=== PATIENT | female | born 1970 | race Caucasian/White ===

== ENCOUNTER 2016-12-20 22:58 | Inpatient (IN) ==
[2016-12-21] MEDS ORDERED: Naloxone 0.4 MG/ML INJ IVP PRN (03:36)
[2016-12-21] MEDS ORDERED: Ondansetron 4 MG/2 ML VIAL IVP PRN (03:36)
[2016-12-21] MEDS ORDERED: *HR* HYDROmorphone (PF) 1 MG/ML SYRINGE IVP PRN (03:36)
[2016-12-21] MEDS ORDERED: Acetaminophen 325 MG TABLET PO PRN (03:36)
[2016-12-21] MEDS ORDERED: *HR* Promethazine 25 MG/ML VIAL IVP PRN (03:36)
[2016-12-21] MEDS ORDERED: 0.9 % Sodium Chloride 1,000 ML IVC SCH (03:45)
[2016-12-21] MEDS ORDERED: Albuterol 2.5 MG/3 ML NEBULIZER IH PRN (03:48)
[2016-12-21] MEDS ORDERED: Dextrose Gel 15 GM PO PRN ×2 (03:48)
[2016-12-21] MEDS ORDERED: *HR* OxyCODONE/APAP 10/325 TABLET PO PRN (03:48)
[2016-12-21] MEDS ORDERED: *HR* Dextrose 50 % in Water (Syg) 50 ML SYRINGE IVP PRN (03:48)
[2016-12-21] MEDS ORDERED: D5% in Water 1,000 ML IVC PRN (03:48)
[2016-12-21] MEDS ORDERED: Vancomycin (wt based) 1,000 MG VIAL IVPB SCH (04:00)
[2016-12-21] MEDS: Ipratropium/Albuterol Neb 3 ML IH SCH ×4 (04:25→21:48)
[2016-12-21 05:16] LABS: Basophils # 0.1 K/mcL (0.0-0.2); Basophils % 0.3 %; Eosinophils # 0.1 K/mcL (0.0-0.6); Eosinophils % 0.6 %; Hematocrit 39.7 % (35.3-44.9); Hemoglobin 13.2 g/dL (11.5-15.4); Immature Granulocytes % 0.9 % (0-4); Immature Platelets 4.1 % (1.1-6.1); Lymphocytes # 1.5 K/mcL (0.6-4.6); Lymphocytes % 8.2 %; Mean Corpuscular HGB Conc 33.2 g/dL (31.6-35.5); Mean Corpuscular Hemoglobin 28.4 pg (28.0-33.3); Mean Corpuscular Volume 85.4 fL (83.0-100.0); Mean Platelet Volume 10.4 fL (9.4-12.4); Monocytes # 0.9 K/mcL (0.0-1.3); Monocytes % 4.7 %; Neutrophils # 15.9 K/mcL (1.6-8.9); Platelet Count 367 K/mcL (140-400); Red Blood Count 4.65 M/mcL (3.82-4.97); Red Cell Distribution Width 12.5 % (11.5-14.5); Segmented Neutrophils % 85.3 %
[2016-12-21 05:20] LABS: INR 1.1; Prothrombin Time 11.9 Seconds (9.4-12.1)
[2016-12-21 05:23] LABS: Activated Partial Thrombo Time 30.1 Seconds (26.0-36.0)
[2016-12-21 05:33] LABS: Hemoglobin A1C 12.1 %
[2016-12-21 05:35] LABS: BUN/Creatinine Ratio 13 (6-26); Blood Urea Nitrogen 10 mg/dL (7-20); Calcium 10.1 mg/dL (8.6-10.8); Carbon Dioxide 28 mEq/L (19-29); Chloride 91 mEq/L (98-109); Glucose 231 mg/dL (70-99); Magnesium 1.8 mg/dL (1.6-2.6); Osmolality,Calculated 286 (280-300); Potassium 3.1 mEq/L (3.5-4.5); Sodium 135 mEq/L (136-145); eGFR For African Americans > 60 (> 60); eGFR For Non-African Americans > 60 (> 60)
[2016-12-21 05:37] LABS: Alanine Aminotransferase 7 Units/L (0-55); Albumin 2.4 g/dL (3.5-5.0); Albumin/Globulin Ratio 0.4 (1.1-2.2); Alkaline Phosphatase 117 Units/L (38-126); Aspartate Amino Transferase 5 Units/L (5-34); BUN/Creatinine Ratio 13 (6-26); Bilirubin,Direct 0.3 mg/dL (0.0-0.5); Bilirubin,Indirect 0.3 mg/dL (0.0-1.2); Bilirubin,Total 0.6 mg/dL (0.2-1.2); Blood Urea Nitrogen 10 mg/dL (7-20); Calcium 10.2 mg/dL (8.6-10.8); Carbon Dioxide 27 mEq/L (19-29); Chloride 92 mEq/L (98-109); Globulin 5.8 g/dL (2.4-3.5); Glucose 232 mg/dL (70-99); Osmolality,Calculated 288 (280-300); Potassium 3.2 mEq/L (3.5-4.5); Sodium 136 mEq/L (136-145); Total Protein 8.2 g/dL (6.0-8.3); eGFR For African Americans > 60 (> 60); eGFR For Non-African Americans > 60 (> 60)
--- NOTE | 2016-12-21 05:45 | Internal Med History&Physical ---
Date of Encounter: 12/21/16 Time of Encounter: 05:41 Assessment and Plan (1) Osteomyelitis of toe of right foot Current visit: Yes Status: Acute We will consult podiatry. We will treat the patient with vancomycin and Zosyn to cover gram-negative rods including Pseudomonas, anaerobic bacteria and MRSA. Obtain ESR and CRP. (2) Cellulitis of foot, right Current visit: Yes Status: Acute We will obtain blood cultures. We will treat her with broad-spectrum IV antibiotics. She is at high risk for morbidity and complications due to treatment with IV vancomycin which requires blood level monitoring for toxicity. (3) Type 2 diabetes mellitus Current visit: Yes Status: Acute Hold oral antidiabetic medication. Start long-acting insulin, pre-meal and correction sliding scale. Check hemoglobin A1c. Qualifiers: Diabetes mellitus complication status: without complication Diabetes mellitus jail insulin use: with middle or intermediate school principal use Qualified Code(s): E11.9 - Type 2 diabetes mellitus without complications; Z79.4 - jail (current) use of insulin (4) Sepsis Current visit: Yes Status: Acute Based on fever and elevated white blood cell count in the presence of infection. We will obtain blood cultures, lactic acid level, basic labs, we will treat her with Zosyn and vancomycin to cover skin sources. Follow-up blood cultures sent from [facility]. Qualifiers: Sepsis type: sepsis due to unspecified organism Qualified Code(s): A41.9 - Sepsis, unspecified organism (5) Hypertension Current visit: Yes Status: Acute Continue lisinopril and clonidine. Monitor blood pressure closely. Qualifiers: Hypertension type: essential hypertension Qualified Code(s): I10 - Essential (primary) hypertension (6) Tobacco abuse Current visit: Yes Status: Acute I have advised smoking cessation and provided counseling. (7) DVT prophylaxis Current visit: Yes Status: Acute Lovenox prophylaxis. Internal Medicine - H&P: HPI Chief complaint: Right great toe pain Admitted From: Intrahospital Transfer Plans for Post Hospital Care: Home History of present illness: Ms. Peres is a 45 year old female with past medical history significant for hypertension, diabetes and tobacco abuse who was transferred from [facility] for evaluation of right great toe wound and pain. Patient presented to [facility] last night to 2 day history of severe right great toe pain, described as sharp, 10/10 , worse with bearing weight on the right leg. She reports associated fevers and chills, nausea no vomiting or diarrhea. She noted a wound of the right great toe that started 10 days ago and progressively got worse. She noted some sloughing of the skin and minimal bleeding and swelling of the toe. A 10 point review of systems was otherwise negative Past medical history as above Family history positive for diabetes in the patient's mother Social history: She smokes 2 packs of cigarettes a day, denies recreational drug use, denies alcohol abuse Past Med Surg Social Fam HX - Past Medical History Medical history: arthritis, asthma, diabetes, fibromyalgia, hyperlipidemia, hypertension, migraine, other Psychiatric history: anxiety, depression - Past Surgical History Surgical History: cholecystectomy, orthopedic, other, sinus surgery, other - Social History Smoking Status: Current every day smoker Packs per day: 2 Smokeless Tobacco Status: No Alcohol use: rarely Drug use: none - Family History Mother History Unknown: Yes Family Member Ethnicity: Non- Living Status: Still Living Hx Family Cardiac Disorders: Yes (triple bypass) Hx Family Respiratory Disorders: Yes (asthma) Hx Family Cancer: No Hx Family GI Disorders: No Hx Family Genitourinary Disorders: No Hx Family Endocrine Disorder: No Hx Family Musculoskeletal Disorders: No Hx Family Neuromuscular Disorders: No Hx Family Neurologic Disorders: No Hx Family HEENT Disorders: No Hx Family Autoimmune Disorders: No Hx Family Reproductive Disorders: No Hx Family Psychosocial Disorders: No Hx Family Medical Disorders: No Father Living Status: Age at : 59 Hx Family Cardiac Disorders: No Hx Family Respiratory Disorders: No Hx Family Cancer: Yes (bladder cancer) Hx Family GI Disorders: No Hx Family Genitourinary Disorders: No Hx Family Endocrine Disorder: No Hx Family Musculoskeletal Disorders: No Hx Family Neuromuscular Disorders: No Hx Family Neurologic Disorders: No Hx Family HEENT Disorders: No Hx Family Autoimmune Disorders: No Hx Family Reproductive Disorders: No Hx Family Psychosocial Disorders: No Hx Family Medical Disorders: No Internal Medicine - H&P: Meds Albuterol Sulfate [Proair HFA] 1 puff IH PRN PRN 12/05/14 [History] Albuterol Sulfate [Proair HFA] 1 puff IH PRN PRN 12/05/14 [History] CloNIDine HCl 0.3 mg PO BID 12/05/14 [History] DiphenhydraMINE [Benadryl] 25 mg PO HS 12/05/14 [History] Duloxetine HCl [Cymbalta] 90 mg PO DAILY 12/05/14 [History] Folic Acid 1 mg PO DAILY 12/05/14 [History] Gabapentin [Neurontin] 600 mg PO QID 12/05/14 [History] Insulin Glargine,Hum.rec.anlog [Lantus Solostar] 80 unit SQ HS 12/05/14 [History ] Insulin LISPRO [Humalog] 20 unit SQ 3-4XD 12/05/14 [History] Loratadine [Claritin] 10 mg PO DAILY 12/05/14 [History] Losartan Potassium [Cozaar] 100 mg PO DAILY 12/05/14 [History] Lubiprostone [Amitiza] 24 mcg PO BID 12/05/14 [History] Metformin HCl [Glucophage] 1,000 mg PO BID 12/05/14 [History] Methocarbamol [Robaxin] 500 mg PO DAILY 12/05/14 [History] Mometasone/Formoterol [Dulera 200 Mcg/5 Mcg Inhaler] 8.8 gm IH BID 12/05/14 [ History] Montelukast [Singulair] 10 mg PO DAILY 12/05/14 [History] Oxycodone HCl/Acetaminophen [Percocet 10-325 mg Tablet] 1 each PO Q4HR 12/05/14 [History] Promethazine [Phenergan] 25 mg PO Q6HR PRN #20 tablet 12/05/14 [Rx] Rosuvastatin Calcium [Crestor] 20 mg PO DAILY 12/05/14 [History] Spironolactone [Aldactone] 50 mg PO DAILY 12/05/14 [History] Vitamin E 400 unit PO DAILY 12/05/14 [History] hydroCHLOROthiazide [Hydrochlorothiazide] 50 mg PO DAILY 12/05/14 [History] tiZANidine [Zanaflex] 4 mg PO BID 12/05/14 [History] OxyCODONE/APAP 5/325 [Percocet 5/325 MG] 1 each PO Q6HR PRN #10 tablet 10/31/15 [Rx] 3 Allergy/AdvReac Type Severity Reaction Status Date / Time acetaminophen [From Midrin] Allergy Unknown unknown Verified 12/05/14 18:26 amitriptyline Allergy Unknown unknown Verified 12/05/14 18:26 ciprofloxacin Allergy Unknown unknown Verified 12/05/14 18:26 codeine Allergy Unknown unknown Verified 12/05/14 18:26 daptomycin [From Cubicin] Allergy Unknown unkknown Verified 12/05/14 18:26 dichloralphenazone Allergy Unknown unknown Verified 12/05/14 18:26 [From Midrin] Hydromorphone [From Dilaudid] Allergy Unknown unknown Verified 12/05/14 18:26 ibuprofen Allergy Unknown unknown Verified 12/05/14 18:26 Isometheptene [From Midrin] Allergy Unknown unknown Verified 12/05/14 18:26 latex Allergy Unknown unknown Verified 12/05/14 18:26 lisinopril Allergy Unknown unknown Verified 12/05/14 18:26 morphine Allergy Unknown unknown Verified 12/05/14 18:26 nifedipine Allergy Unknown unknown Verified 12/05/14 18:26 Sulfa (Sulfonamide Allergy Unknown unknown Verified 12/05/14 18:26 Antibiotics) sulfamethoxazole Allergy Unknown unknown Verified 12/05/14 18:26 [From Bactrim] sumatriptan [From Imitrex] Allergy Unknown unknown Verified 12/05/14 18:26 trimethoprim [From Bactrim] Allergy Unknown unknown Verified 12/05/14 18:26 All Systems PM: A 10-system review of systems was performed and is negative for pertinent findings except as documented above in the HPI. - Constitutional Vitals: Temp Pulse Resp BP Pulse Ox 98.3 F 88 17 131/75 96 12/21/16 03:55 12/21/16 03:55 12/21/16 03:55 12/21/16 03:55 12/21/16 03:55 General appearance: Present: A&O X 3 - Eye Eye exam: Present: PERRL, conjuntiva pink, sclera anicteric Pupils: Present: PERRL - Respiratory Respiratory exam: Present: CTAB. Absent: accessory muscle use, rales, rhonchi, wheezes - Cardiovascular Cardiovascular exam: Present: RRR, +S1, +S2. Absent: diastolic murmur, gallop, rubs, systolic murmur - GI/Abdominal GI/Abdominal exam: Present: normal bowel sounds, soft, no peritoneal signs. Absent: distended, tenderness - Extremities Exam Extremities exam: Present: warm, radial pulses palpable and symmetrical. Absent : calf tenderness, cyanotic, pedal edema - Neurological Exam Neurological exam: Present: CN II-XII intact, oriented X3, no focal deficits. Absent: pronater drift, facial droop, speech deficit - Skin Additional comments: Right great toe erythema and a complex necrotic wound on the plantar surface surrounded by skin erythema extended into the dorsum of the forefoot. Internal Med - H&P Results - Labs CBC & Chem 7: 12/21/16 05:06 12/21/16 05:06 Labs: Short CBC 12/21/16 Range/Units 05:06 WBC 18.6 H (4.3-11.1) K/mcL Hgb 13.2 (11.5-15.4) g/dL Hct 39.7 (35.3-44.9) % Plt Count 367 (140-400) K/mcL Neutrophils # 15.9 H (1.6-8.9) K/mcL BMP 12/21/16 12/21/16 05:06 05:06 Sodium 136 135 L Potassium 3.2 L 3.1 L Chloride 92 L 91 L Carbon Dioxide 27 28 BUN 10 10 Creatinine 0.77 0.78 Glucose 232 H 231 H Calcium 10.2 10.1 Liver Function 12/21/16 Range/Units 05:06 Total Bilirubin 0.6 (0.2-1.2) mg/dL Direct Bilirubin 0.3 (0.0-0.5) mg/dL AST 5 (5-34) Units/L ALT 7 (0-55) Units/L Alkaline Phosphatase 117 (38-126) Units/L Albumin 2.4 L (3.5-5.0) g/dL - Impressions Laboratory work reviewed from [facility] records drawn yesterday: White blood cell count 21,000, hemoglobin 14.1, platelets 372, sodium 123, potassium 3.0, BUN 15, creatinine 0.86, glucose 303. X-ray of the right foot shows right great toe soft tissue swelling and bone changes concerning for osteomyelitis of the phalanx.
[2016-12-21] MEDS ORDERED: *HR* FentaNYL (PF) 100 MCG/2 ML VIAL IVP PRN (05:50)
[2016-12-21] MEDS ORDERED: *HR* Enoxaparin 30 MG/0.3 ML SYRINGE SQ SCH (06:00)
[2016-12-21] MEDS ORDERED: Ketorolac 30 MG/ML VIAL IVP ONE (06:55)
[2016-12-21] MEDS ORDERED: *HR* OxyCODONE/APAP 5/325 TABLET PO PRN (06:57)
[2016-12-21] MEDS ORDERED: Potassium Chloride Elixir 20 MEQ/15 ML UDC PO ONE (07:43)
[2016-12-21] MEDS: Insulin LISPRO 300 UNITS/3 ML VIAL SQ SCH ×6 (08:10→16:30)
[2016-12-21] MEDS: Piperacillin/Tazobactam 3.375 GM in D5% in Water (Mini-Bag+) 100 ML IVPB SCH ×2 (08:11→16:29)
[2016-12-21] MEDS: hydroCHLOROthiazide 25 MG TABLET PO SCH (08:13)
[2016-12-21] MEDS: Gabapentin 300 MG CAPSULE PO SCH ×4 (08:13→22:24)
[2016-12-21] MEDS: cloNIDine HCl 0.1 MG TABLET PO SCH ×2 (08:13→22:21)
[2016-12-21] MEDS: Lubiprostone [Amitiza] 24 MCG PO SCH ×2 (08:14→22:27)
[2016-12-21] MEDS: Loratadine 10 MG TABLET PO SCH (08:14)
[2016-12-21] MEDS: tiZANidine 4 MG TABLET PO SCH ×2 (08:14→22:23)
[2016-12-21] MEDS: Insulin DETEMIR 100 UNIT/ML X5UNITS SQ SCH ×2 (08:24→22:24)
[2016-12-21] MEDS: Methocarbamol 500 MG TABLET PO SCH (08:25)
--- NOTE | 2016-12-21 11:47 | Event Note ---
Date of Encounter: 12/21/16 Time of Encounter: 08:25 Patient is awake and alert. Pain in right foot is better controlled. Denies any fever or chills. Evaluated by podiatry. Plan to take patient down to the OR for surgery tomorrow morning. Continue IV antibiotics.
[2016-12-21] MEDS: Vancomycin 1,250 MG in D5% in Water 250 ML IVPB SCH ×2 (12:03→23:19)
[2016-12-21] MEDS: 0.9 % Sodium Chloride w KCl 20 MEQ/1,000 ML MLS IVC SCH (12:03)
[2016-12-21] MEDS: *HR* OxyCODONE/APAP 10/325 TABLET PO PRN ×2 (16:30→21:50)
[2016-12-21] MEDS ORDERED: Insulin LISPRO 300 UNITS/3 ML VIAL SQ SCH (21:00)
[2016-12-22] MEDS: Piperacillin/Tazobactam 3.375 GM in D5% in Water (Mini-Bag+) 100 ML IVPB SCH ×3 (00:18→17:49)
[2016-12-22] MEDS: Ipratropium/Albuterol Neb 3 ML IH SCH ×4 (03:23→21:53)
[2016-12-22] MEDS ORDERED: *HR* Enoxaparin 40 MG/0.4 ML SYRINGE SQ SCH (06:00)
[2016-12-22 07:45] LABS: Basophils # 0.1 K/mcL (0.0-0.2); Basophils % 0.4 %; Eosinophils # 0.1 K/mcL (0.0-0.6); Eosinophils % 0.6 %; Hematocrit 39.6 % (35.3-44.9); Hemoglobin 12.8 g/dL (11.5-15.4); Immature Granulocytes % 1.1 % (0-4); Lymphocytes # 1.9 K/mcL (0.6-4.6); Mean Corpuscular HGB Conc 32.3 g/dL (31.6-35.5); Mean Corpuscular Hemoglobin 28.2 pg (28.0-33.3); Mean Corpuscular Volume 87.2 fL (83.0-100.0); Mean Platelet Volume 10.6 fL (9.4-12.4); Neutrophils # 15.8 K/mcL (1.6-8.9); Platelet Count 416 K/mcL (140-400); Red Blood Count 4.54 M/mcL (3.82-4.97); Red Cell Distribution Width 12.7 % (11.5-14.5); Segmented Neutrophils % 82.9 %
[2016-12-22] MEDS: *HR* OxyCODONE/APAP 10/325 TABLET PO PRN ×3 (08:00→21:45)
[2016-12-22] MEDS: 0.9 % Sodium Chloride w KCl 20 MEQ/1,000 ML MLS IVC SCH ×2 (08:00→15:16)
[2016-12-22] MEDS ORDERED: Insulin LISPRO 300 UNITS/3 ML VIAL SQ SCH ×6 (08:05→21:00)
[2016-12-22 08:13] LABS: BUN/Creatinine Ratio 14 (6-26); Blood Urea Nitrogen 10 mg/dL (7-20); Calcium 10.1 mg/dL (8.6-10.8); Carbon Dioxide 24 mEq/L (19-29); Chloride 93 mEq/L (98-109); Glucose 288 mg/dL (70-99); Osmolality,Calculated 286 (280-300); Potassium 3.3 mEq/L (3.5-4.5); Sodium 133 mEq/L (136-145); eGFR For African Americans > 60 (> 60); eGFR For Non-African Americans > 60 (> 60)
[2016-12-22] MEDS ORDERED: *HR* Meperidine 25 MG/ML SYRINGE IVP PRN (08:57)
[2016-12-22] MEDS: Methocarbamol 500 MG TABLET PO SCH (09:34)
[2016-12-22] MEDS: hydroCHLOROthiazide 25 MG TABLET PO SCH (09:34)
[2016-12-22] MEDS: tiZANidine 4 MG TABLET PO SCH ×2 (09:35→21:45)
[2016-12-22] MEDS: cloNIDine HCl 0.1 MG TABLET PO SCH ×2 (09:35→21:43)
[2016-12-22] MEDS: Loratadine 10 MG TABLET PO SCH (09:35)
[2016-12-22] MEDS: Gabapentin 300 MG CAPSULE PO SCH ×3 (09:35→21:44)
[2016-12-22] MEDS: Insulin DETEMIR 100 UNIT/ML X5UNITS SQ SCH ×2 (09:36→22:24)
[2016-12-22] MEDS: Lubiprostone [Amitiza] 24 MCG PO SCH (09:40)
--- NOTE | 2016-12-22 10:53 | Anesthesia Evaluation PreOp ---
Date of Encounter: 12/22/16 Time of Encounter: 11:41 - Past History Planned Operation: Right Great Toe Amputation Cardiac History: HTN, Hyperlipidemia Pulmonary History: Smoker (31 years), Asthma REPORT CLERK History: Other (chronic back pain, migraine SHEA's) Other Medical History: Diabetes Type II, Other (fibromyalgia) Anesthesia History: No Prior Anesthetic Complications, Past Anesthesia Alcohol Use: rarely Drug use: none Medications and Allergies Albuterol Sulfate [Proair HFA] 1 puff IH PRN PRN 12/05/14 [History] Albuterol Sulfate [Proair HFA] 1 puff IH PRN PRN 12/05/14 [History] CloNIDine HCl 0.3 mg PO BID 12/05/14 [History] DiphenhydraMINE [Benadryl] 25 mg PO HS 12/05/14 [History] Duloxetine HCl [Cymbalta] 90 mg PO DAILY 12/05/14 [History] Folic Acid 1 mg PO DAILY 12/05/14 [History] Gabapentin [Neurontin] 600 mg PO QID 12/05/14 [History] Insulin Glargine,Hum.rec.anlog [Lantus Solostar] 80 unit SQ HS 12/05/14 [History ] Insulin LISPRO [Humalog] 20 unit SQ 3-4XD 12/05/14 [History] Loratadine [Claritin] 10 mg PO DAILY 12/05/14 [History] Losartan Potassium [Cozaar] 100 mg PO DAILY 12/05/14 [History] Lubiprostone [Amitiza] 24 mcg PO BID 12/05/14 [History] Metformin HCl [Glucophage] 1,000 mg PO BID 12/05/14 [History] Methocarbamol [Robaxin] 500 mg PO DAILY 12/05/14 [History] Mometasone/Formoterol [Dulera 200 Mcg/5 Mcg Inhaler] 8.8 gm IH BID 12/05/14 [ History] Montelukast [Singulair] 10 mg PO DAILY 12/05/14 [History] Oxycodone HCl/Acetaminophen [Percocet 10-325 mg Tablet] 1 each PO Q4HR 12/05/14 [History] Promethazine [Phenergan] 25 mg PO Q6HR PRN #20 tablet 12/05/14 [Rx] Rosuvastatin Calcium [Crestor] 20 mg PO DAILY 12/05/14 [History] Spironolactone [Aldactone] 50 mg PO DAILY 12/05/14 [History] Vitamin E 400 unit PO DAILY 12/05/14 [History] hydroCHLOROthiazide [Hydrochlorothiazide] 50 mg PO DAILY 12/05/14 [History] tiZANidine [Zanaflex] 4 mg PO BID 12/05/14 [History] OxyCODONE/APAP 5/325 [Percocet 5/325 MG] 1 each PO Q6HR PRN #10 tablet 10/31/15 [Rx] 3 Allergy/AdvReac Type Severity Reaction Status Date / Time acetaminophen [From Midrin] Allergy Unknown unknown Verified 12/05/14 18:26 amitriptyline Allergy Unknown unknown Verified 12/05/14 18:26 ciprofloxacin Allergy Unknown unknown Verified 12/05/14 18:26 codeine Allergy Unknown unknown Verified 12/05/14 18:26 daptomycin [From Cubicin] Allergy Unknown unkknown Verified 12/05/14 18:26 dichloralphenazone Allergy Unknown unknown Verified 12/05/14 18:26 [From Midrin] Hydromorphone [From Dilaudid] Allergy Unknown unknown Verified 12/05/14 18:26 ibuprofen Allergy Unknown unknown Verified 12/05/14 18:26 Isometheptene [From Midrin] Allergy Unknown unknown Verified 12/05/14 18:26 latex Allergy Unknown unknown Verified 12/05/14 18:26 lisinopril Allergy Unknown unknown Verified 12/05/14 18:26 morphine Allergy Unknown unknown Verified 12/05/14 18:26 nifedipine Allergy Unknown unknown Verified 12/05/14 18:26 Sulfa (Sulfonamide Allergy Unknown unknown Verified 12/05/14 18:26 Antibiotics) sulfamethoxazole Allergy Unknown unknown Verified 12/05/14 18:26 [From Bactrim] sumatriptan [From Imitrex] Allergy Unknown unknown Verified 12/05/14 18:26 trimethoprim [From Bactrim] Allergy Unknown unknown Verified 12/05/14 18:26 - Meds/Allergy Pre-op Review Medications Reviewed: Yes Allergies Reviewed: Yes Beta Blockers on Current Med List: No Anesthesia Results - Labs 12/22/16 04:40 12/22/16 07:55 - Imaging EKG: report reviewed (12/21/2016 SR) Anesthesia Exam Vital Signs/O2 Sat/Glucose, Most Recent Temp Pulse Resp BP Pulse Ox 99.4 F 109 20 156/90 95 12/22/16 06:35 12/22/16 06:35 12/22/16 06:35 12/22/16 06:35 12/22/16 06:35 Blood Glucose* 318 Height: 5'4''/1.63 m Weight: 176 lbs/79.9 kg NPO (# of Hours): 8 Pain Scale: 0 Pain Scale Used: Numeric (1 - 10) - HEENT Pupil (Motor): EOMI Mallampati: III Teeth: Missing, Poor dentition (numerous broken teeth upper and lower) Oral Opening: Greater than 3 - REPORT CLERK LOC: Oriented REPORT CLERK Motor: Normal RUE, Normal LUE, Normal RLE, Normal LLE, Normal Face REPORT CLERK Sensory: Normal: RUE, LUE, Face, Deficit: RLE, LLE - Cardiac Rhythm: Regular Murmur: None - Pulmonary Breath Sounds: bilateral Clear Respiratory Effort: Symmetrical Anesthesia Assess/Plan ASA Score: 3 Modified [place] Scale for Level of Consciousness: Cooperative, oriented, and tranquil Anesthetic Plan: MAC Monitoring Plan: Standard Monitors
[2016-12-22] MEDS ORDERED: Bupivacaine/Clonidine Syringe 1 EACH SYRINGE ONE (11:52)
[2016-12-22] MEDS ORDERED: *HR* FentaNYL (PF) 100 MCG/2 ML VIAL ONE (12:01)
[2016-12-22] MEDS ORDERED: *HR* Midazolam HCl 2 MG/2 ML VIAL ONE (12:01)
[2016-12-22] MEDS ORDERED: Propofol 500 MG/50 ML INFUS..BTL ONE (12:01)
[2016-12-22] MEDS ORDERED: Lidocaine -MPF 2% 2 ML VIAL ONE (12:13)
[2016-12-22] MEDS ORDERED: Ketamine *HR* 500 MG/10 ML MDV ONE (12:55)
[2016-12-22] MEDS ORDERED: *HR* Propofol 200 MG/20 ML VIAL IVP ONE (13:44)
--- NOTE | 2016-12-22 14:41 | Internal Med Progress Note ---
Date of Encounter: 12/22/16 Time of Encounter: 08:20 - Assessment and plan (1) Sepsis Current Visit: Yes Status: Acute Assessment and plan: From cellulitis and necrosis involving the right great toe. Leukocytosis persists. Lactic acid level normal. Blood cultures have been negative. Continue broad-spectrum IV antibiotics. Plan for surgery later today Qualifiers: Sepsis type: sepsis due to unspecified organism Qualified Code(s): A41.9 - Sepsis, unspecified organism (2) Osteomyelitis of toe of right foot Current Visit: Yes Status: Suspected Assessment and plan: Patient with severely elevated ESR and CRP. Concern for osteomyelitis. X-ray does not show any features or so of osteomyelitis. Podiatry has been consulted. We will follow recommendations. Continue IV antibiotics. (3) Cellulitis of foot, right Current Visit: Yes Status: Acute Assessment and plan: Management as above (4) Type 2 diabetes mellitus Current Visit: Yes Status: Chronic Assessment and plan: Blood sugars are elevated. We will increase insulin regimen. Continue to monitor blood sugars closely. Qualifiers: Diabetes mellitus complication status: without complication Diabetes mellitus operator bearer systems insulin use: with fpc use Qualified Code(s): E11.9 - Type 2 diabetes mellitus without complications; Z79.4 - shank pinner (current) use of insulin (5) Hypertension Current Visit: Yes Status: Chronic Assessment and plan: Blood pressure is elevated this morning likely from pain. It has been well controlled at other times. Qualifiers: Hypertension type: essential hypertension Qualified Code(s): I10 - Essential (primary) hypertension (6) Tobacco abuse Current Visit: Yes Status: Acute (7) DVT prophylaxis Current Visit: Yes Status: Acute Assessment and plan: On Lovenox - Subjective Interval history: Patient complains of pain in her right foot and is upset that she has not yet been taken down for surgery. Explained to her that it depends on availability of operating room and staffing. Patient adamant that Dr. Alexander told her that she would be taken for surgery first in the morning and that she was transferred here to undergo surgery earlier than it was possible at [facility]. Concerned that she would lose her foot. Explained to her that she does have good circulation and she would undergo surgery as soon as an operating room is available for her. - Constitutional Vitals: Temp Pulse Resp BP Pulse Ox 99.4 F 109 20 156/90 95 12/22/16 06:35 12/22/16 06:35 12/22/16 06:35 12/22/16 06:35 12/22/16 06:35 General appearance: Present: cooperative, mild distress, A&O X 3, answers questions appropriately - Neck Neck exam general surgery: Present: supple, trachea midline. Absent: lymphadenopathy - Respiratory Respiratory exam: Present: CTAB. Absent: accessory muscle use, rales, rhonchi, wheezes - Cardiovascular Cardiovascular exam: Present: RRR, +S1, +S2. Absent: diastolic murmur, gallop, rubs, systolic murmur - GI/Abdominal GI/Abdominal exam: Present: normal bowel sounds, soft, no peritoneal signs. Absent: distended, tenderness - Extremities Exam Extremities exam: Present: tenderness, warm, radial pulses palpable and symmetrical. Absent: calf tenderness, cyanotic, pedal edema Additional comments: Erythema and swelling involving the right great toe with necrotic wound on the plantar surface - Neurological Exam Neurological exam: Present: alert, oriented X3, no focal deficits, strengths equal and symetr throughout. Absent: facial droop, speech deficit Internal Medicine: Result - Labs CBC & Chem 7: 12/22/16 04:40 12/22/16 07:55 Labs: Short CBC 12/22/16 Range/Units 04:40 WBC 19.1 H (4.3-11.1) K/mcL Hgb 12.8 (11.5-15.4) g/dL Hct 39.6 (35.3-44.9) % Plt Count 416 H (140-400) K/mcL Neutrophils # 15.8 H (1.6-8.9) K/mcL BMP 12/22/16 07:55 Sodium 133 L Potassium 3.3 L Chloride 93 L Carbon Dioxide 24 BUN 10 Creatinine 0.72 Glucose 288 H Calcium 10.1 - ABG Interpretation ABG results: PT/INR, D-dimer PT 11.9 Seconds (9.4-12.1) 12/21/16 05:06 Consult Discharge Plan - Plan Referrals: Andrea Boland MD [Primary Care Provider] -
[2016-12-22] MEDS ORDERED: D5% in Water 1,000 ML IVC PRN (14:52)
[2016-12-22] MEDS ORDERED: Ondansetron 4 MG/2 ML VIAL IVP PRN (14:52)
[2016-12-22] MEDS ORDERED: Albuterol 2.5 MG/3 ML NEBULIZER IH PRN (14:52)
[2016-12-22] MEDS ORDERED: *HR* Dextrose 50 % in Water (Syg) 50 ML SYRINGE IVP PRN (14:52)
[2016-12-22] MEDS ORDERED: *HR* Promethazine 25 MG/ML VIAL IVP PRN (14:52)
[2016-12-22] MEDS ORDERED: Acetaminophen 325 MG TABLET PO PRN (14:52)
[2016-12-22] MEDS ORDERED: Naloxone 0.4 MG/ML INJ IVP PRN (14:52)
[2016-12-22] MEDS ORDERED: Dextrose Gel 15 GM PO PRN ×2 (14:52)
[2016-12-22] MEDS: Vancomycin 1,250 MG in D5% in Water 250 ML IVPB SCH (16:38)
--- NOTE | 2016-12-22 17:05 | Electrocardiograph Report ---
[place] [id number] Test Date: 2016-12-21 Pat Name: Janis Peres Department: 114 Room: 3A Gender: F Echometer Engineer: [id number] : 1970 Requested By: Neda Owen Order Number: [id number] Reading MD: Rowena Vásquez Measurements Intervals [place] Rate: 99 P: 75 OR: 145 QRS: 77 QRSD: 98 T: 50 QT: 356 QTc: 412 Interpretive Statements SINUS RHYTHM Electronically Signed On 12-22-2016 17:04:03 EDT by Rowena Vásquez
--- NOTE | 2016-12-22 17:37 | Podiatry Consult Note ---
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 Patient voiced comprehension. Patient has ample opportunity ask questions about planned procedure does questions or answer satisfaction. No guarantees or assurances were made the patient as to the outcome of incision and drainage debridement and amputation of right great toe. (2) Cellulitis of foot, right Current visit: Yes Status: Acute History of Present Illness Chief complaint: Necrotic infected right great toe HPI: Ms. Peres is a 45 year old female, admitted per ED for active infection of the right foot and possible sepsis. Patient with long history of diabetes and previous amputation of fourth toe left foot. Patient states that her doctor in [place] was willing to remove her right great toe this coming Thursday. Patient became grossly infected with constitutional symptoms of infection presented to [facility] urgent care in [place] and then was transferred to [facility]. She presently does not complain of any chest pain nausea vomiting fever chills she is sitting upright in bed conversant in no acute distress answers questions appropriately is oriented 3. Patient with necrotic toe plantar aspect with associated cellulitis of the right forefoot involving the first ray. Past Med Surg Social Fam HX - Past Medical History Medical history: arthritis, asthma, diabetes, fibromyalgia, hyperlipidemia, hypertension, migraine, other Psychiatric history: anxiety, depression - Past Surgical History Surgical History: cholecystectomy, orthopedic, other, sinus surgery, other - Social History Smoking Status: Current every day smoker Packs per day: 2 Smokeless Tobacco Status: No Alcohol use: rarely Drug use: none - Family History Mother History Unknown: Yes Family Member Ethnicity: Non- Living Status: Still Living Hx Family Cardiac Disorders: Yes (triple bypass) Hx Family Respiratory Disorders: Yes (asthma) Hx Family Cancer: No Hx Family GI Disorders: No Hx Family Genitourinary Disorders: No Hx Family Endocrine Disorder: No Hx Family Musculoskeletal Disorders: No Hx Family Neuromuscular Disorders: No Hx Family Neurologic Disorders: No Hx Family HEENT Disorders: No Hx Family Autoimmune Disorders: No Hx Family Reproductive Disorders: No Hx Family Psychosocial Disorders: No Hx Family Medical Disorders: No Father Living Status: Age at : 59 Hx Family Cardiac Disorders: No Hx Family Respiratory Disorders: No Hx Family Cancer: Yes (bladder cancer) Hx Family GI Disorders: No Hx Family Genitourinary Disorders: No Hx Family Endocrine Disorder: No Hx Family Musculoskeletal Disorders: No Hx Family Neuromuscular Disorders: No Hx Family Neurologic Disorders: No Hx Family HEENT Disorders: No Hx Family Autoimmune Disorders: No Hx Family Reproductive Disorders: No Hx Family Psychosocial Disorders: No Hx Family Medical Disorders: No Medications and Allergies Albuterol Sulfate [Proair HFA] 1 puff IH PRN PRN 12/05/14 [History] Albuterol Sulfate [Proair HFA] 1 puff IH PRN PRN 12/05/14 [History] CloNIDine HCl 0.3 mg PO BID 12/05/14 [History] DiphenhydraMINE [Benadryl] 25 mg PO HS 12/05/14 [History] Duloxetine HCl [Cymbalta] 90 mg PO DAILY 12/05/14 [History] Folic Acid 1 mg PO DAILY 12/05/14 [History] Gabapentin [Neurontin] 600 mg PO QID 12/05/14 [History] Loratadine [Claritin] 10 mg PO DAILY 12/05/14 [History] Losartan Potassium [Cozaar] 100 mg PO DAILY 12/05/14 [History] Lubiprostone [Amitiza] 24 mcg PO BID 12/05/14 [History] Metformin HCl [Glucophage] 1,000 mg PO BID 12/05/14 [History] Methocarbamol [Robaxin] 500 mg PO DAILY 12/05/14 [History] Mometasone/Formoterol [Dulera 200 Mcg/5 Mcg Inhaler] 8.8 gm IH BID 12/05/14 [ History] Montelukast [Singulair] 10 mg PO DAILY 12/05/14 [History] Oxycodone HCl/Acetaminophen [Percocet 10-325 mg Tablet] 1 each PO Q4HR 12/05/14 [History] Promethazine [Phenergan] 25 mg PO Q6HR PRN #20 tablet 12/05/14 [Rx] Rosuvastatin Calcium [Crestor] 20 mg PO DAILY 12/05/14 [History] Spironolactone [Aldactone] 50 mg PO DAILY 12/05/14 [History] Vitamin E 400 unit PO DAILY 12/05/14 [History] hydroCHLOROthiazide [Hydrochlorothiazide] 50 mg PO DAILY 12/05/14 [History] tiZANidine [Zanaflex] 4 mg PO BID 12/05/14 [History] OxyCODONE/APAP 5/325 [Percocet 5/325 MG] 1 each PO Q6HR PRN #10 tablet 10/31/15 [Rx] 3 Allergy/AdvReac Type Severity Reaction Status Date / Time acetaminophen [From Midrin] Allergy Unknown unknown Verified 12/05/14 18:26 amitriptyline Allergy Unknown unknown Verified 12/05/14 18:26 ciprofloxacin Allergy Unknown unknown Verified 12/05/14 18:26 codeine Allergy Unknown unknown Verified 12/05/14 18:26 daptomycin [From Cubicin] Allergy Unknown unkknown Verified 12/05/14 18:26 dichloralphenazone Allergy Unknown unknown Verified 12/05/14 18:26 [From Midrin] Hydromorphone [From Dilaudid] Allergy Unknown unknown Verified 12/05/14 18:26 ibuprofen Allergy Unknown unknown Verified 12/05/14 18:26 Isometheptene [From Midrin] Allergy Unknown unknown Verified 12/05/14 18:26 latex Allergy Unknown unknown Verified 12/05/14 18:26 lisinopril Allergy Unknown unknown Verified 12/05/14 18:26 morphine Allergy Unknown unknown Verified 12/05/14 18:26 nifedipine Allergy Unknown unknown Verified 12/05/14 18:26 Sulfa (Sulfonamide Allergy Unknown unknown Verified 12/05/14 18:26 Antibiotics) sulfamethoxazole Allergy Unknown unknown Verified 12/05/14 18:26 [From Bactrim] sumatriptan [From Imitrex] Allergy Unknown unknown Verified 12/05/14 18:26 trimethoprim [From Bactrim] Allergy Unknown unknown Verified 12/05/14 18:26 All Systems Reviewed: A 10-system review of systems was performed and is negative for pertinent findings except as documented above in the HPI. Physical Exam - Constitutional Vitals: Temp Pulse Resp BP Pulse Ox 99.4 F 109 20 156/90 95 12/22/16 06:35 12/22/16 06:35 12/22/16 06:35 12/22/16 06:35 12/22/16 06:35 General appearance: average body habitus, cooperative, no acute distress - Expanded Lower Extremities Exam Foot/Toe exam: Present: amputation (Dictation of toe #4 left foot. We appreciated an ulceration full thickness with necrosis involving the plantar aspect of the right great toe centered over the interphalangeal joint. We appreciate cellulitis of the right great toe and dorsal aspect and plantar aspect of the first MTPJ no bogginess no fluctuance.) Neuro vascular tendon exam: Present: abnormal 2-point discrimination, decreased fine/light touch, sensory deficit Gait: Present: not tested/not observed - Skin Additional comments: Patient with significant callus on the plantar aspect of the left #1 IPJ left great toe and plantar aspect of the right forefoot at the level of the fourth fifth MTPJ. Hygienists aspect. Patient with extremely dry discolored soiled skin from toes to ankle bilaterally. - Ankle & Foot Foot appearance: swelling, erythema Results - Labs Result Diagrams: 12/22/16 04:40 12/22/16 07:55 Labs: Abnormal lab results WBC 19.1 K/mcL (4.3-11.1) H 12/22/16 04:40 Plt Count 416 K/mcL (140-400) H 12/22/16 04:40 Neutrophils # 15.8 K/mcL (1.6-8.9) H 12/22/16 04:40 ESR >= 130 mm/hr (0-15) H 12/21/16 08:49 Sodium 133 mEq/L (136-145) L 12/22/16 07:55 Potassium 3.3 mEq/L (3.5-4.5) L 12/22/16 07:55 Chloride 93 mEq/L (98-109) L 12/22/16 07:55 Glucose 288 mg/dL (70-99) H 12/22/16 07:55 POC Glucose 297 (58-89) H 12/22/16 16:35 Hemoglobin A1c 12.1 % (-5.6) H 12/21/16 05:06 C-Reactive Protein 351 mg/L (Less than 5) H 12/21/16 08:49 Albumin 2.4 g/dL (3.5-5.0) L 12/21/16 05:06 Globulin 5.8 g/dL (2.4-3.5) H 12/21/16 05:06 Albumin/Globulin Ratio 0.4 (1.1-2.2) L 12/21/16 05:06 H & H 12/22/16 Range/Units 04:40 Hgb 12.8 (11.5-15.4) g/dL Hct 39.6 (35.3-44.9) % All other labs normal. - Diagnostic results Ankle/Foot x-ray: image reviewed Consult Discharge Plan - Plan Referrals: Andrea Boland MD [Primary Care Provider] -
--- NOTE | 2016-12-22 17:48 | Orthopedic Operative Note ---
Date of procedure: 12/22/16 Pre-op diagnosis: #1 necrotic right great toe with abscess right foot Post-op diagnosis: same Procedure: 12/22/16 17:46 #1 incision and drainage to bone for osteomyelitis #2 amputation of right great toe #3 adjacent tissue transfer and placement of wound VAC Implants: None Complications: None Anesthesia: MAC, local Local Anesthetics: 0.25% Sensorcaine HCL SubQ (cc) Surgeon: Arslan Alexander Estimated blood loss (cc): 10 Tourniquet Time (Minutes): 0 Specimen: Cultures 3. Specimen right great toe Condition: stable Disposition: floor Procedure in Detail: 12/22/16 17:47 Details in summary of procedure: The patient was brought to the surgical suite. A sign in procedure performed. Patient transferred to the surgical table and positioned properly safely securely. No tourniquet was used. Right foot and leg elevated on a foam block. Anesthetic timeout taken. Right foot prepped with alcohol 3 times. Patient was sedated and a modified ankle block was carried out with local anesthetic. No epinephrine was used. The right foot was then prepped and draped in usual sterile manner. Surgical timeout was taken. Inspection of the right foot revealed a full thickness necrotic ulcer down to bone of the IP joint measuring 4 cm in length and 3 cm in width. Tissue was completely necrotic we see ascending cellulitis along the plantar medial aspect of the first ray/metatarsal and spreading cellulitis dorsally. Small phlegmon of the medial aspect of the first MTP. At that juncture an incision was made from the midshaft of the first metatarsal medially and brought distally to the level of the MTPJ and then laterally proximal to the line of the IP joint and ending laterally at the junction of the lateral plantar skin and the plantar incision was then made at the level of the MTPJ medially and brought distally and plantarly just proximal to the line of necrosis at the level of the flexion crease and then obliquely toward the lateral aspect of the first toe at the level of the IP joint. These incisions deepened sharply with a #15 scalpel blade to bone. The IP joint was disarticulated purulent drainage was immediately expressed and cultured aerobic and anaerobic. After disarticulation of the IP joint it was placed in formalin and sent to pathology. Incision was then deepened to the proximal phalanx which was then isolated. Incision of the MTP joint revealed seropurulent drainage and it too was then cultured as well the proximal phalanx was isolated and then disarticulated from the head of the first metatarsal which frankly was pristine in nature. It was normal color texture density in character clinically. Abscess and purulent drainage was noted along the flexor tendon inferior to the sesamoids. Sesamoids were then isolated and excised leaving the flexor tendon intact which was of normal color texture density as well. Unfortunately we were noted to express seropurulent drainage along the tendon sheath which was then incised proximally to 1 fingerbreadth distal to the clarke pedis. Incision was lengthened prior to incising the tendon sheath. All necrotic tissue was debrided by surgical excision accordingly with a #15 scalpel blade and Metzenbaum scissor. The wound was then flushed with copious sterile saline. It was then debrided again with ultrasonics Misonix debrider from proximal to distal. The incision itself from the first toe to the proximal medial foot was approximately 15 cm. The wound throughout was thoroughly debrided by surgical excision with ultrasonics Misonix debrider. Area of necrosis on the plantar flap was excised as well as a V section of necrotic tissue full-thickness over the distal dorsal flap. Adjacent tissue transfer was then performed by excising appropriate amounts of necrotic tissue full-thickness and then re- anastomosing the skin plantarly and dorsally. Satisfied that we had a clean wound without obvious necrosis it was loosely closed with 3-0 Prolene distally the flexor tendon was anastomosed to the lateral dorsal aspect of the periosteum of the first metatarsal with interrupted suture of 3-0 Vicryl the wound was then closed proximally and distally and a wound VAC was placed within the center of the wound for adequate drainage. We will allow the wound to demarcate and defined itself over the next 48-72 hours at which time the patient will need to be reevaluated surgically and final debridement and closure provided the patient continues to improve. This is to be considered a staged procedure. 01/05/17 12:35
[2016-12-22] MEDS ORDERED: Insulin DETEMIR 100 UNIT/ML X5UNITS SQ SCH (21:00)
[2016-12-22] MEDS: *HR* Metformin 500 MG TABLET PO SCH (21:44)
[2016-12-22] MEDS: (Lubiprostone [Amitiza] 24 MCG) PO SCH (21:48)
[2016-12-23] MEDS: Piperacillin/Tazobactam 3.375 GM in D5% in Water (Mini-Bag+) 100 ML IVPB SCH ×4 (00:10→23:51)
[2016-12-23] MEDS: Ipratropium/Albuterol Neb 3 ML IH SCH ×4 (03:07→21:53)
[2016-12-23] MEDS: *HR* OxyCODONE/APAP 10/325 TABLET PO PRN ×5 (03:23→23:50)
[2016-12-23] MEDS: 0.9 % Sodium Chloride w KCl 20 MEQ/1,000 ML MLS IVC SCH ×4 (03:24→23:54)
[2016-12-23 04:35] LABS: Basophils # 0.1 K/mcL (0.0-0.2); Basophils % 0.4 %; Eosinophils # 0.1 K/mcL (0.0-0.6); Eosinophils % 0.5 %; Hematocrit 37.1 % (35.3-44.9); Immature Granulocytes % 1.8 % (0-4); Lymphocytes % 11.3 %; Mean Corpuscular HGB Conc 32.3 g/dL (31.6-35.5); Mean Corpuscular Hemoglobin 28.1 pg (28.0-33.3); Mean Corpuscular Volume 86.9 fL (83.0-100.0); Mean Platelet Volume 10.2 fL (9.4-12.4); Monocytes # 0.9 K/mcL (0.0-1.3); Monocytes % 5.1 %; Neutrophils # 14.5 K/mcL (1.6-8.9); Platelet Count 384 K/mcL (140-400); Red Blood Count 4.27 M/mcL (3.82-4.97); Red Cell Distribution Width 12.8 % (11.5-14.5); Segmented Neutrophils % 80.9 %
[2016-12-23 04:49] LABS: BUN/Creatinine Ratio 19 (6-26); Blood Urea Nitrogen 16 mg/dL (7-20); Calcium 9.4 mg/dL (8.6-10.8); Carbon Dioxide 27 mEq/L (19-29); Chloride 91 mEq/L (98-109); Glucose 279 mg/dL (70-99); Osmolality,Calculated 283 (280-300); Potassium 3.7 mEq/L (3.5-4.5); Sodium 131 mEq/L (136-145); eGFR For African Americans > 60 (> 60); eGFR For Non-African Americans > 60 (> 60)
[2016-12-23] MEDS: *HR* Enoxaparin 40 MG/0.4 ML SYRINGE SQ SCH (05:15)
[2016-12-23] MEDS: Vancomycin 1,250 MG in D5% in Water 250 ML IVPB SCH ×3 (05:15→19:39)
[2016-12-23] MEDS ORDERED: *HR* Metformin 500 MG TABLET PO SCH (08:00)
[2016-12-23] MEDS: hydroCHLOROthiazide 25 MG TABLET PO SCH (08:24)
[2016-12-23] MEDS: Gabapentin 300 MG CAPSULE PO SCH ×5 (08:25→22:32)
[2016-12-23] MEDS: tiZANidine 4 MG TABLET PO SCH ×2 (08:26→22:32)
[2016-12-23] MEDS: *HR* Metformin 500 MG TABLET PO SCH ×2 (08:26→16:42)
[2016-12-23] MEDS: cloNIDine HCl 0.1 MG TABLET PO SCH ×2 (08:26→22:32)
[2016-12-23] MEDS: Loratadine 10 MG TABLET PO SCH (08:28)
[2016-12-23] MEDS: Insulin DETEMIR 100 UNIT/ML X5UNITS SQ SCH ×2 (08:29→22:47)
[2016-12-23] MEDS: Methocarbamol 500 MG TABLET PO SCH (08:29)
[2016-12-23] MEDS: (Lubiprostone [Amitiza] 24 MCG) PO SCH ×2 (08:30→22:33)
[2016-12-23] MEDS ORDERED: Aminoglycoside Consult 1 EACH MC ONE (09:32)
--- NOTE | 2016-12-23 14:07 | Podiatry Progress Note ---
Date of Encounter: 12/23/16 Time of Encounter: 12:15 - Assessment and Plan (1) Osteomyelitis of toe of right foot Current Visit: Yes Status: Suspected Patient is s/p incision and drainage to bone for osteomyelitis, amputation of right great toe, adjacent tissue transfer and placement of wound VAC by Dr. Alexander on 12/22/16. Incision line evaluated yesterday, well approximated, no complications. Wound vac intact, 25 mls of blood drainage observed to canister. Dressing is dry and intact today. WBC: 18.0 and a febrile. Wound cultures of right foot isolated Strep agalactiae (Group B), intraop cultures are pending. Dr. Alexander to reevaluate wound tomorrow, patient may need go back to surgery this 12/25/16 for a secondary closure based on clinical picture. Receiving IV Vancomycin and Zosyn. Remain protective weight bearing to right foot, no weight to be applied to right forefoot. (2) Cellulitis of foot, right Current Visit: Yes Status: Acute (3) Type 2 diabetes mellitus Current Visit: Yes Status: Chronic Qualifiers: Diabetes mellitus complication status: without complication Diabetes mellitus chcf insulin use: with chcf use Qualified Code(s): E11.9 - Type 2 diabetes mellitus without complications; Z79.4 - oysterman (current) use of insulin (4) Sepsis Current Visit: Yes Status: Acute Qualifiers: Sepsis type: sepsis due to unspecified organism Qualified Code(s): A41.9 - Sepsis, unspecified organism Subjective Interval history: Patient is s/p incision and drainage to bone for osteomyelitis, amputation of right great toe, adjacent tissue transfer and placement of wound VAC by Dr. Alexander on 12/22/16. Patient is lying in bed with wound vac intact. 25mls of blood drainage observed to canister. Dressing was changed yesterday due to concerns of bleeding after patient was ambulating to restroom. No active bleeding upon inspection of incision line, well approximated. No c/o fever or chills overnight. Objective - Vital Signs Vital Signs: Vital Signs Temp Pulse Resp BP Pulse Ox 12/23/16 10:57 98.5 F 80 18 90/56 95 12/23/16 07:28 98.7 F 86 20 103/69 93 12/23/16 03:38 98.7 F 101 15 104/70 97 12/22/16 19:09 98.6 F 97 15 114/68 95 12/22/16 17:45 98.9 F 100 18 153/83 98 12/22/16 16:45 98.4 F 90 18 146/68 95 12/22/16 15:45 97.5 F L 84 18 130/83 98 12/22/16 15:15 97.9 F 82 18 108/63 97 12/22/16 14:45 98.2 F 76 16 99/57 100 Intake and Output 12/22/16 12/23/16 12/23/16 23:59 07:59 15:59 Intake Total 350 / 350 1100 / 1100 1709 / 1709 Output Total 25 / 25 0 / 0 0 / 0 Balance 325 / 325 1100 / 1100 1709 / 1709 Intake: IV Fluids 350 / 350 1100 / 1100 909 / 909 KCl 20 mEq in 0.9% Sodium 1000 / 1000 809 / 809 Chloride 20 meq In 1,000 ml @ 100 mls/hr IVC . Q10H [facility] Rx#:[id number] Zosyn 3.375 GM In 100 / 100 100 / 100 100 / 100 Dextrose 5% (Minibag+) 100 ML 100 ML @ 25 mls/hr IVPB Q8HR [facility] Rx#: [id number] Vancocin 1,250 MG In 250 / 250 Dextrose 5% 250 ML @ 166. 667 mls/hr IVPB Q12H [facility] Rx#:[id number] Oral 0 / 0 0 / 0 Free Water 800 / 800 Output: Wound Drainage 25 / 25 0 / 0 0 / 0 Right Toe 25 / 25 0 / 0 0 / 0 Other: # Voids 1 3 1 Weight 80.6 kg Blood Glucose* 393 308 324 Patient Weight 12/23/16 23:59 Weight 80.6 kg - Exam Exam: General appearance: alert awake oriented X 3. Calm and pleasant, no acute distress.. Vascular: Pedal pulses +2/4 DP/PT , No evidence of cyanosis, pallor or rubor, Edema graded at 1+/4, Skin Tempature warm, No calf pain with manual compression. capillary refill time is immediate to digits. Neurologic: Sensation intact with light touch to foot. . Post op: Dressing dry and intact, wound vac intact with 25 mls of bloody drainage observed to canister. - Lab Result Diagrams: 12/23/16 03:17 12/23/16 03:17 Labs: Abnormal lab results WBC 18.0 K/mcL (4.3-11.1) H 12/23/16 03:17 Neutrophils # 14.5 K/mcL (1.6-8.9) H 12/23/16 03:17 ESR >= 130 mm/hr (0-15) H 12/21/16 08:49 Sodium 131 mEq/L (136-145) L 12/23/16 03:17 Chloride 91 mEq/L (98-109) L 12/23/16 03:17 Glucose 279 mg/dL (70-99) H 12/23/16 03:17 POC Glucose 324 (58-89) H 12/23/16 10:52 Hemoglobin A1c 12.1 % (-5.6) H 12/21/16 05:06 C-Reactive Protein 351 mg/L (Less than 5) H 12/21/16 08:49 Albumin 2.4 g/dL (3.5-5.0) L 12/21/16 05:06 Globulin 5.8 g/dL (2.4-3.5) H 12/21/16 05:06 Albumin/Globulin Ratio 0.4 (1.1-2.2) L 12/21/16 05:06 Microbiology, Last 48 Hours 12/21/16 05:06 Blood Culture - Preliminary Peripheral Venipuncture No growth. 12/21/16 05:06 Blood Culture - Preliminary Peripheral Venipuncture No growth. - VTE Documentation of Mechanical Device: Intermittent pneumatic compression device Consult Discharge Plan - Plan Referrals: Andrea Boland MD [Primary Care Provider] -
--- NOTE | 2016-12-23 16:16 | Internal Med Progress Note ---
Date of Encounter: 12/23/16 Time of Encounter: 14:30 - Assessment and plan (1) Sepsis Current Visit: Yes Status: Acute Assessment and plan: From right great toe infection and cellulitis. Continue IV antibiotics. Wound culture growing group B streptococcus. We will consult infectious disease for antibiotic recommendations. Leukocytosis persists with WBC of 18. Moderate risk for complications. Qualifiers: Sepsis type: sepsis due to unspecified organism Qualified Code(s): A41.9 - Sepsis, unspecified organism (2) Osteomyelitis of toe of right foot Current Visit: Yes Status: Suspected Assessment and plan: Awaiting intraoperative wound cultures. Continue IV antibiotics. (3) Cellulitis of foot, right Current Visit: Yes Status: Acute Assessment and plan: Keep leg elevated. Pain control. Clinically improving (4) Type 2 diabetes mellitus Current Visit: Yes Status: Chronic Assessment and plan: Uncontrolled. Discussed about insulin regimen with patient. We will also have the pharmacist occupations about insulin and its side effects and other medications that would be appropriate for the patient . For now on long-acting insulin. will increase dosage to attempt to control blood sugars better. But without pre-meal insulin coverage, this would be very difficult Qualifiers: Diabetes mellitus complication status: without complication Diabetes mellitus long term acute care registered nurse insulin use: with long term acute care registered nurse use Qualified Code(s): E11.9 - Type 2 diabetes mellitus without complications; Z79.4 - assisted (current) use of insulin (5) Hypertension Current Visit: Yes Status: Chronic Assessment and plan: Well-controlled Qualifiers: Hypertension type: essential hypertension Qualified Code(s): I10 - Essential (primary) hypertension (6) Tobacco abuse Current Visit: Yes Status: Acute (7) DVT prophylaxis Current Visit: Yes Status: Acute Assessment and plan: On subcutaneous Lovenox - Subjective Interval history: Patient is doing better today. Pain is better controlled. She has refused pre- meal insulin yesterday and I have discussed this with her. She is concerned about weight gain with the meal insulin. I suggested that she be given pre- meal insulin only while she is here and then to follow up with her primary care provider about starting different medication to control her blood sugars better as her A1c is 12%. She expressed agreement. No fever or chills overnight. No nausea or vomiting. Underwent surgery yesterday with incision and drainage, amputation of right great toe. Tolerated procedure well. - Constitutional Vitals: Temp Pulse Resp BP Pulse Ox 97.4 F L 93 17 112/74 99 12/23/16 14:56 12/23/16 14:56 12/23/16 14:56 12/23/16 14:56 12/23/16 14:56 General appearance: Present: cooperative, mild distress, A&O X 3, answers questions appropriately - Respiratory Respiratory exam: Present: CTAB. Absent: accessory muscle use, rales, rhonchi, wheezes - Cardiovascular Cardiovascular exam: Present: RRR, +S1, +S2. Absent: diastolic murmur, gallop, rubs, systolic murmur - GI/Abdominal GI/Abdominal exam: Present: normal bowel sounds, soft, no peritoneal signs. Absent: distended, tenderness - Extremities Exam Extremities exam: Present: warm, radial pulses palpable and symmetrical. Absent : calf tenderness, cyanotic, pedal edema Additional comments: Right foot currently bandaged. Tender to palpation. Internal Medicine: Result - Labs CBC & Chem 7: 12/23/16 03:17 12/23/16 03:17 Labs: Short CBC 12/23/16 Range/Units 03:17 WBC 18.0 H (4.3-11.1) K/mcL Hgb 12.0 (11.5-15.4) g/dL Hct 37.1 (35.3-44.9) % Plt Count 384 (140-400) K/mcL Neutrophils # 14.5 H (1.6-8.9) K/mcL BMP 12/23/16 03:17 Sodium 131 L Potassium 3.7 Chloride 91 L Carbon Dioxide 27 BUN 16 Creatinine 0.85 Glucose 279 H Calcium 9.4 - ABG Interpretation ABG results: PT/INR, D-dimer PT 11.9 Seconds (9.4-12.1) 12/21/16 05:06 - VTE Documentation of Mechanical Device: Intermittent pneumatic compression device Consult Discharge Plan - Plan Referrals: Andrea Boland MD [Primary Care Provider] -
[2016-12-23] MEDS: Insulin LISPRO 300 UNITS/3 ML VIAL SQ SCH ×2 (19:39)
[2016-12-24] MEDS: Insulin DETEMIR 100 UNIT/ML X5UNITS SQ SCH ×2 (00:31→19:57)
[2016-12-24] MEDS: 0.9 % Sodium Chloride w KCl 20 MEQ/1,000 ML MLS IVC SCH (03:30)
[2016-12-24] MEDS: Vancomycin 1,250 MG in D5% in Water 250 ML IVPB SCH (03:59)
[2016-12-24] MEDS: *HR* OxyCODONE/APAP 10/325 TABLET PO PRN ×4 (03:59→18:08)
[2016-12-24] MEDS: Ipratropium/Albuterol Neb 3 ML IH SCH ×4 (04:16→21:26)
[2016-12-24 04:59] LABS: Basophils # 0.1 K/mcL (0.0-0.2); Basophils % 0.6 %; Eosinophils # 0.3 K/mcL (0.0-0.6); Eosinophils % 1.7 %; Hematocrit 35.7 % (35.3-44.9); Hemoglobin 11.4 g/dL (11.5-15.4); Immature Granulocytes % 3.4 % (0-4); Lymphocytes # 2.3 K/mcL (0.6-4.6); Lymphocytes % 15.8 %; Mean Corpuscular HGB Conc 31.9 g/dL (31.6-35.5); Mean Corpuscular Hemoglobin 28.1 pg (28.0-33.3); Mean Corpuscular Volume 88.1 fL (83.0-100.0); Mean Platelet Volume 9.9 fL (9.4-12.4); Monocytes # 0.8 K/mcL (0.0-1.3); Monocytes % 5.1 %; Neutrophils # 10.8 K/mcL (1.6-8.9); Platelet Count 339 K/mcL (140-400); Red Blood Count 4.05 M/mcL (3.82-4.97); Red Cell Distribution Width 12.7 % (11.5-14.5); Segmented Neutrophils % 73.4 %
[2016-12-24 05:14] LABS: BUN/Creatinine Ratio 12 (6-26); Blood Urea Nitrogen 8 mg/dL (7-20); Calcium 9.1 mg/dL (8.6-10.8); Carbon Dioxide 28 mEq/L (19-29); Chloride 99 mEq/L (98-109); Glucose 161 mg/dL (70-99); Osmolality,Calculated 286 (280-300); Potassium 3.7 mEq/L (3.5-4.5); Sodium 137 mEq/L (136-145); eGFR For African Americans > 60 (> 60); eGFR For Non-African Americans > 60 (> 60)
[2016-12-24] MEDS: *HR* Enoxaparin 40 MG/0.4 ML SYRINGE SQ SCH (06:34)
[2016-12-24] MEDS: Gabapentin 300 MG CAPSULE PO SCH ×4 (07:48→19:53)
[2016-12-24] MEDS: hydroCHLOROthiazide 25 MG TABLET PO SCH (07:48)
[2016-12-24] MEDS: cloNIDine HCl 0.1 MG TABLET PO SCH ×2 (07:49→19:52)
[2016-12-24] MEDS: Loratadine 10 MG TABLET PO SCH (07:49)
[2016-12-24] MEDS: tiZANidine 4 MG TABLET PO SCH ×2 (07:51→19:53)
[2016-12-24] MEDS: Piperacillin/Tazobactam 3.375 GM in D5% in Water (Mini-Bag+) 100 ML IVPB SCH (07:53)
[2016-12-24] MEDS: *HR* Metformin 500 MG TABLET PO SCH ×2 (07:54→18:08)
[2016-12-24] MEDS: Methocarbamol 500 MG TABLET PO SCH (07:55)
--- NOTE | 2016-12-24 09:47 | Internal Med Progress Note ---
<Sidney Herzog - Last Filed: 12/24/16 09:43> Date of Encounter: 12/24/16 Time of Encounter: 09:43 - Assessment and plan (1) Osteomyelitis of toe of right foot Current Visit: Yes Status: Suspected Assessment and plan: Patient is status post amputation of right great toe secondary to osteomyelitis - Wound cultures grew group B strep - Blood cultures no growth - Initial foot x-ray demonstrates soft tissue involvement but could not rule out osteomyelitis - Initial CRP was 351, ESR greater than 130 - Leukocytosis improving since admission - Podiatry involved in patient's care, possible return to surgery for closure on 12/25/2016 Plan: - Continue wound care - Continue pain management - Discontinue vancomycin and Zosyn - Start Ancef 2000 mg every 8 hours - Continue to monitor renal function (2) Type 2 diabetes mellitus Current Visit: Yes Status: Chronic Assessment and plan: Uncontrolled. Hemoglobin A1c of 12.1 at admission - Patient refuses to go off metformin during inpatient stay Plan: - Continue metformin 1000 mg twice a day - Renal function stable, continue to monitor closely - Continue Levemir at 35 units twice a day Qualifiers: Diabetes mellitus complication status: without complication Diabetes mellitus residential insulin use: with continuous churn buttermaker use Qualified Code(s): E11.9 - Type 2 diabetes mellitus without complications; Z79.4 - termite technician (current) use of insulin (3) Sepsis Current Visit: Yes Status: Acute Assessment and plan: Improving. From right great toe infection and cellulitis. Continue IV antibiotics. Wound culture growing group B streptococcus. We will consult infectious disease for antibiotic recommendations. Leukocytosis improving. Moderate risk for complications with uncontrolled diabetes. Qualifiers: Sepsis type: sepsis due to unspecified organism Qualified Code(s): A41.9 - Sepsis, unspecified organism (4) Hypertension Current Visit: Yes Status: Chronic Assessment and plan: Well-controlled. Plan: - Continue clonidine 0.3 mg by mouth twice a day - HCTZ 50 mg by mouth daily - Cozaar 100 mg daily - Spironolactone 50 mg by mouth daily Qualifiers: Hypertension type: essential hypertension Qualified Code(s): I10 - Essential (primary) hypertension (5) Tobacco abuse Current Visit: Yes Status: Acute Assessment and plan: Patient is a current smoker, would benefit from smoking cessation - Smoking cessation discussed (6) DVT prophylaxis Current Visit: Yes Status: Acute Assessment and plan: On subcutaneous Lovenox - Subjective Interval history: Mrs. Peres 46-year-old female since seen and evaluated patient bedside this morning. She states that she is tired and has some mild pain of her right foot. She states that she tolerated her surgical procedure well and is tolerating the wound VAC. She does not wish to go home on the wound VAC and hopes to go back to surgery tomorrow and complete closure and removal of the device. She denies any fevers, chills, shortness of breath, chest pain palpitations, abdominal pains nausea vomiting diarrhea constipation. With regards to her diabetes she wants to stay on her metformin but does wish to go home on Levemir as it has improved her glucoses. She says she has quit smoking since she is admitted to the hospital not smoking currently and says she does not have a smoking addiction but only likes the taste of the menthol. She has had a bowel movement since her procedure, tolerating oral intake and wishes to take a shower possible. - Constitutional Vitals: Temp Pulse Resp BP Pulse Ox 98.0 F 81 18 122/80 97 12/24/16 07:49 12/24/16 07:49 12/24/16 07:49 12/24/16 07:49 12/24/16 07:49 General appearance: Present: cooperative, mild distress, A&O X 3, answers questions appropriately Exam: General: Patient alert, awake, oriented 3, interactive, in no acute distress HEENT: Normocephalic, atraumatic, pupils equal reactive to light, nasal cavity patent and open septum median position, oral mucosa moist, poor dentition, uvula midline, neck supple trachea midline no palpable lymphadenopathy, no thyromegaly. Chest: Symmetric bilateral correlating with respiratory effort, effort nonlabored. Cardiac: Regular rate and rhythm, positive S1, S2, no bruits appreciated bilateral carotids, Radial pulses 2+ bilateral, posterior tibial and dorsal pedal pulses 2+ bilateral. Respiratory: Diffuse inspiratory and expiratory wheezing with left lower lung base rhonchi with inspiratory effort Abdomen: Soft, nontender, positive bowel sounds, no palpable masses appreciated on examination Extremities: Symmetric bilateral, no erythema or edema, patient moving all 4 extremities spontaneously. Surgical scar at site of amputation of the left fourth toe, right foot bandage with wound VAC status post amputation of right great toe Neurologic: No focal deficits appreciated on examination. Face symmetric, muscle strength symmetric bilateral upper and lower extremities. Internal Medicine: Result - Labs CBC & Chem 7: 12/24/16 04:26 12/24/16 04:26 Labs: Short CBC 12/24/16 Range/Units 04:26 WBC 14.7 H (4.3-11.1) K/mcL Hgb 11.4 L (11.5-15.4) g/dL Hct 35.7 (35.3-44.9) % Plt Count 339 (140-400) K/mcL Neutrophils # 10.8 H (1.6-8.9) K/mcL BMP 12/24/16 04:26 Sodium 137 Potassium 3.7 Chloride 99 Carbon Dioxide 28 BUN 8 Creatinine 0.67 Glucose 161 H Calcium 9.1 - ABG Interpretation ABG results: PT/INR, D-dimer PT 11.9 Seconds (9.4-12.1) 12/21/16 05:06 - VTE Documentation of Mechanical Device: Intermittent pneumatic compression device Consult Discharge Plan - Plan Referrals: Andrea Boland MD [Primary Care Provider] - <Jesus Wayne - Last Filed: 12/24/16 14:11> Date of Encounter: 12/24/16 - Constitutional Vitals: Temp Pulse Resp BP Pulse Ox 97.3 F L 74 18 101/65 96 12/24/16 11:37 12/24/16 11:37 12/24/16 11:37 12/24/16 11:37 12/24/16 11:37 Internal Medicine: Result - Labs CBC & Chem 7: 12/24/16 04:26 12/24/16 04:26 Labs: Short CBC 12/24/16 Range/Units 04:26 WBC 14.7 H (4.3-11.1) K/mcL Hgb 11.4 L (11.5-15.4) g/dL Hct 35.7 (35.3-44.9) % Plt Count 339 (140-400) K/mcL Neutrophils # 10.8 H (1.6-8.9) K/mcL BMP 12/24/16 04:26 Sodium 137 Potassium 3.7 Chloride 99 Carbon Dioxide 28 BUN 8 Creatinine 0.67 Glucose 161 H Calcium 9.1 - ABG Interpretation ABG results: PT/INR, D-dimer PT 11.9 Seconds (9.4-12.1) 12/21/16 05:06 - Attending Attestation I have independently seen and examined this patient, reviewed the EMR and discussed plan of care with the patient and resident physician 46 F with PMH of Uncontrolled Complicated DM, with A1C of 12%, HTN, Tobacco abuse admitted for management of Sepsis secondary to R big toe cellulitis with osteomyelitis, she is s/p R big toe amputation POD day 2 Wound culture is growing strep agalacatiae She is seen and evaluated at bedside, and has no complains Her FS has been uncontrolled, patient continues to refuse prandial insulin but accepts levemir Her renal function is stable Physical exam: VSS, afebrile, Neuro: normal gait, no deficits, abdomen is soft and benign, chest is clear, HS S1, S2 only, extremities: R foot dressing slightly soaked around the big toe stump with wound vac insitu Labs and Imaging reviewed Agree with discontinuation of Vanco/Zosyn, drug of choice for strep is agalactiase is penicillin, agree with cefazolin, continue levemir, monitor FS, discontinue IVF with potassium supplement, chem is WNL. Podiatry is following and patient is for op tomorrow 12/25 Continue other management, continue to monitor renal function, patient is on multiple diuretics for HTN
[2016-12-24] MEDS: (Lubiprostone [Amitiza] 24 MCG) PO SCH ×2 (12:24→19:53)
--- NOTE | 2016-12-24 15:39 | Infectious Disease Consult ---
Date of Encounter: 12/24/16 Time of Encounter: 15:35 Assessment and Plan (1) Sepsis Status: Acute Assessment and plan: The patient had two SIRS criteria on admission. Secondary to right foot cellulitis/OM. Improved. WBC trending down. Tachycardia has improved. Blood cultures drawn 12/21/16 x 2 sets are NGTD. Qualifiers: Sepsis type: sepsis due to unspecified organism Qualified Code(s): A41.9 - Sepsis, unspecified organism (2) Osteomyelitis of toe of right foot Status: Suspected Assessment and plan: Location: Right great toe. Causative organism GBS. Secondary to diabetic foot ulcer. X-ray negative for OM, but intra-operative findings and labs concerning for OM. ESR >130, CRP 351. Podiatry consulted. Status post I & D for OM, right great toe amputation, and tissue transfer with wound VAC application 12/22/[address] Alexander. Operative report reviewed. Intra-op cultures grew GBS. Discontinue cefazolin. Start Rocephin 2 grams IV daily. Duration of treatment depends on the clinical picture, but likely 6 weeks of IV antibiotics. Continue wound care and activity restrictions as outlined by the primary team. Consult social sciences professor to assist with discharge planning. (3) Cellulitis of foot, right Status: Acute Assessment and plan: Location: Right foot. Causative organism likely GBS. Improved. Continue antibiotics as above. (4) Hypertension Status: Chronic Qualifiers: Hypertension type: essential hypertension Qualified Code(s): I10 - Essential (primary) hypertension (5) Tobacco abuse Status: Acute (6) Type 2 diabetes mellitus Status: Chronic Assessment and plan: Uncontrolled. HgbA1C 12%. Recommend aggressive glucose monitoring and control to promote wound healing and prevent re-infection. Management per the primary team. Qualifiers: Diabetes mellitus complication status: without complication Diabetes mellitus fci insulin use: with fci use Qualified Code(s): E11.9 - Type 2 diabetes mellitus without complications; Z79.4 - terminal clerk (current) use of insulin Infectious Disease HPI - Data of Consult Patient: new to practice Consult date: 12/24/16 Requesting Physician: Jesus Wayne MD Primary Care Provider: Andrea Boland MD - Consult Narrative Reason for consult: Right foot OM History of present illness: Ms. Peres is a 46 year old female past medical history of hypertension, uncontrolled diabetes, tobacco abuse, asthma, fibromyalgia, lipidemia. The patient was admitted to the hospital December 21 for right great toe infection. We are consulted December 24 for further evaluation and treatment recommendations agree also colitis of the right foot. A 46-year-old female past medical history as stated above. The patient states that approximately 10 days ago she noticed an ulcer to the plantar aspect of her right great toe. She states she began to have worsening swelling and pain to the point where she can't wear shoe. She presented to [facility] urgent care which then subsequent transferred her here. She reported subjective fevers and chills and nausea. Upon arrival, patient was tachycardic and had a white blood cell count of 18.6 thousand. Lipitor studies revealed an ESR greater than 130 and a CRP of 351. Her hemoglobin A1c was elevated at 12.1. Blood cultures were obtained 2 sets are no growth to date. A right foot x-ray was negative for ostomy myelitis. The patient was started on empiric IV antibiotics and admitted to the hospital for further evaluation and treatment. Admission, the patient has been evaluated by podiatry. The patient was taken to the operating room on December 22 and underwent an I&D for ostomy myelitis, right great toe amputation, tissue transfer, and wound VAC application. Review of the operative note reveals concern for ostomy myelitis. Intraoperative cultures were obtained were positive for group B strep. Currently, the patient is on IV cefazolin. We've asked to evaluate and make further recommendations. During my exam today, the patient endorses a history as stated above. She reports subjective fevers and chills at home, but states these improved since admission. She denies any headache or neck pain. She denies any congestion, earache, or sore throat. She reports chronic nausea, but no vomiting, diarrhea, or constipation. She denies abdominal pain or appetite changes. She reports pain in the right foot at the surgical site that is unchanged since surgery. She reports that there were some swelling and redness to the foot as well, but denies any streaking up the leg or pain in any of her other extremities. She is unsure how she sustained an ulcer to the bottom of the toe. She denies any oral thrush or any other skin lesions. CC: Jesus Wayne MD Past Med Surg Social Fam HX - Past Medical History Attestation: Yes The following information was validated with the patient. Source: patient, old records reviewed, nursing notes reviewed Medical history: arthritis, asthma, diabetes, fibromyalgia, hyperlipidemia, hypertension, migraine, other Psychiatric history: anxiety, depression - Past Surgical History Surgical History: cholecystectomy, orthopedic, other, sinus surgery, other - Social History Smoking Status: Current every day smoker Packs per day: 2 Smokeless Tobacco Status: No Alcohol use: rarely Drug use: none Occupational status: unemployed Current living situation: Home, With Family Activity Level: Independent ambulation Recent Out of Country Travel Within the Last 8 Weeks: No Exposure or Possible Exposure to Illness During Travel: No - Family History Mother History Unknown: Yes Family Member Ethnicity: Non- Living Status: Still Living Hx Family Cardiac Disorders: Yes (triple bypass) Hx Family Respiratory Disorders: Yes (asthma) Hx Family Cancer: No Hx Family GI Disorders: No Hx Family Genitourinary Disorders: No Hx Family Endocrine Disorder: No Hx Family Musculoskeletal Disorders: No Hx Family Neuromuscular Disorders: No Hx Family Neurologic Disorders: No Hx Family HEENT Disorders: No Hx Family Autoimmune Disorders: No Hx Family Reproductive Disorders: No Hx Family Psychosocial Disorders: No Hx Family Medical Disorders: No Father Living Status: Age at : 59 Hx Family Cardiac Disorders: No Hx Family Respiratory Disorders: No Hx Family Cancer: Yes (bladder cancer) Hx Family GI Disorders: No Hx Family Genitourinary Disorders: No Hx Family Endocrine Disorder: No Hx Family Musculoskeletal Disorders: No Hx Family Neuromuscular Disorders: No Hx Family Neurologic Disorders: No Hx Family HEENT Disorders: No Hx Family Autoimmune Disorders: No Hx Family Reproductive Disorders: No Hx Family Psychosocial Disorders: No Hx Family Medical Disorders: No Infectious Disease-CN:Meds Albuterol Sulfate [Proair HFA] 1 puff IH PRN PRN 12/05/14 [History] Albuterol Sulfate [Proair HFA] 1 puff IH PRN PRN 12/05/14 [History] CloNIDine HCl 0.3 mg PO BID 12/05/14 [History] DiphenhydraMINE [Benadryl] 25 mg PO HS 12/05/14 [History] Duloxetine HCl [Cymbalta] 90 mg PO DAILY 12/05/14 [History] Folic Acid 1 mg PO DAILY 12/05/14 [History] Gabapentin [Neurontin] 600 mg PO QID 12/05/14 [History] Loratadine [Claritin] 10 mg PO DAILY 12/05/14 [History] Losartan Potassium [Cozaar] 100 mg PO DAILY 12/05/14 [History] Lubiprostone [Amitiza] 24 mcg PO BID 12/05/14 [History] Metformin HCl [Glucophage] 1,000 mg PO BID 12/05/14 [History] Methocarbamol [Robaxin] 500 mg PO DAILY 12/05/14 [History] Mometasone/Formoterol [Dulera 200 Mcg/5 Mcg Inhaler] 8.8 gm IH BID 12/05/14 [ History] Montelukast [Singulair] 10 mg PO DAILY 12/05/14 [History] Oxycodone HCl/Acetaminophen [Percocet 10-325 mg Tablet] 1 each PO Q4HR 12/05/14 [History] Promethazine [Phenergan] 25 mg PO Q6HR PRN #20 tablet 12/05/14 [Rx] Spironolactone [Aldactone] 50 mg PO DAILY 12/05/14 [History] Vitamin E 400 unit PO DAILY 12/05/14 [History] hydroCHLOROthiazide [Hydrochlorothiazide] 50 mg PO DAILY 12/05/14 [History] tiZANidine [Zanaflex] 4 mg PO BID 12/05/14 [History] OxyCODONE/APAP 5/325 [Percocet 5/325 MG] 1 each PO Q6HR PRN #10 tablet 10/31/15 [Rx] 3 Allergy/AdvReac Type Severity Reaction Status Date / Time acetaminophen [From Midrin] Allergy Unknown unknown Verified 12/05/14 18:26 amitriptyline Allergy Unknown unknown Verified 12/05/14 18:26 ciprofloxacin Allergy Unknown unknown Verified 12/05/14 18:26 codeine Allergy Unknown unknown Verified 12/05/14 18:26 daptomycin [From Cubicin] Allergy Unknown unkknown Verified 12/05/14 18:26 dichloralphenazone Allergy Unknown unknown Verified 12/05/14 18:26 [From Midrin] Hydromorphone [From Dilaudid] Allergy Unknown unknown Verified 12/05/14 18:26 ibuprofen Allergy Unknown unknown Verified 12/05/14 18:26 Isometheptene [From Midrin] Allergy Unknown unknown Verified 12/05/14 18:26 latex Allergy Unknown unknown Verified 12/05/14 18:26 lisinopril Allergy Unknown unknown Verified 12/05/14 18:26 morphine Allergy Unknown unknown Verified 12/05/14 18:26 nifedipine Allergy Unknown unknown Verified 12/05/14 18:26 Sulfa (Sulfonamide Allergy Unknown unknown Verified 12/05/14 18:26 Antibiotics) sulfamethoxazole Allergy Unknown unknown Verified 12/05/14 18:26 [From Bactrim] sumatriptan [From Imitrex] Allergy Unknown unknown Verified 12/05/14 18:26 trimethoprim [From Bactrim] Allergy Unknown unknown Verified 12/05/14 18:26 All systems: reviewed and no additional remarkable complaints except as stated Exam - Constitutional Vitals: Temp Pulse Resp BP Pulse Ox 98.1 F 88 18 108/69 94 12/24/16 15:00 12/24/16 15:00 12/24/16 15:00 12/24/16 15:00 12/24/16 15:00 General appearance: cooperative, no acute distress, obese - Head Head exam: Present: atraumatic, normal inspection, normocephalic - Eye Eye exam: Present: EOMI, normal appearance, PERRL Pupils: Present: normal accommodation - ENT ENT exam: Present: mucous membranes moist - Neck Neck exam: Present: normal inspection - Respiratory Respiratory exam: Present: rhonchi (scattered). Absent: rales, respiratory distress, wheezes - Cardiovascular Cardiovascular exam: Present: RRR, +S1, +S2 - GI/Abdominal GI/Abdominal exam: Present: distended (obese), normal bowel sounds, soft. Absent: tenderness - Extremities Exam Extremities exam: Present: pedal edema (1+ RLE). Absent: joint swelling, tenderness Additional comments: Surgical site noted to the distal/medial aspect of the right foot with sutures intact. Small amount of serosanguinous drainage noted on the dressing with a small amount of serous drainage actively draining from the wound. Wound VAC noted to the dorsal/medial aspect of the left foot with dressing C/D/I with sponge well-compressed. Moderate amount of serosanguinous drainage noted in the wound VAC canister. - Neurological Exam Neurological exam: Present: alert, oriented X3, no focal deficits - Psychiatric Psychiatric exam: Present: normal affect, normal mood - Skin Skin exam: Present: dry, intact, normal color, warm Infectious Disease CN: Results - Labs CBC & Chem 7: 12/24/16 04:26 12/24/16 04:26 Cultures: Cultures 12/22/16 13:15 Wound Culture - Final Right Great Toe Strep agalactiae - (Group B) 12/22/16 13:15 Wound Culture - Final Right Great Toe Strep agalactiae - (Group B) 12/21/16 05:06 Blood Culture - Preliminary Peripheral Venipuncture No growth. 12/21/16 05:06 Blood Culture - Preliminary Peripheral Venipuncture No growth. - VTE Documentation of Mechanical Device: Intermittent pneumatic compression device Consult Discharge Plan - Plan Referrals: Andrea Boland MD [Primary Care Provider] -
[2016-12-24] MEDS ORDERED: ceFAZolin 2,000 MG in D5% in Water 100 ML IVPB SCH (16:00)
--- NOTE | 2016-12-24 19:29 | Anesthesia Evaluation PreOp ---
Date of Encounter: 12/24/16 Time of Encounter: 19:27 - Past History Planned Operation: Right foot debridement and wound closure Cardiac History: HTN, Hyperlipidemia Pulmonary History: Smoker, Asthma BUDGET RECORD CLERK History: Other (migraines, chronic back pain) Other Medical History: Diabetes Type II, Other (fibromyalgia) Anesthesia History: No Prior Anesthetic Complications, Past Anesthesia ( underwent a right great toe amputation by Dr. Alexander 12-22-16 under MAC (went well )) Alcohol Use: rarely Drug use: none Medications and Allergies Albuterol Sulfate [Proair HFA] 1 puff IH PRN PRN 12/05/14 [History] Albuterol Sulfate [Proair HFA] 1 puff IH PRN PRN 12/05/14 [History] CloNIDine HCl 0.3 mg PO BID 12/05/14 [History] DiphenhydraMINE [Benadryl] 25 mg PO HS 12/05/14 [History] Duloxetine HCl [Cymbalta] 90 mg PO DAILY 12/05/14 [History] Folic Acid 1 mg PO DAILY 12/05/14 [History] Gabapentin [Neurontin] 600 mg PO QID 12/05/14 [History] Loratadine [Claritin] 10 mg PO DAILY 12/05/14 [History] Losartan Potassium [Cozaar] 100 mg PO DAILY 12/05/14 [History] Lubiprostone [Amitiza] 24 mcg PO BID 12/05/14 [History] Metformin HCl [Glucophage] 1,000 mg PO BID 12/05/14 [History] Methocarbamol [Robaxin] 500 mg PO DAILY 12/05/14 [History] Mometasone/Formoterol [Dulera 200 Mcg/5 Mcg Inhaler] 8.8 gm IH BID 12/05/14 [ History] Montelukast [Singulair] 10 mg PO DAILY 12/05/14 [History] Oxycodone HCl/Acetaminophen [Percocet 10-325 mg Tablet] 1 each PO Q4HR 12/05/14 [History] Promethazine [Phenergan] 25 mg PO Q6HR PRN #20 tablet 12/05/14 [Rx] Spironolactone [Aldactone] 50 mg PO DAILY 12/05/14 [History] Vitamin E 400 unit PO DAILY 12/05/14 [History] hydroCHLOROthiazide [Hydrochlorothiazide] 50 mg PO DAILY 12/05/14 [History] tiZANidine [Zanaflex] 4 mg PO BID 12/05/14 [History] OxyCODONE/APAP 5/325 [Percocet 5/325 MG] 1 each PO Q6HR PRN #10 tablet 10/31/15 [Rx] 3 Allergy/AdvReac Type Severity Reaction Status Date / Time acetaminophen [From Midrin] Allergy Unknown unknown Verified 12/05/14 18:26 amitriptyline Allergy Unknown unknown Verified 12/05/14 18:26 ciprofloxacin Allergy Unknown unknown Verified 12/05/14 18:26 codeine Allergy Unknown unknown Verified 12/05/14 18:26 daptomycin [From Cubicin] Allergy Unknown unkknown Verified 12/05/14 18:26 dichloralphenazone Allergy Unknown unknown Verified 12/05/14 18:26 [From Midrin] Hydromorphone [From Dilaudid] Allergy Unknown unknown Verified 12/05/14 18:26 ibuprofen Allergy Unknown unknown Verified 12/05/14 18:26 Isometheptene [From Midrin] Allergy Unknown unknown Verified 12/05/14 18:26 latex Allergy Unknown unknown Verified 12/05/14 18:26 lisinopril Allergy Unknown unknown Verified 12/05/14 18:26 morphine Allergy Unknown unknown Verified 12/05/14 18:26 nifedipine Allergy Unknown unknown Verified 12/05/14 18:26 Sulfa (Sulfonamide Allergy Unknown unknown Verified 12/05/14 18:26 Antibiotics) sulfamethoxazole Allergy Unknown unknown Verified 12/05/14 18:26 [From Bactrim] sumatriptan [From Imitrex] Allergy Unknown unknown Verified 12/05/14 18:26 trimethoprim [From Bactrim] Allergy Unknown unknown Verified 12/05/14 18:26 - Meds/Allergy Pre-op Review Medications Reviewed: Yes Allergies Reviewed: Yes Beta Blockers on Current Med List: No Anesthesia Results - Labs 12/24/16 04:26 12/24/16 04:26 - Imaging EKG: report reviewed, image reviewed (SR) Anesthesia Exam Last Vital Signs Temp 98.1 F 12/24/16 15:00 Pulse 88 12/24/16 15:00 Resp 18 12/24/16 15:00 BP 108/69 12/24/16 15:00 Pulse Ox 94 12/24/16 15:00 Weight: 81 kg - HEENT Pupil (Motor): Pupils equal, EOMI Mallampati: III Teeth: Missing, Poor dentition Oral Opening: Greater than 3 - BUDGET RECORD CLERK LOC: Oriented BUDGET RECORD CLERK Motor: Normal RUE, Normal LUE, Normal RLE, Normal LLE, Normal Face - Cardiac Rhythm: Regular Murmur: None - Pulmonary Breath Sounds: bilateral Clear Respiratory Effort: Symmetrical Anesthesia Assess/Plan ASA Score: 3 Modified Christelle Scale for Level of Consciousness: Cooperative, oriented, and tranquil Anesthetic Plan: MAC Monitoring Plan: Standard Monitors Recovery Plan: PACU
[2016-12-25] MEDS: *HR* OxyCODONE/APAP 10/325 TABLET PO PRN ×4 (00:26→19:24)
[2016-12-25] MEDS: Ipratropium/Albuterol Neb 3 ML IH SCH ×4 (03:16→21:20)
[2016-12-25 05:13] LABS: Basophils # 0.1 K/mcL (0.0-0.2); Basophils % 0.5 %; Eosinophils # 0.2 K/mcL (0.0-0.6); Eosinophils % 1.6 %; Hematocrit 34.6 % (35.3-44.9); Immature Granulocytes % 4.3 % (0-4); Lymphocytes # 2.2 K/mcL (0.6-4.6); Lymphocytes % 16.2 %; Mean Corpuscular HGB Conc 31.8 g/dL (31.6-35.5); Mean Corpuscular Hemoglobin 27.9 pg (28.0-33.3); Mean Corpuscular Volume 87.8 fL (83.0-100.0); Mean Platelet Volume 10.2 fL (9.4-12.4); Monocytes # 0.6 K/mcL (0.0-1.3); Monocytes % 4.4 %; Platelet Count 356 K/mcL (140-400); Red Blood Count 3.94 M/mcL (3.82-4.97); Red Cell Distribution Width 12.4 % (11.5-14.5)
[2016-12-25] MEDS: *HR* Enoxaparin 40 MG/0.4 ML SYRINGE SQ SCH (05:18)
[2016-12-25 05:30] LABS: Alanine Aminotransferase 7 Units/L (0-55); Albumin/Globulin Ratio 0.4 (1.1-2.2); Alkaline Phosphatase 105 Units/L (38-126); Aspartate Amino Transferase 7 Units/L (5-34); BUN/Creatinine Ratio 18 (6-26); Blood Urea Nitrogen 11 mg/dL (7-20); Calcium 9.5 mg/dL (8.6-10.8); Carbon Dioxide 29 mEq/L (19-29); Chloride 98 mEq/L (98-109); Glucose 179 mg/dL (70-99); Osmolality,Calculated 286 (280-300); Sodium 136 mEq/L (136-145); Total Protein 6.8 g/dL (6.0-8.3); eGFR For African Americans > 60 (> 60); eGFR For Non-African Americans > 60 (> 60)
[2016-12-25 05:34] LABS: Albumin 1.8 g/dL (3.5-5.0); Bilirubin,Total < 0.3 mg/dL (0.2-1.2)
[2016-12-25] MEDS ORDERED: Bupivacaine/Clonidine Syringe 1 EACH SYRINGE ONE (06:33)
[2016-12-25] MEDS ORDERED: *HR* FentaNYL (PF) 100 MCG/2 ML VIAL ONE (07:14)
[2016-12-25] MEDS ORDERED: Propofol 500 MG/50 ML INFUS..BTL ONE (07:14)
[2016-12-25] MEDS ORDERED: *HR* Midazolam HCl 5 MG/5 ML VIAL IVP ONE (07:15)
[2016-12-25] MEDS: Loratadine 10 MG TABLET PO SCH (09:56)
[2016-12-25] MEDS: cloNIDine HCl 0.1 MG TABLET PO SCH ×2 (09:56→19:54)
[2016-12-25] MEDS: *HR* Metformin 500 MG TABLET PO SCH ×2 (09:57→16:00)
[2016-12-25] MEDS: Gabapentin 300 MG CAPSULE PO SCH ×4 (09:57→19:53)
[2016-12-25] MEDS: Methocarbamol 500 MG TABLET PO SCH (09:57)
[2016-12-25] MEDS: hydroCHLOROthiazide 25 MG TABLET PO SCH (09:57)
[2016-12-25] MEDS: tiZANidine 4 MG TABLET PO SCH ×2 (09:58→19:54)
[2016-12-25] MEDS: Insulin DETEMIR 100 UNIT/ML X5UNITS SQ SCH ×2 (10:04→20:19)
[2016-12-25] MEDS: (Lubiprostone [Amitiza] 24 MCG) PO SCH (10:05)
--- NOTE | 2016-12-25 12:43 | Infectious Disease Progress No ---
Date of Encounter: 12/25/16 Time of Encounter: 12:40 - Assessment and Plan (1) Sepsis Current Visit: Yes Status: Acute The patient had two SIRS criteria on admission. Secondary to right foot cellulitis/OM. Improved. WBC trending down. Tachycardia has improved. Blood cultures drawn 12/21/16 x 2 sets are NGTD. Qualifiers: Sepsis type: sepsis due to unspecified organism Qualified Code(s): A41.9 - Sepsis, unspecified organism (2) Osteomyelitis of toe of right foot Current Visit: Yes Status: Suspected Location: Right great toe. Causative organism GBS. Secondary to diabetic foot ulcer. X-ray negative for OM, but intra-operative findings and labs concerning for OM. ESR >130, CRP 351. Podiatry consulted. Status post I & D for OM, right great toe amputation, and tissue transfer with wound VAC application 12/22/[address] Alexander. Operative report reviewed. Intra-op cultures grew GBS. Status post repeat I & D 12/25/[address] Alexander. Will review operative note when available. Continue Rocephin 2 grams IV daily. Duration of treatment depends on the clinical picture, but likely 6 weeks of IV antibiotics. Continue wound care and activity restrictions as outlined by the primary team. Consult social service agency director to assist with discharge planning. Consult VAT for EPIV placement. (3) Cellulitis of foot, right Current Visit: Yes Status: Acute Location: Right foot. Causative organism likely GBS. Improved. Continue antibiotics as above. (4) Hypertension Current Visit: Yes Status: Chronic Qualifiers: Hypertension type: essential hypertension Qualified Code(s): I10 - Essential (primary) hypertension (5) Tobacco abuse Current Visit: Yes Status: Acute (6) Type 2 diabetes mellitus Current Visit: Yes Status: Chronic Uncontrolled. HgbA1C 12%. Recommend aggressive glucose monitoring and control to promote wound healing and prevent re-infection. Management per the primary team. Qualifiers: Diabetes mellitus complication status: without complication Diabetes mellitus senior living insulin use: with long term care phlebotomist use Qualified Code(s): E11.9 - Type 2 diabetes mellitus without complications; Z79.4 - longterm (current) use of insulin - Subjective Interval history: Patient seen and examined. Status post repeat I & D this morning. States that overall she feels okay, just tired. Denies fevers, chills, or rigors. Denies chest pain, shortness of breath, or cough. Denies nausea, vomiting, diarrhea, or constipation. Denies abdominal pain and states her appetite is okay. Denies pain at the surgical site, but currently reports an exacerbation of the chronic back pain. Denies oral thrush or skin lesions. Denies urinary complaints. Infect Dis PN-Objective Data - Labs CBC & Chem 7: 12/25/16 04:19 12/25/16 04:19 Labs: Laboratory Results - last 24 hr 12/24/16 12/24/16 12/24/16 15:10 16:36 20:14 WBC RBC Hgb Hct MCV MCH MCHC RDW Plt Count MPV Immature Gran % Seg Neutrophils % Lymphocytes % Monocytes % Eosinophils % Basophils % Neutrophils # Lymphocytes # Monocytes # Eosinophils # Basophils # Sodium Potassium Chloride Carbon Dioxide BUN Creatinine Est GFR ( Amer) Est GFR (Non-Af Amer) BUN/Creatinine Ratio Glucose POC Glucose 167 H 253 H Calculated Osmolality Calcium Total Bilirubin AST ALT Alkaline Phosphatase Serum Total Protein Albumin Globulin Albumin/Globulin Ratio Vancomycin Trough 13.5 12/25/16 12/25/16 12/25/16 04:19 04:19 05:23 WBC 13.6 H RBC 3.94 Hgb 11.0 L Hct 34.6 L MCV 87.8 MCH 27.9 L MCHC 31.8 RDW 12.4 Plt Count 356 MPV 10.2 Immature Gran % 4.3 H Seg Neutrophils % 73.0 Lymphocytes % 16.2 Monocytes % 4.4 Eosinophils % 1.6 Basophils % 0.5 Neutrophils # 10.0 H Lymphocytes # 2.2 Monocytes # 0.6 Eosinophils # 0.2 Basophils # 0.1 Sodium 136 Potassium 4.0 Chloride 98 Carbon Dioxide 29 BUN 11 Creatinine 0.62 Est GFR ( Amer) > 60 Est GFR (Non-Af Amer) > 60 BUN/Creatinine Ratio 18 Glucose 179 H POC Glucose 148 H Calculated Osmolality 286 Calcium 9.5 Total Bilirubin < 0.3 AST 7 ALT 7 Alkaline Phosphatase 105 Serum Total Protein 6.8 Albumin 1.8 L Globulin 5.0 H Albumin/Globulin Ratio 0.4 L Vancomycin Trough 12/25/16 12/25/16 09:49 11:27 WBC RBC Hgb Hct MCV MCH MCHC RDW Plt Count MPV Immature Gran % Seg Neutrophils % Lymphocytes % Monocytes % Eosinophils % Basophils % Neutrophils # Lymphocytes # Monocytes # Eosinophils # Basophils # Sodium Potassium Chloride Carbon Dioxide BUN Creatinine Est GFR ( Amer) Est GFR (Non-Af Amer) BUN/Creatinine Ratio Glucose POC Glucose 106 H 157 H Calculated Osmolality Calcium Total Bilirubin AST ALT Alkaline Phosphatase Serum Total Protein Albumin Globulin Albumin/Globulin Ratio Vancomycin Trough Cultures: Cultures 12/22/16 13:15 Wound Culture - Final Right Great Toe Strep agalactiae - (Group B) 12/22/16 13:15 Wound Culture - Final Right Great Toe Strep agalactiae - (Group B) 12/21/16 05:06 Blood Culture - Preliminary Peripheral Venipuncture No growth. 12/21/16 05:06 Blood Culture - Preliminary Peripheral Venipuncture No growth. Exam - Constitutional Vitals: Temp Pulse Resp BP Pulse Ox 97.3 F L 76 16 126/83 97 12/25/16 09:46 12/25/16 09:46 12/25/16 09:46 12/25/16 09:46 12/25/16 03:47 General appearance: cooperative, no acute distress, obese - Head Head exam: Present: atraumatic, normal inspection, normocephalic - Eye Eye exam: Present: EOMI, normal appearance, PERRL Pupils: Present: normal accommodation - ENT ENT exam: Present: mucous membranes moist - Neck Neck exam: Present: normal inspection - Respiratory Respiratory exam: Present: CTAB. Absent: rales, respiratory distress, rhonchi, wheezes - Cardiovascular Cardiovascular exam: Present: RRR, +S1, +S2 - GI/Abdominal GI/Abdominal exam: Present: normal bowel sounds, soft. Absent: distended, tenderness - Extremities Exam Extremities exam: Present: pedal edema (1+ RLE), tenderness (right foot) Additional comments: Right foot post-op dressing C/D/I with TLS drain. Small amount of sanguinous drainage noted in the TLS drain at this time. - Neurological Exam Neurological exam: Present: alert, oriented X3, no focal deficits - Psychiatric Psychiatric exam: Present: normal affect, normal mood - Skin Skin exam: Present: dry, intact, normal color, warm - VTE Documentation of Mechanical Device: Intermittent pneumatic compression device Consult Discharge Plan - Plan Referrals: Andrea Boland MD [Primary Care Provider] -
--- NOTE | 2016-12-25 17:37 | Orthopedic Operative Note ---
Date of procedure: 12/25/16 Pre-op diagnosis: Open surgical wound status post amputation of great toe right Post-op diagnosis: same Procedure: 12/25/16 17:30 #1 incision and drainage and debridement of wound to bone #2 secondary closure surgical wound with placement of TLS drain Implants: TLS drain Complications: #1: Discovery of loculated abscess plantar aspect of the medial compartment Anesthesia: MAC, local Local Anesthetics: 0.25% Sensorcaine HCL SubQ (cc) Surgeon: Arslan Alexander Estimated blood loss (cc): 10 Tourniquet Time (Minutes): 0 Specimen: None Condition: stable Disposition: floor Procedure in Detail: 12/25/16 17:32 Details summary the procedure: The patient was brought to the surgical suite. A signed procedure was performed. Patient was then transferred to the surgical table position probably safely securely. The right foot was elevated on a foam block. Anesthetic timeout was taken. The right ankle was prepped with alcohol 3 times. An ankle block was then carried out without difficulty or complication. The right foot was then prepped and draped in usual sterile manner. No tourniquet was used. Surgical timeout was then taken. All sutures were removed from the previous incision as was the wound VAC prior to prepping and draping. I noted skin necrosis of the dorsal distal flap. After removing all sutures the wound was explored. A fresh skin edge was obtained of the distal dorsal flap by excising approximately 1 cm full- thickness skin flap from proximal to distal and a radial fashion. The wound was explored throughout and re-debrided by surgical excision using ultrasonic[employer]OCUS [employer]onix debrider. The distal medial dorsal aspect of the first metatarsal was noted to be obtrusive and protruding. It was resected using a osteotome and mallet and remodeled using a rongeur and Fredy nasal rasp to create less tension on the dorsal skin. Exploring the plantar wound a loculated abscess was noted to be occupying the plantar medial compartment it was completely opened and drained. Complete surgical debridement of the wound by excision was performed with pickups and Metzenbaum scissors and an ultrasonic Misonic debrider. There is no further evidence of abscess along the flexor tendon. The wound was copiously lavaged with sterile saline approximate 500 mL and then the wound was re-debrided and reirrigated using ultrasonics Misonix debrider. Complete a thorough inspection of the wound revealed no other further evidence of necrosis or abscess. Remainder of the wound was noted to bleed freely without necessitating use of Bovie ligature. At that juncture TLS drain was placed specifically in the area of the previous loculated abscess as well as throughout the wound. The wound was then closed in in layers. The flexor tendon was reanastomosed to the dorsal medial aspect of the first metatarsal periosteum. It was anastomosed with 3-0 Vicryl. That juncture the skin was closed with 3-0 Prolene and a skin stapler. The wound was sprayed with PRP prior to closure. The wound edges were viable and bleeding prior to closure. TLS drain was noted to function properly. The wound was then dressed with Adaptic 4 x 4's and Kerlix and a mild compressive dressing. Patient tolerated procedure well and was then sent to holding room in good condition with vital signs stable 01/05/17 12:37
[2016-12-26] MEDS: *HR* OxyCODONE/APAP 10/325 TABLET PO PRN ×4 (00:26→19:51)
[2016-12-26] MEDS: (Lubiprostone [Amitiza] 24 MCG) PO SCH ×2 (02:45→09:36)
[2016-12-26] MEDS: *HR* OxyCODONE/APAP 5/325 TABLET PO PRN ×2 (03:43→11:13)
[2016-12-26] MEDS: Ipratropium/Albuterol Neb 3 ML IH SCH ×4 (04:21→21:30)
[2016-12-26] MEDS: *HR* Enoxaparin 40 MG/0.4 ML SYRINGE SQ SCH (05:20)
--- NOTE | 2016-12-26 08:49 | Infectious Disease Progress No ---
Date of Encounter: 12/26/16 Time of Encounter: 08:47 - Assessment and Plan (1) Sepsis Current Visit: Yes Status: Acute The patient had two SIRS criteria on admission. Secondary to right foot cellulitis/OM. Improved. WBC trending down. Tachycardia has improved. Blood cultures drawn 12/21/16 x 2 sets are NGTD. Qualifiers: Sepsis type: sepsis due to unspecified organism Qualified Code(s): A41.9 - Sepsis, unspecified organism (2) Osteomyelitis of toe of right foot Current Visit: Yes Status: Suspected Location: Right great toe. Causative organism GBS. Secondary to diabetic foot ulcer. X-ray negative for OM, but intra-operative findings and labs concerning for OM. ESR >130, CRP 351. Podiatry consulted. Status post I & D for OM, right great toe amputation, and tissue transfer with wound VAC application 12/22/[address] Alexander. Operative report reviewed. Intra-op cultures grew GBS. Status post repeat I & D 12/25/[address] Alexander. Will review operative note when available. Continue Rocephin 2 grams IV daily. Duration of treatment depends on the clinical picture, but likely 6 weeks of IV antibiotics. Continue wound care and activity restrictions as outlined by the primary team. Consult social media sr strategy manager to assist with discharge planning. Consult VAT for EPIV placement. (3) Cellulitis of foot, right Current Visit: Yes Status: Acute Location: Right foot. Causative organism likely GBS. Improved. Continue antibiotics as above. (4) Hypertension Current Visit: Yes Status: Chronic Qualifiers: Hypertension type: essential hypertension Qualified Code(s): I10 - Essential (primary) hypertension (5) Tobacco abuse Current Visit: Yes Status: Acute (6) Type 2 diabetes mellitus Current Visit: Yes Status: Chronic Uncontrolled. HgbA1C 12%. Recommend aggressive glucose monitoring and control to promote wound healing and prevent re-infection. Management per the primary team. Qualifiers: Diabetes mellitus complication status: without complication Diabetes mellitus prison insulin use: with terminal gauger supervisor use Qualified Code(s): E11.9 - Type 2 diabetes mellitus without complications; Z79.4 - custodial (current) use of insulin - Subjective Interval history: Patient seen and examined. Status post repeat I & D this morning. States that overall she feels okay, just tired. Denies fevers, chills, or rigors. Denies chest pain, shortness of breath, or cough. Denies nausea, vomiting, diarrhea, or constipation. Denies abdominal pain and states her appetite is okay. Denies pain at the surgical site, but currently reports an exacerbation of the chronic back pain. Denies oral thrush or skin lesions. Denies urinary complaints. Infect Dis PN-Objective Data - Labs CBC & Chem 7: 12/25/16 04:19 12/25/16 04:19 Labs: Laboratory Results - last 24 hr 12/25/16 12/25/16 12/25/16 09:49 11:27 16:27 POC Glucose 106 H 157 H 221 H 12/25/16 12/26/16 21:10 07:09 POC Glucose 292 H 171 H Cultures: Cultures 12/22/16 13:15 Anaerobic Culture - Preliminary Right Great Toe Anaerobic Gram Negative Gallo 12/22/16 13:15 Wound Culture - Final Right Great Toe Strep agalactiae - (Group B) 12/22/16 13:15 Wound Culture - Final Right Great Toe Strep agalactiae - (Group B) 12/21/16 05:06 Blood Culture - Preliminary Peripheral Venipuncture No growth. 12/21/16 05:06 Blood Culture - Preliminary Peripheral Venipuncture No growth. - Impressions Impressions Foot X-Ray 12/25/16 09:28 IMPRESSION: No radiographic evidence of complication status post amputation of the right hallux. D/ / Ramez Murillo MD / Ramez Murillo MD Interpreting Provider: Ramez Murillo MD Exam - Constitutional Vitals: Temp Pulse Resp BP Pulse Ox 98.1 F 79 16 145/85 98 12/26/16 07:19 12/26/16 07:19 12/26/16 07:19 12/26/16 07:19 12/26/16 07:19 - VTE Documentation of Mechanical Device: Intermittent pneumatic compression device Consult Discharge Plan - Plan Referrals: Andrea Boland MD [Primary Care Provider] - Prescriptions: cefTRIAXone [Rocephin] 2,000 mg IVPB DAILY #42 vial
[2016-12-26] MEDS: Methocarbamol 500 MG TABLET PO SCH (09:35)
[2016-12-26] MEDS: Gabapentin 300 MG CAPSULE PO SCH ×4 (09:35→19:52)
[2016-12-26] MEDS: Loratadine 10 MG TABLET PO SCH (09:35)
[2016-12-26] MEDS: *HR* Metformin 500 MG TABLET PO SCH ×2 (09:35→15:18)
[2016-12-26] MEDS: hydroCHLOROthiazide 25 MG TABLET PO SCH (09:36)
[2016-12-26] MEDS: cloNIDine HCl 0.1 MG TABLET PO SCH ×2 (09:36→19:51)
[2016-12-26] MEDS: tiZANidine 4 MG TABLET PO SCH ×2 (09:36→19:52)
[2016-12-26] MEDS: Insulin DETEMIR 100 UNIT/ML X5UNITS SQ SCH ×2 (09:43→21:00)
--- NOTE | 2016-12-26 09:57 | Infectious Disease Progress No ---
Date of Encounter: 12/26/16 Time of Encounter: 09:55 - Assessment and Plan (1) Sepsis Current Visit: Yes Status: Acute The patient had two SIRS criteria on admission. Secondary to right foot cellulitis/OM. Improved. WBC trending down. Tachycardia has improved. Blood cultures drawn 12/21/16 x 2 sets are NGTD. Repeat CBC and BMP now. Qualifiers: Sepsis type: sepsis due to unspecified organism Qualified Code(s): A41.9 - Sepsis, unspecified organism (2) Osteomyelitis of toe of right foot Current Visit: Yes Status: Suspected Location: Right great toe. Causative organism GBS. Secondary to diabetic foot ulcer. X-ray negative for OM, but intra-operative findings and labs concerning for OM. ESR >130, CRP 351. Podiatry consulted. Status post I & D for OM, right great toe amputation, and tissue transfer with wound VAC application 12/22/[address] Alexander. Operative report reviewed. Intra-op cultures grew GBS. Status post repeat I & D and debridement of wound to bone with secondary closure of the surgical wound with placement of TLS drain 12/25/[address] Alexander. Operative note reviewed. Abscess noted in the plantar compartment. Continue Rocephin 2 grams IV daily. Duration of treatment depends on the clinical picture, but likely 6 weeks of IV antibiotics. OPAT contract reviewed with the patient and has been signed. Continue wound care and activity restrictions as outlined by the primary team. Consult aids social worker to assist with discharge planning. Get weekly CBC, BUN/Cr, ESR, and CRP every Thursday for the duration of treatment. Weekly midline care per protocol. Follow up with ID 01/13/17 at 0830. (3) Cellulitis of foot, right Current Visit: Yes Status: Acute Location: Right foot. Causative organism likely GBS. Improved. Continue antibiotics as above. (4) Hypertension Current Visit: Yes Status: Chronic Qualifiers: Hypertension type: essential hypertension Qualified Code(s): I10 - Essential (primary) hypertension (5) Tobacco abuse Current Visit: Yes Status: Acute (6) Type 2 diabetes mellitus Current Visit: Yes Status: Chronic Uncontrolled. HgbA1C 12%. Recommend aggressive glucose monitoring and control to promote wound healing and prevent re-infection. Management per the primary team. Qualifiers: Diabetes mellitus complication status: without complication Diabetes mellitus long term acute care registered nurse insulin use: with [facility] use Qualified Code(s): E11.9 - Type 2 diabetes mellitus without complications; Z79.4 - snf (current) use of insulin - Subjective Interval history: Patient seen and examined. No acute events noted overnight. Patient states that overall she feels well. Denies fevers, chills, or rigors. Denies chest pain, shortness of breath, or cough. Denies nausea, vomiting, diarrhea, or constipation. Denies abdominal pain and states her appetite is very good. Complains of pain at the surgical site, 4/10 this morning and she reports an exacerbation of the chronic back pain. Denies oral thrush or skin lesions. Denies urinary complaints. Infect Dis PN-Objective Data - Labs CBC & Chem 7: 12/25/16 04:19 12/25/16 04:19 Labs: Laboratory Results - last 24 hr 12/25/16 12/25/16 12/25/16 09:49 11:27 16:27 POC Glucose 106 H 157 H 221 H 12/25/16 12/26/16 21:10 07:09 POC Glucose 292 H 171 H Cultures: Cultures 12/21/16 05:06 Blood Culture - Final Peripheral Venipuncture No growth. 12/21/16 05:06 Blood Culture - Final Peripheral Venipuncture No growth. 12/22/16 13:15 Anaerobic Culture - Preliminary Right Great Toe Anaerobic Gram Negative Gallo 12/22/16 13:15 Wound Culture - Final Right Great Toe Strep agalactiae - (Group B) 12/22/16 13:15 Wound Culture - Final Right Great Toe Strep agalactiae - (Group B) - Impressions Impressions Foot X-Ray 12/25/16 09:28 IMPRESSION: No radiographic evidence of complication status post amputation of the right hallux. D/ / Ramez Murillo MD / Ramez Murillo MD Interpreting Provider: Ramez Murillo MD Exam - Constitutional Vitals: Temp Pulse Resp BP Pulse Ox 98.1 F 79 16 145/85 98 12/26/16 07:19 12/26/16 07:19 12/26/16 07:19 12/26/16 07:19 12/26/16 07:19 General appearance: cooperative, no acute distress, obese - Head Head exam: Present: atraumatic, normal inspection, normocephalic - Eye Eye exam: Present: EOMI, normal appearance, PERRL Pupils: Present: normal accommodation - ENT ENT exam: Present: mucous membranes moist - Neck Neck exam: Present: normal inspection - Respiratory Respiratory exam: Present: rhonchi (throughout). Absent: rales, respiratory distress, wheezes - Cardiovascular Cardiovascular exam: Present: RRR, +S1, +S2 - GI/Abdominal GI/Abdominal exam: Present: distended (obese), normal bowel sounds, soft. Absent: tenderness - Extremities Exam Extremities exam: Present: pedal edema (1+ RLE). Absent: tenderness Additional comments: Right foot dressing C/D/I with TLS drain. Small amount of sanguinous drainage noted in the TLS drain. - Neurological Exam Neurological exam: Present: alert, oriented X3, no focal deficits - Psychiatric Psychiatric exam: Present: normal affect, normal mood - Skin Skin exam: Present: dry, intact, normal color, warm - VTE Documentation of Mechanical Device: Intermittent pneumatic compression device Consult Discharge Plan - Plan Referrals: Andrea Boland MD [Primary Care Provider] - Shanique Mancia CNP [Advanced Practice Nurse] - 01/13/17 8:30 am Prescriptions: cefTRIAXone [Rocephin] 2,000 mg IVPB DAILY #42 vial
--- NOTE | 2016-12-26 10:25 | Discharge Summary ---
<Jesus Wayne T - Last Filed: 12/26/16 18:08> Date of Encounter: 12/26/16 - Discharge Medications Prescriptions: cefTRIAXone [Rocephin] 2,000 mg IVPB DAILY #42 vial Insulin DETEMIR [Levemir] 40 unit SQ BID 30 Days Home Medications: Albuterol Sulfate [Albuterol Inhaler] 1 puff IH PRN PRN 12/05/14 [History] Albuterol Sulfate [Albuterol Inhaler] 1 puff IH PRN PRN 12/05/14 [History] CloNIDine HCl 0.3 mg PO BID 12/05/14 [History] DiphenhydraMINE [Benadryl] 25 mg PO HS 12/05/14 [History] Duloxetine HCl [Cymbalta] 90 mg PO DAILY 12/05/14 [History] Folic Acid 1 mg PO DAILY 12/05/14 [History] Gabapentin [Neurontin] 600 mg PO QID 12/05/14 [History] Loratadine [Claritin] 10 mg PO DAILY 12/05/14 [History] Losartan Potassium [Cozaar] 100 mg PO DAILY 12/05/14 [History] Lubiprostone [Amitiza] 24 mcg PO BID 12/05/14 [History] Metformin HCl [Glucophage] 1,000 mg PO BID 12/05/14 [History] Methocarbamol [Robaxin] 500 mg PO DAILY 12/05/14 [History] Mometasone/Formoterol [Dulera 200 Mcg/5 Mcg Inhaler] 8.8 gm IH BID 12/05/14 [ History] Montelukast [Singulair] 10 mg PO DAILY 12/05/14 [History] Oxycodone HCl/Acetaminophen [Percocet 10-325 mg Tablet] 1 each PO Q4HR 12/05/14 [History] Promethazine [Phenergan] 25 mg PO Q6HR PRN #20 tablet 12/05/14 [Rx] Spironolactone [Aldactone] 50 mg PO DAILY 12/05/14 [History] Vitamin E 400 unit PO DAILY 12/05/14 [History] hydroCHLOROthiazide [Hydrochlorothiazide] 50 mg PO DAILY 12/05/14 [History] tiZANidine [Zanaflex] 4 mg PO BID 12/05/14 [History] OxyCODONE/APAP 5/325 [Percocet 5/325 MG] 1 each PO Q6HR PRN #10 tablet 10/31/15 [Rx] Insulin DETEMIR [Levemir] 40 unit SQ BID 30 Days 12/26/16 [Rx] cefTRIAXone [Rocephin] 2,000 mg IVPB DAILY #42 vial 12/26/16 [Rx] Allergies/Adverse Reactions: 3 Allergy/AdvReac Type Severity Reaction Status Date / Time acetaminophen [From Midrin] Allergy Unknown unknown Verified 12/05/14 18:26 amitriptyline Allergy Unknown unknown Verified 12/05/14 18:26 ciprofloxacin Allergy Unknown unknown Verified 12/05/14 18:26 codeine Allergy Unknown unknown Verified 12/05/14 18:26 daptomycin [From Cubicin] Allergy Unknown unkknown Verified 12/05/14 18:26 dichloralphenazone Allergy Unknown unknown Verified 12/05/14 18:26 [From Midrin] Hydromorphone [From Dilaudid] Allergy Unknown unknown Verified 12/05/14 18:26 ibuprofen Allergy Unknown unknown Verified 12/05/14 18:26 Isometheptene [From Midrin] Allergy Unknown unknown Verified 12/05/14 18:26 latex Allergy Unknown unknown Verified 12/05/14 18:26 lisinopril Allergy Unknown unknown Verified 12/05/14 18:26 morphine Allergy Unknown unknown Verified 12/05/14 18:26 nifedipine Allergy Unknown unknown Verified 12/05/14 18:26 Sulfa (Sulfonamide Allergy Unknown unknown Verified 12/05/14 18:26 Antibiotics) sulfamethoxazole Allergy Unknown unknown Verified 12/05/14 18:26 [From Bactrim] sumatriptan [From Imitrex] Allergy Unknown unknown Verified 12/05/14 18:26 trimethoprim [From Bactrim] Allergy Unknown unknown Verified 12/05/14 18:26 Date of admission: 12/21/16 03:36 Primary care physician: Andrea Boland MD Consults: 12/21/16 03:41 Consult to Physician [CONS] Routine Consulting Provider: Arslan Alexander Reason for Consult: Right great toe osteomyelitis Call Completed: No 12/21/16 06:22 Consult to Nutrition [CONS] Routine Comment: Consulting Provider: NUTRITION Reason for Dietary Consult: MST Score 12/21/16 07:28 Consult to Investor Relations Associate [CONS] Routine Reason for SW Consult: POSSIBLE NEED FOR ECF IF NEED SKILLED NURSING IV ANTIBIOTICS 12/23/16 14:09 Consult to Infectious Diseases [CONS] Routine Consulting Provider: Infectious Disease Flor Reason for Consult: Strep Group B infection of right great toe Call Completed: No 12/25/16 14:55 Consult to Invasive Line Access Team [CONS] Routine Reason for Consult: home iv atb Line Type: Midline - Patient Status Disposition: Home Health Service Condition: Good - Discharge Instructions Instructions: Diabetes Mellitus Type 2 in Adults (DC), Sepsis (DC), Chronic Hypertension (DC) Follow Up With: Andrea Boland MD [Primary Care Provider] - Shanique Mancia CNP [Advanced Practice Nurse] - 01/13/17 8:30 am Additional Instructions: Follow up with PCP in the next 3-5 days Follow up with infectious disease on 01/13/17 at 0830. If you have return of sever pain, change in color or tightness in foot or lower extremity, Fevers, chills, or other concerning symptoms return to the emergency department for further evaluation. Hospital course: Ms. Peres is a 46 year old female - Time Spent with Patient Total time spent providing and/or coordinating discharge services: - Constitutional Vitals: Temp Pulse Resp BP Pulse Ox 97.7 F 75 15 111/72 97 12/26/16 16:42 12/26/16 16:42 12/26/16 16:42 12/26/16 16:42 12/26/16 16:42 - Attending Attestation I have independently seen and examined this patient on 12/26. I have reviewed his EMR and discussed plan of care with the resident, the patient 46 F with PMH of Uncontrolled Complicated DM, with A1C of 12%, HTN, Tobacco abuse admitted for management of Sepsis secondary to R big toe cellulitis with osteomyelitis, she is s/p R big toe amputation POD day 3 Wound culture is growing strep agalacatiae. She is seen at bedside, no new complains Her FS is improving on levemir and home doses of metformin, she continues to refuse prandial/short acting insulin, levemir was increased to 40mg bid. Her renal function is stable Physical exam: VSS, afebrile, Neuro: normal gait, no deficits, abdomen is soft and benign, chest is clear, HS S1, S2 only, extremities: R foot dressing clean and dry, drain with minimal fluid. Labs and Imaging reviewed: Leukocytosis is improving and renal function is stable Plan is to continue current management, stable for discharge home with home health and IV antibiotics. SW clearance is pending. Infectious disease is following, continue antibiotics, she has had an amputation of the osteomyelitic toe and qualifies for a shorter duration of antibiotics, rather than a 6 weeks course Rest of details as in resident physicians documentation <Sidney Herzog - Last Filed: 12/26/16 20:06> Date of Encounter: 12/26/16 Time of Encounter: 10:17 - Discharge Diagnosis (1) Sepsis Priority: Primary Status: Acute Qualifiers: Sepsis type: sepsis due to unspecified organism Qualified Code(s): A41.9 - Sepsis, unspecified organism (2) Osteomyelitis of toe of right foot Priority: Primary Status: Suspected (3) Group B streptococcal infection Priority: Primary Status: Acute (4) Type 2 diabetes mellitus Priority: Primary Status: Chronic Qualifiers: Diabetes mellitus complication status: without complication 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 Qualified Code(s): E11.9 - Type 2 diabetes mellitus without complications; Z79.4 - care home (current) use of insulin (5) Hypertension Priority: Secondary Status: Chronic Qualifiers: Hypertension type: essential hypertension Qualified Code(s): I10 - Essential (primary) hypertension (6) Tobacco abuse Priority: Secondary Status: Acute (7) DVT prophylaxis Priority: Secondary Status: Acute Date of admission: 12/21/16 03:36 Primary care physician: Andrea Boland MD Consults: 12/21/16 03:41 Consult to Physician [CONS] Routine Consulting Provider: Arslan Alexander Reason for Consult: Right great toe osteomyelitis Call Completed: No 12/21/16 06:22 Consult to Nutrition [CONS] Routine Comment: Consulting Provider: NUTRITION Reason for Dietary Consult: MST Score 12/21/16 07:28 Consult to Investor Relations Associate [CONS] Routine Reason for SW Consult: POSSIBLE NEED FOR ECF IF NEED SKILLED NURSING IV ANTIBIOTICS 12/23/16 14:09 Consult to Infectious Diseases [CONS] Routine Consulting Provider: Infectious Disease Raymond Reason for Consult: Strep Group B infection of right great toe Call Completed: No 12/25/16 14:55 Consult to Invasive Line Access Team [CONS] Routine Reason for Consult: home iv atb Line Type: Midline Discharging clinician: Sidney Herzog Anticipated date of discharge: 12/26/16 - Patient Status Functional capacity at discharge: independent ambulation Overall status at discharge: patient is progressing back to baseline - Diet and Activity Activity: increase activity as tolerated Diet: diabetic diet, low fat, low cholesterol Interval History: Ms. Peres is a 45 year old female with past medical history significant for hypertension, diabetes and tobacco abuse who was transferred from [facility] for evaluation of right great toe wound and pain on 12/21/2016. Upon evaluation she was diagnosed with right great toe cellulitis and foot wound. She meet sepsis criteria, wound cultures, blood cultures and labs were collected. Elevated ESR, CRP and clinical picture demonstrated nacrotic toe and high suspicion for osteomylitis.She was seen and evaluated by Podiatry who scheduled her for surgery. 12/22/16 patien went for incision and drainage to bone for osteomyelitis resulting in amputation of right great toe and adjacent tissue transfer and placement of wound VAC. She was transferred back to the floor and continued on antibiotic coverage. Blood cultures negative, wound cultures grew Group B Strep. She remained on the floor for antibiotic coverage and continued wound vac therapy. on 12/25/2016 She went back to the OR for wound debriedment and closure. She returned with a wound vac and partial closure. Her clinical picture continued to improve and laboratory abnormalities improved. Her hyperglycemia was addressed and she required Levemir for proper control of her hyperglycemia. On 12/26/2016 she was seen and evaluated at bedside and determined stable for discharge with home health and IV Ceftriaxone with infusion set up. She was also discharged with Levemir scripts. She was set up with home health and follow up with Podiatry. Hospital course: Ms. Peres is a 46 year old female - Time Spent with Patient Total time spent providing and/or coordinating discharge services: - Constitutional Vitals: Temp Pulse Resp BP Pulse Ox 98.1 F 79 16 145/85 98 12/26/16 07:19 12/26/16 07:19 12/26/16 07:19 12/26/16 07:19 12/26/16 07:19 General appearance: Present: cooperative, mild distress, A&O X 3, answers questions appropriately Exam: General: Patient alert, awake, oriented 3, interactive, in no acute distress HEENT: Normocephalic, atraumatic, pupils equal reactive to light, nasal cavity patent and open septum median position, oral mucosa moist, poor dentition, uvula midline, neck supple trachea midline no palpable lymphadenopathy, no thyromegaly. Chest: Symmetric bilateral correlating with respiratory effort, effort nonlabored. Cardiac: Regular rate and rhythm, positive S1, S2, no bruits appreciated bilateral carotids, Radial pulses 2+ bilateral, posterior tibial and dorsal pedal pulses 2+ bilateral. Respiratory: Diffuse inspiratory and expiratory wheezing, no ronchi or rales appreciated on examination. Abdomen: Soft, nontender, positive bowel sounds, no palpable masses appreciated on examination Extremities: Symmetric bilateral, no erythema or edema, patient moving all 4 extremities spontaneously. Surgical scar at site of amputation of the left fourth toe, right foot bandage with wound VAC status post amputation of right great toe, neurovascularly intact. Neurologic: No focal deficits appreciated on examination. Face symmetric, muscle strength symmetric bilateral upper and lower extremities. - VTE Documentation of Mechanical Device: Intermittent pneumatic compression device
--- NOTE | 2016-12-26 10:32 | Physician Discharge Referral ---
Home Health/Hosp Referral Info Transfer to: Home Health Provider in Charge Post Discharge: PCP - Diagnosis (1) Sepsis Priority: Primary Status: Acute (2) Osteomyelitis of toe of right foot Priority: Primary Status: Suspected (3) Group B streptococcal infection Priority: Primary Status: Acute (4) Type 2 diabetes mellitus Priority: Primary Status: Chronic (5) Hypertension Priority: Secondary Status: Chronic (6) Tobacco abuse Priority: Secondary Status: Acute (7) DVT prophylaxis Priority: Secondary Status: Acute - Respiratory Orders Smoking Cessation: Smoking cessation has been advised. For more information, call the [place] Tobacco Quit Line at 2-945-JESE-NOW. - Diet/Nutrition Diet/Nutrition Orders: No Added Salt (APPLE) Diet/Nutrition: List: Diabetic diet - Activity Activity Orders: Ambulate - Services Needed Following services are medically necessary services: Nursing, Home Health Aide, Physical Therapy, Occupational Therapy, Home Infusion - Transfer Medications Prescriptions: cefTRIAXone [Rocephin] 2,000 mg IVPB DAILY #42 vial Insulin DETEMIR [Levemir] 40 unit SQ BID 30 Days Home Medications: Albuterol Sulfate [Albuterol Inhaler] 1 puff IH PRN PRN 12/05/14 [History] Albuterol Sulfate [Albuterol Inhaler] 1 puff IH PRN PRN 12/05/14 [History] CloNIDine HCl 0.3 mg PO BID 12/05/14 [History] DiphenhydraMINE [Benadryl] 25 mg PO HS 12/05/14 [History] Duloxetine HCl [Cymbalta] 90 mg PO DAILY 12/05/14 [History] Folic Acid 1 mg PO DAILY 12/05/14 [History] Gabapentin [Neurontin] 600 mg PO QID 12/05/14 [History] Loratadine [Claritin] 10 mg PO DAILY 12/05/14 [History] Losartan Potassium [Cozaar] 100 mg PO DAILY 12/05/14 [History] Lubiprostone [Amitiza] 24 mcg PO BID 12/05/14 [History] Metformin HCl [Glucophage] 1,000 mg PO BID 12/05/14 [History] Methocarbamol [Robaxin] 500 mg PO DAILY 12/05/14 [History] Mometasone/Formoterol [Dulera 200 Mcg/5 Mcg Inhaler] 8.8 gm IH BID 12/05/14 [ History] Montelukast [Singulair] 10 mg PO DAILY 12/05/14 [History] Oxycodone HCl/Acetaminophen [Percocet 10-325 mg Tablet] 1 each PO Q4HR 12/05/14 [History] Promethazine [Phenergan] 25 mg PO Q6HR PRN #20 tablet 12/05/14 [Rx] Spironolactone [Aldactone] 50 mg PO DAILY 12/05/14 [History] Vitamin E 400 unit PO DAILY 12/05/14 [History] hydroCHLOROthiazide [Hydrochlorothiazide] 50 mg PO DAILY 12/05/14 [History] tiZANidine [Zanaflex] 4 mg PO BID 12/05/14 [History] OxyCODONE/APAP 5/325 [Percocet 5/325 MG] 1 each PO Q6HR PRN #10 tablet 10/31/15 [Rx] Insulin DETEMIR [Levemir] 40 unit SQ BID 30 Days 12/26/16 [Rx] cefTRIAXone [Rocephin] 2,000 mg IVPB DAILY #42 vial 12/26/16 [Rx] Allergies/Adverse Reactions: 3 Allergy/AdvReac Type Severity Reaction Status Date / Time acetaminophen [From Midrin] Allergy Unknown unknown Verified 12/05/14 18:26 amitriptyline Allergy Unknown unknown Verified 12/05/14 18:26 ciprofloxacin Allergy Unknown unknown Verified 12/05/14 18:26 codeine Allergy Unknown unknown Verified 12/05/14 18:26 daptomycin [From Cubicin] Allergy Unknown unkknown Verified 12/05/14 18:26 dichloralphenazone Allergy Unknown unknown Verified 12/05/14 18:26 [From Midrin] Hydromorphone [From Dilaudid] Allergy Unknown unknown Verified 12/05/14 18:26 ibuprofen Allergy Unknown unknown Verified 12/05/14 18:26 Isometheptene [From Midrin] Allergy Unknown unknown Verified 12/05/14 18:26 latex Allergy Unknown unknown Verified 12/05/14 18:26 lisinopril Allergy Unknown unknown Verified 12/05/14 18:26 morphine Allergy Unknown unknown Verified 12/05/14 18:26 nifedipine Allergy Unknown unknown Verified 12/05/14 18:26 Sulfa (Sulfonamide Allergy Unknown unknown Verified 12/05/14 18:26 Antibiotics) sulfamethoxazole Allergy Unknown unknown Verified 12/05/14 18:26 [From Bactrim] sumatriptan [From Imitrex] Allergy Unknown unknown Verified 12/05/14 18:26 trimethoprim [From Bactrim] Allergy Unknown unknown Verified 12/05/14 18:26 Certification: Further, I certify that my clinical findings support that this patient is homebound (i.e. absences from home require considerable and taxing effort and are for medical reasons or latter day services or infrequently or short duration when for other reasons) because: Homebound Reason: Patient requires assistance of a person or device to safely leave home, Post-surgery restriction and or conditions limit ability to leave home, Leaving home requires considerable and taxing effort due to condition Attestation: My signature below is to certify that this patient is under my care and that I, or nurse practitioner, or a physician's project assistant working with me, has a face-to -face encounter with this patient.
[2016-12-26 11:59] LABS: Hematocrit 33.4 % (35.3-44.9); Hemoglobin 10.7 g/dL (11.5-15.4); Immature Platelets 2.7 % (1.1-6.1); Mean Corpuscular Hemoglobin 28.4 pg (28.0-33.3); Mean Corpuscular Volume 88.6 fL (83.0-100.0); Red Blood Count 3.77 M/mcL (3.82-4.97); Red Cell Distribution Width 12.6 % (11.5-14.5)
--- NOTE | 2016-12-26 16:16 | Podiatry Progress Note ---
Date of Encounter: 12/26/16 Time of Encounter: 12:00 - Assessment and Plan (1) Cellulitis of foot, right Current Visit: Yes Status: Acute Assessment: s/p #1 incision and drainage and debridement of wound to bone #2 secondary closure surgical wound with placement of TLS drain per on 12/25/16 Postoperative day #1. Plan: Dressing removed at bedside. Incision line intact and without signs of infection. area of maceration noted to the lateral edge of surgical wound. Area painted with skin prep to assist in drying maceration. No signs of dehiscence. There is mild expected postoperative edema. There is no erythema, ecchymosis, drainage, odor, or signs of dehiscence. TLS drain is intact and patent. New dressing applied. Cleansed incision line with saline. Adaptic, 4 x 4's and Kerlix were applied. This is to be changed daily at home. TLS drain will need to be monitored. The vacutainer is to be changed when no more than half full. Accurate documentation of output. Drain will remain in place until drainage decreases. If dressing needs to be changed please be sure not to cut line of TLS drain She will have postoperative shoe to bedside at this time. Once TLS drain has been removed we will place her in a diabetic cast boot. Patient will be partial weightbearing. She is to be weightbearing to heel only. If patient goes home with TLS drain she will need to be sent with the Vacutainers Call with any fevers chills nausea vomiting or flulike symptoms Patient will need appointment made to be seen in office per Dwight Montano, or myself next week. (2) Osteomyelitis of toe of right foot Current Visit: Yes Status: Suspected Antibiotic therapy as outlined per ID team Shanique Mancia note: Operative note reviewed. Abscess noted in the plantar compartment. Continue Rocephin 2 grams IV daily. Duration of treatment depends on the clinical picture, but likely 6 weeks of IV antibiotics. OPAT contract reviewed with the patient and has been signed. Extensive instruction was provided at bedside about patient's need for long- term antibiotic therapy due to extensive infection noted with input. Patient has midline in place. Post social work patient is pending authorization prior to discharge from hospital. Subjective Interval history: Patient s/p #1 incision and drainage and debridement of wound to bone #2 secondary closure surgical wound with placement of TLS drain per on 12/25/16 Patient resting comfortably on arrival. Dressing intact. TLS drain intact Patient denies any fevers, chills, n/v or calf pain Patient wanting to go home. Objective - Vital Signs Vital Signs: Vital Signs Temp Pulse Resp BP Pulse Ox 12/26/16 07:19 98.1 F 79 16 145/85 98 12/26/16 04:10 97.5 F L 81 18 118/79 98 12/25/16 23:44 98.8 F 81 19 119/74 96 12/25/16 19:01 98 12/25/16 18:58 99.5 F 84 19 113/65 98 Intake and Output 12/26/16 12/26/16 12/26/16 07:59 15:59 23:59 Intake Total 0 / 0 240 / 240 Output Total 1810 / 1810 5 / 5 Balance -1810 / -1810 235 / 235 Intake: Oral 0 / 0 240 / 240 Output: Urine 1800 / 1800 Wound Drainage 5 / 5 Right Toe 10 5 / 5 Other: Meal Breakfast Percent of Meal Consumed 100% Weight 85.6 kg Blood Glucose* 171 Patient Weight 12/26/16 23:59 Weight 85.6 kg - Exam Exam: Postop Exam: Sutures and betty intact to incision line, no signs of dehiscence. Small area of maceration to lateral edge of surgical wound. No open area, no drainage , no odor, no erythema, no streaking. Minimal edema. TLS drain intact and patent.- Drainage is noted to be a serosanguineous in color. There is a scant amount of a purulent drainage noted within the tube. Drain tube was noted to have drained 31 mL overnight and there is 5 mL's noted to Vacutainer at this time Podiatry General Exam: General appearance: alert awake oriented X 3. Calm and pleasant, no acute distress.. Vascular: Pedal pulses +1/4 DP/PT , No evidence of cyanosis, pallor or rubor, Edema graded at 1+/4, Skin Temperature warm, No calf pain with manual compression. capillary refill time is immediate to digits. Neurologic: Sensation intact to moderate touch - Lab Result Diagrams: 12/26/16 11:45 12/25/16 04:19 Labs: Abnormal lab results WBC 13.3 K/mcL (4.3-11.1) H 12/26/16 11:45 RBC 3.77 M/mcL (3.82-4.97) L 12/26/16 11:45 Hgb 10.7 g/dL (11.5-15.4) L 12/26/16 11:45 Hct 33.4 % (35.3-44.9) L 12/26/16 11:45 Immature Gran % 4.3 % (0-4) H 12/25/16 04:19 Neutrophils # 10.0 K/mcL (1.6-8.9) H 12/25/16 04:19 ESR >= 130 mm/hr (0-15) H 12/21/16 08:49 Glucose 179 mg/dL (70-99) H 12/25/16 04:19 POC Glucose 171 (58-89) H 12/26/16 07:09 Hemoglobin A1c 12.1 % (-5.6) H 12/21/16 05:06 C-Reactive Protein 351 mg/L (Less than 5) H 12/21/16 08:49 Albumin 1.8 g/dL (3.5-5.0) L 12/25/16 04:19 Globulin 5.0 g/dL (2.4-3.5) H 12/25/16 04:19 Albumin/Globulin Ratio 0.4 (1.1-2.2) L 12/25/16 04:19 Microbiology, Last 48 Hours 12/22/16 13:15 Anaerobic Culture - Final Right Great Toe Bacteroides fragilis 12/21/16 05:06 Blood Culture - Final Peripheral Venipuncture No growth. 12/21/16 05:06 Blood Culture - Final Peripheral Venipuncture No growth. - VTE Documentation of Mechanical Device: Intermittent pneumatic compression device Consult Discharge Plan - Plan Instructions: Diabetes Mellitus Type 2 in Adults (DC), Sepsis (DC), Chronic Hypertension (DC) Additional Instructions: Follow up with PCP in the next 3-5 days Follow up with infectious disease on 01/13/17 at 0830. If you have return of sever pain, change in color or tightness in foot or lower extremity, Fevers, chills, or other concerning symptoms return to the emergency department for further evaluation. Referrals: Andrea Boland MD [Primary Care Provider] - Shanique Mancia CNP [Advanced Practice Nurse] - 01/13/17 8:30 am Prescriptions: cefTRIAXone [Rocephin] 2,000 mg IVPB DAILY #42 vial Insulin DETEMIR [Levemir] 40 unit SQ BID 30 Days
--- NOTE | 2016-12-26 18:08 | Event Note ---
Date of Encounter: 12/25/16 Time of Encounter: 09:00 I have independently seen and examined this patient on 12/25. I have reviewed his EMR and discussed plan of care with the resident, the patient 46 F with PMH of Uncontrolled Complicated DM, with A1C of 12%, HTN, Tobacco abuse admitted for management of Sepsis secondary to R big toe cellulitis with osteomyelitis, she is s/p R big toe amputation POD day 3 Wound culture is growing strep agalacatiae. She is seen immediate post-wound revision and secondary closure. She is complaining of being tired but otherwise has no complains Her FS is improving on levemir and home doses of metformin, she continues to refuse prandial/short acting insulin Her renal function is stable Physical exam: VSS, afebrile, Neuro: normal gait, no deficits, abdomen is soft and benign, chest is clear, HS S1, S2 only, extremities: R foot dressing clean and dry Labs and Imaging reviewed: Leukocytosis is improving and renal function is stable Plan is to continue current management, Infectious disease is following, continue antibiotics, she has had an amputation of the osteomyelitic toe and qualifies for a shorter duration of antibiotics, rather than a 6 weeks course Rest of details as in resident physicians documentation
[2016-12-27] MEDS: (Lubiprostone [Amitiza] 24 MCG) PO SCH ×3 (01:10→21:44)
[2016-12-27] MEDS: *HR* OxyCODONE/APAP 10/325 TABLET PO PRN ×5 (01:11→23:04)
[2016-12-27] MEDS: Ipratropium/Albuterol Neb 3 ML IH SCH ×4 (03:25→22:26)
[2016-12-27] MEDS: *HR* Enoxaparin 40 MG/0.4 ML SYRINGE SQ SCH (05:07)
[2016-12-27] MEDS: Insulin DETEMIR 100 UNIT/ML X5UNITS SQ SCH ×2 (08:05→21:43)
[2016-12-27] MEDS: hydroCHLOROthiazide 25 MG TABLET PO SCH (08:05)
[2016-12-27] MEDS: tiZANidine 4 MG TABLET PO SCH ×2 (08:06→21:40)
[2016-12-27] MEDS: *HR* Metformin 500 MG TABLET PO SCH ×2 (08:06→16:41)
[2016-12-27] MEDS: Gabapentin 300 MG CAPSULE PO SCH ×4 (08:06→21:40)
[2016-12-27] MEDS: cloNIDine HCl 0.1 MG TABLET PO SCH ×2 (08:06→21:43)
[2016-12-27] MEDS: Loratadine 10 MG TABLET PO SCH (08:06)
[2016-12-27] MEDS: Methocarbamol 500 MG TABLET PO SCH (08:06)
--- NOTE | 2016-12-27 10:47 | Internal Med Progress Note ---
Date of Encounter: 12/27/16 Time of Encounter: 10:47 - Assessment and plan (1) Osteomyelitis of toe of right foot Current Visit: Yes Status: Acute Assessment and plan: Patient is status post amputation of right great toe secondary to osteomyelitis - Wound cultures grew group B strep - Blood cultures no growth - Initial foot x-ray demonstrates soft tissue involvement but could not rule out osteomyelitis - Initial CRP was 351, ESR greater than 130 - Leukocytosis improving since admission - Podiatry involved in patient's care, secondary closure on 12/25/2016 - Continue wound care - Continue pain management -Continue ceftriaxone 2g daily (2) Cellulitis of foot, right Current Visit: Yes Status: Acute Assessment and plan: Keep leg elevated. Pain control. Clinically improving (3) Type 2 diabetes mellitus Current Visit: Yes Status: Chronic Assessment and plan: Uncontrolled. Hemoglobin A1c of 12.1 at admission - Patient refuses to go off metformin during inpatient stay Plan: - Continue metformin 1000 mg twice a day - Renal function stable, continue to monitor closely - Increased levemir to 40units BID Qualifiers: Diabetes mellitus complication status: without complication Diabetes mellitus vermin exterminator insulin use: with vermin exterminator use Qualified Code(s): E11.9 - Type 2 diabetes mellitus without complications; Z79.4 - exterminator termite (current) use of insulin (4) Sepsis Current Visit: Yes Status: Acute Assessment and plan: Improving. From right great toe infection and cellulitis. Continue IV antibiotics. Wound culture growing group B streptococcus. We will consult infectious disease for antibiotic recommendations. Leukocytosis improving. Moderate risk for complications with uncontrolled diabetes. Qualifiers: Sepsis type: sepsis due to unspecified organism Qualified Code(s): A41.9 - Sepsis, unspecified organism (5) Hypertension Current Visit: Yes Status: Chronic Assessment and plan: Well-controlled. Plan: - Continue clonidine 0.3 mg by mouth twice a day - HCTZ 50 mg by mouth daily - Cozaar 100 mg daily - Spironolactone 50 mg by mouth daily Qualifiers: Hypertension type: essential hypertension Qualified Code(s): I10 - Essential (primary) hypertension (6) Tobacco abuse Current Visit: Yes Status: Chronic Assessment and plan: Patient is a current smoker, would benefit from smoking cessation - Smoking cessation discussed (7) DVT prophylaxis Current Visit: Yes Status: Acute Assessment and plan: On subcutaneous Lovenox (8) Group B streptococcal infection Current Visit: Yes Status: Acute Assessment and plan: As in sepsis - Subjective Interval history: Seen and evaluated at bedside Awaiting SW clearance for home infusion Has no new complains - Constitutional Vitals: Temp Pulse Resp BP Pulse Ox 98.0 F 65 18 119/70 100 12/27/16 10:43 12/27/16 10:43 12/27/16 10:43 12/27/16 10:43 12/27/16 10:43 General appearance: Present: cooperative, A&O X 3, pleasant, no acute distress, answers questions appropriately - Head Head exam: Present: atraumatic, normocephalic - Eye Eye exam: Present: PERRL, conjuntiva pink, sclera anicteric Pupils: Present: PERRL - Neck Neck exam general surgery: Present: supple, trachea midline. Absent: lymphadenopathy - Respiratory Respiratory exam: Present: CTAB. Absent: accessory muscle use, rales, rhonchi, wheezes - Cardiovascular Cardiovascular exam: Present: RRR, +S1, +S2. Absent: diastolic murmur, gallop, rubs, systolic murmur - GI/Abdominal GI/Abdominal exam: Present: normal bowel sounds, soft, no peritoneal signs. Absent: distended, tenderness - Extremities Exam Additional comments: Right big toe s/p amputation Extremely excoriated/dirty R plantar surfcae Wound inspected, stitches intact, drain still active No visible pus No fluctuancy Pulses present bilaterally Mild trace edema of R foot - Neurological Exam Neurological exam: Present: alert, CN II-XII intact, oriented X3, no focal deficits. Absent: pronater drift, facial droop, speech deficit - Skin Skin exam: Present: dry Internal Medicine: Result - Labs CBC & Chem 7: 12/26/16 11:45 12/25/16 04:19 Labs: Short CBC 12/26/16 Range/Units 11:45 WBC 13.3 H (4.3-11.1) K/mcL Hgb 10.7 L (11.5-15.4) g/dL Hct 33.4 L (35.3-44.9) % Plt Count 386 (140-400) K/mcL - ABG Interpretation ABG results: PT/INR, D-dimer PT 11.9 Seconds (9.4-12.1) 12/21/16 05:06 - VTE Documentation of Mechanical Device: Intermittent pneumatic compression device Consult Discharge Plan - Plan Instructions: Diabetes Mellitus Type 2 in Adults (DC), Sepsis (DC), Chronic Hypertension (DC) Additional Instructions: Follow up with PCP in the next 3-5 days Follow up with infectious disease on 01/13/17 at 0830. If you have return of sever pain, change in color or tightness in foot or lower extremity, Fevers, chills, or other concerning symptoms return to the emergency department for further evaluation. Referrals: Andrea Boland MD [Primary Care Provider] - Shanique Mancia CNP [Advanced Practice Nurse] - 01/13/17 8:30 am Prescriptions: cefTRIAXone [Rocephin] 2,000 mg IVPB DAILY #42 vial Insulin DETEMIR [Levemir] 40 unit SQ BID 30 Days
[2016-12-27] MEDS: *HR* OxyCODONE/APAP 5/325 TABLET PO PRN (21:40)
[2016-12-28] MEDS: Ipratropium/Albuterol Neb 3 ML IH SCH ×4 (04:04→22:01)
[2016-12-28] MEDS: *HR* OxyCODONE/APAP 10/325 TABLET PO PRN ×4 (04:32→21:39)
[2016-12-28] MEDS: *HR* Enoxaparin 40 MG/0.4 ML SYRINGE SQ SCH (06:11)
[2016-12-28 06:32] LABS: Eosinophils # 0.3 K/mcL (0.0-0.6); Hematocrit 33.9 % (35.3-44.9); Mean Corpuscular HGB Conc 32.4 g/dL (31.6-35.5); Mean Corpuscular Hemoglobin 29.1 pg (28.0-33.3); Mean Corpuscular Volume 89.7 fL (83.0-100.0); Mean Platelet Volume 9.8 fL (9.4-12.4); Platelet Count 381 K/mcL (140-400); Red Blood Count 3.78 M/mcL (3.82-4.97); Red Cell Distribution Width 12.8 % (11.5-14.5)
[2016-12-28 07:16] LABS: Large Platelets Present (Not Present); Lymphocytes # 3.6 K/mcL (0.6-4.6); Monocytes # 0.8 K/mcL (0.0-1.3); Neutrophils # 10.4 K/mcL (1.6-8.9); Platelet Estimate Normal (Normal)
[2016-12-28] MEDS: hydroCHLOROthiazide 25 MG TABLET PO SCH (07:59)
[2016-12-28] MEDS: cloNIDine HCl 0.1 MG TABLET PO SCH ×2 (08:00→21:36)
[2016-12-28] MEDS: Methocarbamol 500 MG TABLET PO SCH (08:00)
[2016-12-28] MEDS: Gabapentin 300 MG CAPSULE PO SCH ×4 (08:00→21:38)
[2016-12-28] MEDS: tiZANidine 4 MG TABLET PO SCH ×2 (08:00→21:39)
[2016-12-28] MEDS: *HR* Metformin 500 MG TABLET PO SCH ×2 (08:00→16:16)
[2016-12-28] MEDS: Loratadine 10 MG TABLET PO SCH (08:01)
[2016-12-28] MEDS: Insulin DETEMIR 100 UNIT/ML X5UNITS SQ SCH ×2 (08:02→21:44)
[2016-12-28] MEDS: (Lubiprostone [Amitiza] 24 MCG) PO SCH ×2 (08:49→21:38)
--- NOTE | 2016-12-28 09:49 | Internal Med Progress Note ---
Date of Encounter: 12/28/16 Time of Encounter: 09:49 - Assessment and plan (1) Osteomyelitis of toe of right foot Current Visit: Yes Status: Acute Assessment and plan: Patient is status post amputation of right great toe secondary to osteomyelitis - Wound cultures grew group B strep - Blood cultures no growth - Initial foot x-ray demonstrates soft tissue involvement but could not rule out osteomyelitis - Initial CRP was 351, ESR greater than 130 - Leukocytosis today increased to 15 - Podiatry involved in patient's care, secondary closure on 12/25/2016 - Continue wound care - Continue pain management -Continue ceftriaxone 2g daily -Rpt CBC a.m (2) Cellulitis of foot, right Current Visit: Yes Status: Acute Assessment and plan: Keep leg elevated. Pain control. Clinically improving (3) Type 2 diabetes mellitus Current Visit: Yes Status: Chronic Assessment and plan: Uncontrolled. Hemoglobin A1c of 12.1 at admission - Patient refuses to go off metformin during inpatient stay Plan: Continue current regimen Continues to refuse prandial insulin Qualifiers: Diabetes mellitus complication status: without complication Diabetes mellitus jail insulin use: with superintendent marine oil terminal use Qualified Code(s): E11.9 - Type 2 diabetes mellitus without complications; Z79.4 - exterminator helper (current) use of insulin (4) Sepsis Current Visit: Yes Status: Acute Assessment and plan: Improving. From right great toe infection and cellulitis. Continue IV antibiotics. Wound culture growing group B streptococcus. We will consult infectious disease for antibiotic recommendations. Leukocytosis recurred, no other signs of sepsis. Moderate risk for complications with uncontrolled diabetes. Qualifiers: Sepsis type: sepsis due to unspecified organism Qualified Code(s): A41.9 - Sepsis, unspecified organism (5) Hypertension Current Visit: Yes Status: Chronic Assessment and plan: Well-controlled. Plan: - Continue clonidine 0.3 mg by mouth twice a day - HCTZ 50 mg by mouth daily - Cozaar 100 mg daily - Spironolactone 50 mg by mouth daily Qualifiers: Hypertension type: essential hypertension Qualified Code(s): I10 - Essential (primary) hypertension (6) Tobacco abuse Current Visit: Yes Status: Chronic Assessment and plan: Patient is a current smoker, would benefit from smoking cessation - Smoking cessation discussed (7) DVT prophylaxis Current Visit: Yes Status: Acute Assessment and plan: On subcutaneous Lovenox (8) Group B streptococcal infection Current Visit: Yes Status: Acute Assessment and plan: As in sepsis - Subjective Interval history: Seen and evaluated at bedside Awaiting SW clearance for home infusion Has no new complains - Constitutional Vitals: Temp Pulse Resp BP Pulse Ox 96.6 F L 73 17 135/69 98 12/28/16 06:31 12/28/16 06:31 12/28/16 06:12/28/16 06:12/28/16 08:07 General appearance: Present: cooperative, A&O X 3, pleasant, no acute distress, answers questions appropriately - Head Head exam: Present: atraumatic, normocephalic - Eye Eye exam: Present: PERRL, conjuntiva pink, sclera anicteric Pupils: Present: PERRL - Neck Neck exam general surgery: Present: supple, trachea midline. Absent: lymphadenopathy - Respiratory Respiratory exam: Present: CTAB. Absent: accessory muscle use, rales, rhonchi, wheezes - Cardiovascular Cardiovascular exam: Present: RRR, +S1, +S2. Absent: diastolic murmur, gallop, rubs, systolic murmur - GI/Abdominal GI/Abdominal exam: Present: normal bowel sounds, soft, no peritoneal signs. Absent: distended, tenderness - Extremities Exam Extremities exam: Present: warm, radial pulses palpable and symmetrical. Absent : calf tenderness, cyanotic, pedal edema Additional comments: Right big toe s/p amputation Extremely excoriated/dirty R plantar surfcae Wound inspected, stitches intact, drain still active No visible pus No fluctuancy Pulses present bilaterally Mild trace edema of R foot - Neurological Exam Neurological exam: Present: alert, CN II-XII intact, oriented X3, no focal deficits. Absent: pronater drift, facial droop, speech deficit - Skin Skin exam: Present: dry Internal Medicine: Result - Labs CBC & Chem 7: 12/28/16 05:35 12/25/16 04:19 Labs: Short CBC 12/28/16 Range/Units 05:35 WBC 15.1 H (4.3-11.1) K/mcL Hgb 11.0 L (11.5-15.4) g/dL Hct 33.9 L (35.3-44.9) % Plt Count 381 (140-400) K/mcL Neutrophils # 10.4 H (1.6-8.9) K/mcL - ABG Interpretation ABG results: PT/INR, D-dimer PT 11.9 Seconds (9.4-12.1) 12/21/16 05:06 - VTE Documentation of Mechanical Device: Intermittent pneumatic compression device Consult Discharge Plan - Plan Instructions: Diabetes Mellitus Type 2 in Adults (DC), Sepsis (DC), Chronic Hypertension (DC) Additional Instructions: Follow up with PCP in the next 3-5 days Follow up with infectious disease on 01/13/17 at 0830. If you have return of sever pain, change in color or tightness in foot or lower extremity, Fevers, chills, or other concerning symptoms return to the emergency department for further evaluation. Referrals: Andrea Boland MD [Primary Care Provider] - Shanique Mancia CNP [Advanced Practice Nurse] - 01/13/17 8:30 am Prescriptions: cefTRIAXone [Rocephin] 2,000 mg IVPB DAILY #42 vial Insulin DETEMIR [Levemir] 40 unit SQ BID 30 Days
--- NOTE | 2016-12-28 22:20 | Podiatry Progress Note ---
Date of Encounter: 12/28/16 Time of Encounter: 12:12 - Assessment and Plan (1) Osteomyelitis of toe of right foot Current Visit: Yes Status: Acute Patient will continue to remain nonweightbearing to the affected foot. We will monitor white blood cell count to evaluate any increases. At this time it increased slightly but may be postsurgical in nature. Dressings were changed bedside today. Subjective Principal diagnosis: foot infection Interval history: Patient relates no new pedal complaints. Patient states that she is feeling much better. Patient relates that she would like to be discharged. Patient is confused about why she is not discharged at this time. Objective - Vital Signs Vital Signs: Vital Signs Temp Pulse Resp BP Pulse Ox 12/28/16 15:54 98.1 F 74 16 120/77 98 12/28/16 10:53 98.3 F 74 18 112/74 98 12/28/16 08:07 98 12/28/16 06:31 96.6 F L 73 17 135/69 98 12/28/16 04:02 98.2 F 63 14 151/80 99 12/27/16 23:39 98.0 F 69 16 126/73 98 Intake and Output 12/28/16 12/28/16 12/28/16 07:59 15:59 23:59 Intake Total 300 / 300 480 / 480 1080 / 1080 Output Total 1825 / 1825 800 / 800 1400 / 1400 Balance -1525 / -1525 -320 / -320 -320 / -320 Intake: Oral 300 / 300 480 / 480 1080 / 1080 Output: Urine 1800 / 1800 800 / 800 1400 / 1400 Wound Drainage 25 / 25 Right Toe 25 / 25 Other: Meal Lunch Dinner Percent of Meal Consumed 100% 100% # Voids 1 # Bowel Movements 0 0 Weight 85.309 kg Blood Glucose* 178 177 143 Patient Weight 12/28/16 23:59 Weight 85.309 kg - Exam Exam: Sensation decreased, sutures/betty intact, neurovascular status intact, no new erythema, no purulence, capillary fill time intact. Mild white blood cell count increased. - Lab Result Diagrams: 12/28/16 05:35 12/25/16 04:19 Labs: Abnormal lab results WBC 15.1 K/mcL (4.3-11.1) H 12/28/16 05:35 RBC 3.78 M/mcL (3.82-4.97) L 12/28/16 05:35 Hgb 11.0 g/dL (11.5-15.4) L 12/28/16 05:35 Hct 33.9 % (35.3-44.9) L 12/28/16 05:35 Immature Gran % 4.3 % (0-4) H 12/25/16 04:19 Neutrophils # 10.4 K/mcL (1.6-8.9) H 12/28/16 05:35 Large Platelets Present (Not Present) A 12/28/16 05:35 ESR >= 130 mm/hr (0-15) H 12/21/16 08:49 Glucose 179 mg/dL (70-99) H 12/25/16 04:19 POC Glucose 143 (58-89) H 12/28/16 16:10 Hemoglobin A1c 12.1 % (-5.6) H 12/21/16 05:06 C-Reactive Protein 351 mg/L (Less than 5) H 12/21/16 08:49 Albumin 1.8 g/dL (3.5-5.0) L 12/25/16 04:19 Globulin 5.0 g/dL (2.4-3.5) H 12/25/16 04:19 Albumin/Globulin Ratio 0.4 (1.1-2.2) L 12/25/16 04:19 - VTE Documentation of Mechanical Device: Intermittent pneumatic compression device Consult Discharge Plan - Plan Instructions: Diabetes Mellitus Type 2 in Adults (DC), Sepsis (DC), Chronic Hypertension (DC) Additional Instructions: Follow up with PCP in the next 3-5 days Follow up with infectious disease on 01/13/17 at 0830. If you have return of sever pain, change in color or tightness in foot or lower extremity, Fevers, chills, or other concerning symptoms return to the emergency department for further evaluation. Referrals: Andrea Boland MD [Primary Care Provider] - Shanique Mancia CNP [Advanced Practice Nurse] - 01/13/17 8:30 am Prescriptions: cefTRIAXone [Rocephin] 2,000 mg IVPB DAILY #42 vial Insulin DETEMIR [Levemir] 40 unit SQ BID 30 Days
[2016-12-28] MEDS: *HR* Meperidine 25 MG/ML SYRINGE IVP PRN (23:42)
[2016-12-29] MEDS: Ipratropium/Albuterol Neb 3 ML IH SCH ×4 (04:18→21:10)
[2016-12-29] MEDS: *HR* Enoxaparin 40 MG/0.4 ML SYRINGE SQ SCH (06:10)
[2016-12-29] MEDS: *HR* OxyCODONE/APAP 10/325 TABLET PO PRN ×3 (06:11→20:34)
[2016-12-29] MEDS: *HR* Metformin 500 MG TABLET PO SCH ×2 (09:35→17:50)
[2016-12-29] MEDS: hydroCHLOROthiazide 25 MG TABLET PO SCH (09:35)
[2016-12-29] MEDS: *HR* OxyCODONE/APAP 5/325 TABLET PO PRN ×2 (09:35→17:50)
[2016-12-29] MEDS: tiZANidine 4 MG TABLET PO SCH ×2 (09:35→20:35)
[2016-12-29] MEDS: Loratadine 10 MG TABLET PO SCH (09:35)
[2016-12-29] MEDS: cloNIDine HCl 0.1 MG TABLET PO SCH ×2 (09:35→20:34)
[2016-12-29] MEDS: Methocarbamol 500 MG TABLET PO SCH (09:35)
[2016-12-29] MEDS: Gabapentin 300 MG CAPSULE PO SCH ×4 (09:35→20:34)
[2016-12-29] MEDS: (Lubiprostone [Amitiza] 24 MCG) PO SCH ×2 (09:36→20:35)
[2016-12-29] MEDS: Insulin DETEMIR 100 UNIT/ML X5UNITS SQ SCH ×2 (09:36→20:35)
--- NOTE | 2016-12-29 16:22 | Internal Med Progress Note ---
<Sidney Herzog - Last Filed: 12/29/16 16:19> Date of Encounter: 12/29/16 Time of Encounter: 09:30 - Assessment and plan (1) Sepsis Current Visit: Yes Status: Acute Assessment and plan: Resolved, From right great toe infection and cellulitis. Plan: Continue IV ceftriaxone- Wound culture growing group B streptococcus. With plans for roughly 6 weeks therapy. - Moderate risk for complications with uncontrolled diabetes. Qualifiers: Sepsis type: sepsis due to unspecified organism Qualified Code(s): A41.9 - Sepsis, unspecified organism (2) Osteomyelitis of toe of right foot Current Visit: Yes Status: Acute Assessment and plan: Patient is status post amputation of right great toe secondary to osteomyelitis - Wound cultures grew group B strep - Blood cultures no growth - Initial foot x-ray demonstrates soft tissue involvement but could not rule out osteomyelitis - Initial CRP was 351, ESR greater than 130 - Leukocytosis recurrent, may be related to recent surgery Plan: - Continue wound care - Continue pain management - Continue IV ceftriaxone for group B strep - Patient planned to follow-up with podiatry in the outpatient setting. (3) Group B streptococcal infection Current Visit: Yes Status: Acute Assessment and plan: As in sepsis (4) Type 2 diabetes mellitus Current Visit: Yes Status: Chronic Assessment and plan: Uncontrolled. Hemoglobin A1c of 12.1 at admission - Patient refuses to go off metformin during inpatient stay Plan: - Continue metformin 1000 mg twice a day - Renal function stable, continue to monitor closely - Continue Levemir at 40 units twice a day Qualifiers: Diabetes mellitus complication status: without complication Diabetes mellitus fpc insulin use: with fpc use Qualified Code(s): E11.9 - Type 2 diabetes mellitus without complications; Z79.4 - intermediate (current) use of insulin (5) Hypertension Current Visit: Yes Status: Chronic Assessment and plan: Well-controlled. Plan: - Continue clonidine 0.3 mg by mouth twice a day - HCTZ 50 mg by mouth daily - Cozaar 100 mg daily - Spironolactone 50 mg by mouth daily Qualifiers: Hypertension type: essential hypertension Qualified Code(s): I10 - Essential (primary) hypertension (6) Tobacco abuse Current Visit: Yes Status: Chronic Assessment and plan: Patient is a current smoker, would benefit from smoking cessation - Smoking cessation discussed (7) DVT prophylaxis Current Visit: Yes Status: Acute Assessment and plan: On subcutaneous Lovenox - Subjective Interval history: Mrs. Peres 46-year-old female since seen and evaluated patient bedside this morning. She is awake alert and interactive no acute distress. She denies any discomfort and says that her pain is controlled with current medications for pain. She denies any nausea, vomiting, diarrhea, constipation, fevers chills sweating, chest pain palpitations with urination or defecation. She is hoping to leave tomorrow as she feels much better does not want to stay in the hospital any longer. - Constitutional Vitals: Temp Pulse Resp BP Pulse Ox 97.8 F 92 16 158/90 94 12/29/16 15:19 12/29/16 15:19 12/29/16 15:19 12/29/16 15:12/29/16 15:19 General appearance: Present: cooperative, A&O X 3, pleasant, no acute distress, answers questions appropriately Exam: General: Patient alert, awake, oriented 3, interactive, in no acute distress HEENT: Normocephalic, atraumatic, pupils equal reactive to light, nasal cavity patent and open septum median position, oral mucosa moist, poor dentition, uvula midline, neck supple trachea midline no palpable lymphadenopathy, no thyromegaly. Chest: Symmetric bilateral correlating with respiratory effort, effort nonlabored. Cardiac: Regular rate and rhythm, positive S1, S2, no bruits appreciated bilateral carotids, Radial pulses 2+ bilateral, posterior tibial and dorsal pedal pulses 2+ bilateral. Respiratory: Diffuse inspiratory and expiratory wheezing, no ronchi or rales appreciated on examination. Abdomen: Soft, nontender, positive bowel sounds, no palpable masses appreciated on examination Extremities: Symmetric bilateral, no erythema or edema, patient moving all 4 extremities spontaneously. Surgical scar at site of amputation of the left fourth toe, right foot bandage with wound VAC status post amputation of right great toe, neurovascularly intact. Neurologic: No focal deficits appreciated on examination. Face symmetric, muscle strength symmetric bilateral upper and lower extremities. Internal Medicine: Result - Labs CBC & Chem 7: 12/28/16 05:35 12/25/16 04:19 - ABG Interpretation ABG results: PT/INR, D-dimer PT 11.9 Seconds (9.4-12.1) 12/21/16 05:06 - VTE Documentation of Mechanical Device: Intermittent pneumatic compression device Consult Discharge Plan - Plan Instructions: Diabetes Mellitus Type 2 in Adults (DC), Sepsis (DC), Chronic Hypertension (DC) Additional Instructions: Follow up with PCP in the next 3-5 days Follow up with infectious disease on 01/13/17 at 0830. If you have return of sever pain, change in color or tightness in foot or lower extremity, Fevers, chills, or other concerning symptoms return to the emergency department for further evaluation. Referrals: Andrea Boland MD [Primary Care Provider] - Shanique Mancia CNP [Advanced Practice Nurse] - 01/13/17 8:30 am Prescriptions: cefTRIAXone [Rocephin] 2,000 mg IVPB DAILY #42 vial Insulin DETEMIR [Levemir] 40 unit SQ BID 30 Days <Jesus Wayne - Last Filed: 12/29/16 16:37> Date of Encounter: 12/29/16 - Assessment and plan (1) Osteomyelitis of toe of right foot Current Visit: Yes Status: Acute (2) Cellulitis of foot, right Current Visit: Yes Status: Acute (3) Type 2 diabetes mellitus Current Visit: Yes Status: Chronic Qualifiers: Diabetes mellitus complication status: without complication Diabetes mellitus manager hair insulin use: with manager hair use Qualified Code(s): E11.9 - Type 2 diabetes mellitus without complications; Z79.4 - real estate development manager (current) use of insulin (4) Sepsis Current Visit: Yes Status: Acute Qualifiers: Sepsis type: sepsis due to unspecified organism Qualified Code(s): A41.9 - Sepsis, unspecified organism (5) Hypertension Current Visit: Yes Status: Chronic Qualifiers: Hypertension type: essential hypertension Qualified Code(s): I10 - Essential (primary) hypertension (6) Tobacco abuse Current Visit: Yes Status: Chronic (7) DVT prophylaxis Current Visit: Yes Status: Acute (8) Group B streptococcal infection Current Visit: Yes Status: Acute - Constitutional Vitals: Temp Pulse Resp BP Pulse Ox 97.8 F 92 16 158/90 94 12/29/16 15:19 12/29/16 15:19 12/29/16 15:19 12/29/16 15:19 12/29/16 15:19 Internal Medicine: Result - Labs CBC & Chem 7: 12/28/16 05:35 12/25/16 04:19 - ABG Interpretation ABG results: PT/INR, D-dimer PT 11.9 Seconds (9.4-12.1) 12/21/16 05:06 - Attending Attestation I have independently seen and examined this patient on 12/29/16. I have reviewed his EMR and discussed plan of care with the resident, the patient 46 F with PMH of Uncontrolled Complicated DM, with A1C of 12%, HTN, Tobacco abuse admitted for management of Sepsis secondary to R big toe cellulitis with osteomyelitis, she is s/p R big toe amputation. Wound revision and secondary closure Wound culture is growing strep agalacatiae. Physical exam: VSS, afebrile, Neuro: normal gait, no deficits, abdomen is soft and benign, chest is clear, HS S1, S2 only, extremities: R foot dressing clean and dry Labs and Imaging reviewed: Leukocytosis, renal function is stable Plan is to continue current management, Awaiting SW for home infusion, continue other care Rest of details as in resident physicians documentation
[2016-12-30] MEDS: *HR* OxyCODONE/APAP 10/325 TABLET PO PRN ×4 (00:21→16:07)
[2016-12-30] MEDS: *HR* Meperidine 25 MG/ML SYRINGE IVP PRN (03:11)
[2016-12-30] MEDS: Ipratropium/Albuterol Neb 3 ML IH SCH ×3 (04:55→16:03)
[2016-12-30 05:12] LABS: Basophils # 0.1 K/mcL (0.0-0.2); Basophils % 0.6 %; Eosinophils # 0.3 K/mcL (0.0-0.6); Eosinophils % 1.6 %; Hematocrit 34.8 % (35.3-44.9); Hemoglobin 11.3 g/dL (11.5-15.4); Immature Granulocytes % 4.6 % (0-4); Lymphocytes # 3.3 K/mcL (0.6-4.6); Lymphocytes % 20.6 %; Mean Corpuscular HGB Conc 32.5 g/dL (31.6-35.5); Mean Corpuscular Hemoglobin 28.8 pg (28.0-33.3); Mean Corpuscular Volume 88.5 fL (83.0-100.0); Mean Platelet Volume 9.7 fL (9.4-12.4); Monocytes # 0.7 K/mcL (0.0-1.3); Monocytes % 4.2 %; Neutrophils # 10.9 K/mcL (1.6-8.9); Platelet Count 436 K/mcL (140-400); Red Blood Count 3.93 M/mcL (3.82-4.97); Red Cell Distribution Width 12.6 % (11.5-14.5); Segmented Neutrophils % 68.4 %
[2016-12-30] MEDS: *HR* Enoxaparin 40 MG/0.4 ML SYRINGE SQ SCH (05:21)
[2016-12-30 05:26] LABS: Alanine Aminotransferase 9 Units/L (0-55); Albumin 2.1 g/dL (3.5-5.0); Albumin/Globulin Ratio 0.4 (1.1-2.2); Alkaline Phosphatase 86 Units/L (38-126); Aspartate Amino Transferase 8 Units/L (5-34); BUN/Creatinine Ratio 26 (6-26); Bilirubin,Total < 0.3 mg/dL (0.2-1.2); Blood Urea Nitrogen 16 mg/dL (7-20); Calcium 9.9 mg/dL (8.6-10.8); Carbon Dioxide 28 mEq/L (19-29); Chloride 99 mEq/L (98-109); Globulin 4.8 g/dL (2.4-3.5); Glucose 70 mg/dL (70-99); Osmolality,Calculated 284 (280-300); Potassium 4.2 mEq/L (3.5-4.5); Sodium 137 mEq/L (136-145); Total Protein 6.9 g/dL (6.0-8.3); eGFR For African Americans > 60 (> 60); eGFR For Non-African Americans > 60 (> 60)
[2016-12-30] MEDS: cloNIDine HCl 0.1 MG TABLET PO SCH (07:57)
[2016-12-30] MEDS: *HR* Metformin 500 MG TABLET PO SCH ×2 (07:57→16:08)
[2016-12-30] MEDS: Gabapentin 300 MG CAPSULE PO SCH ×3 (07:58→16:08)
[2016-12-30] MEDS: Insulin DETEMIR 100 UNIT/ML X5UNITS SQ SCH (07:58)
[2016-12-30] MEDS: hydroCHLOROthiazide 25 MG TABLET PO SCH (07:58)
[2016-12-30] MEDS: Loratadine 10 MG TABLET PO SCH (07:59)
[2016-12-30] MEDS: (Lubiprostone [Amitiza] 24 MCG) PO SCH (07:59)
[2016-12-30] MEDS: Methocarbamol 500 MG TABLET PO SCH (07:59)
[2016-12-30] MEDS: tiZANidine 4 MG TABLET PO SCH (08:00)
[2016-12-30 15:08] VITALS: BP 111/70
--- NOTE | 2016-12-30 15:25 | Infectious Disease Progress No ---
Date of Encounter: 12/30/16 Time of Encounter: 15:23 - Assessment and Plan (1) Sepsis Current Visit: Yes Status: Acute The patient had two SIRS criteria on admission. Secondary to right foot cellulitis/OM. Improved. WBC back up today. Tachycardia has improved. Blood cultures drawn 12/21/16 x 2 sets are negative. Qualifiers: Sepsis type: sepsis due to unspecified organism Qualified Code(s): A41.9 - Sepsis, unspecified organism (2) Osteomyelitis of toe of right foot Current Visit: Yes Status: Acute Location: Right great toe. Causative organism GBS and anaerobes. Secondary to diabetic foot ulcer. X-ray negative for OM, but intra-operative findings and labs concerning for OM. Initial ESR >130, CRP 351. Podiatry consulted. Status post I & D for OM, right great toe amputation, and tissue transfer with wound VAC application 12/22/[address] Alexander. Operative report reviewed. Intra-op cultures grew GBS. Status post repeat I & D and debridement of wound to bone with secondary closure of the surgical wound with placement of TLS drain 12/25/[address] Alexander. Operative note reviewed. Abscess noted in the plantar compartment. The patient continues to have leukocytosis. MRI completed today. Report pending. Continue Rocephin 2 grams IV daily. Add flagyl 500mg PO TID. Duration of treatment depends on the clinical picture, but likely 6 weeks of IV antibiotics. [facility] contract reviewed with the patient and has been signed. Continue wound care and activity restrictions as outlined by the primary team. workforce services representative consulted for discharge planning. Get weekly CBC, BUN/Cr, ESR, and CRP every Thursday for the duration of treatment. Weekly midline care per protocol. Follow up with ID 01/13/17 at 0830. (3) Cellulitis of foot, right Current Visit: Yes Status: Acute Location: Right foot. Causative organism likely GBS and anaerobes. Improved. Continue antibiotics as above. (4) Hypertension Current Visit: Yes Status: Chronic Qualifiers: Hypertension type: essential hypertension Qualified Code(s): I10 - Essential (primary) hypertension (5) Tobacco abuse Current Visit: Yes Status: Chronic (6) Type 2 diabetes mellitus Current Visit: Yes Status: Chronic Uncontrolled. HgbA1C 12%. Recommend aggressive glucose monitoring and control to promote wound healing and prevent re-infection. Management per the primary team. Qualifiers: Diabetes mellitus complication status: without complication Diabetes mellitus [facility] insulin use: with [facility] use Qualified Code(s): E11.9 - Type 2 diabetes mellitus without complications; Z79.4 - computer terminal operator (current) use of insulin - Subjective Interval history: Patient seen and examined. Weekend notes reviewed. Patient states that overall she feels well, but complains of arthritis pain in the RLE and right great toe phantom limb pain. Denies fevers, chills, or rigors. Denies chest pain, shortness of breath, or cough. Denies nausea, vomiting, diarrhea, or constipation. Denies abdominal pain and states her appetite is very good. Denies oral thrush or skin lesions. Denies urinary complaints. Infect Dis PN-Objective Data - Labs CBC & Chem 7: 12/30/16 04:31 12/30/16 04:31 Labs: Laboratory Results - last 24 hr 12/29/16 12/29/16 12/29/16 06:59 11:04 16:12 WBC RBC Hgb Hct MCV MCH MCHC RDW Plt Count MPV Immature Gran % Seg Neutrophils % Lymphocytes % Monocytes % Eosinophils % Basophils % Neutrophils # Lymphocytes # Monocytes # Eosinophils # Basophils # Sodium Potassium Chloride Carbon Dioxide BUN Creatinine Est GFR ( Amer) Est GFR (Non-Af Amer) BUN/Creatinine Ratio Glucose POC Glucose 75 97 H 95 H Calculated Osmolality Calcium Total Bilirubin AST ALT Alkaline Phosphatase Serum Total Protein Albumin Globulin Albumin/Globulin Ratio 12/29/16 12/30/16 12/30/16 20:25 04:31 04:31 WBC 15.9 H RBC 3.93 Hgb 11.3 L Hct 34.8 L MCV 88.5 MCH 28.8 MCHC 32.5 RDW 12.6 Plt Count 436 H MPV 9.7 Immature Gran % 4.6 H Seg Neutrophils % 68.4 Lymphocytes % 20.6 Monocytes % 4.2 Eosinophils % 1.6 Basophils % 0.6 Neutrophils # 10.9 H Lymphocytes # 3.3 Monocytes # 0.7 Eosinophils # 0.3 Basophils # 0.1 Sodium 137 Potassium 4.2 Chloride 99 Carbon Dioxide 28 BUN 16 Creatinine 0.62 Est GFR ( Amer) > 60 Est GFR (Non-Af Amer) > 60 BUN/Creatinine Ratio 26 Glucose 70 POC Glucose 141 H Calculated Osmolality 284 Calcium 9.9 Total Bilirubin < 0.3 AST 8 ALT 9 Alkaline Phosphatase 86 Serum Total Protein 6.9 Albumin 2.1 L Globulin 4.8 H Albumin/Globulin Ratio 0.4 L 12/30/16 12/30/16 07:16 11:14 WBC RBC Hgb Hct MCV MCH MCHC RDW Plt Count MPV Immature Gran % Seg Neutrophils % Lymphocytes % Monocytes % Eosinophils % Basophils % Neutrophils # Lymphocytes # Monocytes # Eosinophils # Basophils # Sodium Potassium Chloride Carbon Dioxide BUN Creatinine Est GFR ( Amer) Est GFR (Non-Af Amer) BUN/Creatinine Ratio Glucose POC Glucose 73 124 H Calculated Osmolality Calcium Total Bilirubin AST ALT Alkaline Phosphatase Serum Total Protein Albumin Globulin Albumin/Globulin Ratio Cultures: Cultures 12/22/16 13:15 Anaerobic Culture - Final Right Great Toe Bacteroides fragilis 12/21/16 05:06 Blood Culture - Final Peripheral Venipuncture No growth. 12/21/16 05:06 Blood Culture - Final Peripheral Venipuncture No growth. 12/22/16 13:15 Wound Culture - Final Right Great Toe Strep agalactiae - (Group B) 12/22/16 13:15 Wound Culture - Final Right Great Toe Strep agalactiae - (Group B) - Impressions Impressions Ankle MRI 12/30/16 10:24 IMPRESSION: 1. Soft tissue edema and intrinsic muscular edema with mild corresponding postcontrast enhancement most compatible with cellulitis and myositis. No abnormal marrow signal change identified within the ankle to suggest osteomyelitis. 2. Partially visualized rim enhancing abnormal tissue as described on today's MRI foot again most compatible with devitalized tissue/phlegmon. Small amount of fluid noted along the lateral aspect of this tissue deep to the flexor tendons is again evident. Please see dedicated MRI foot for complete soft tissue findings of the forefoot. 3. Mild tenosynovitis of the posterior tibialis tendon and common peroneal tendon sheath. 4. 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 D/ / Jericho Slaughter MD / Jericho Slaughter MD Interpreting Provider: Jericho Slaughter MD Foot MRI 12/30/16 10:24 IMPRESSION: Image quality is degraded secondary to motion artifact. 1. Rim enhancing soft tissue along the plantar surface of the foot in the region of the surgical drain and extending to the medial surgical scar and around the 1st metatarsal head amputation site as described above. Findings most compatible with devitalized tissue/phlegmon with a small amount of fluid seen laterally as well as adjacent to the 1st metatarsal head as described above which may reflect small abscess versus postsurgical fluid. This lies deep to the distal flexor tendons. 2. Postsurgical changes of great toe amputation with mild patchy marrow edema and postcontrast enhancement of the distal metadiaphysis of the 1st metatarsal. Findings may reflect reactive osteitis although osteomyelitis cannot entirely be excluded given the surrounding soft tissue changes. 3. Soft tissue edema and intrinsic muscular edema with mild postcontrast enhancement most compatible with cellulitis and myositis. D/ / Jericho Slaughter MD / Jericho Slaughter MD Interpreting Provider: Jericho Slaughter MD Exam - Constitutional Vitals: Temp Pulse Resp BP Pulse Ox 97.6 F 86 17 111/70 98 12/30/16 15:06 12/30/16 15:06 12/30/16 15:06 12/30/16 15:06 12/30/16 15:06 General appearance: cooperative, no acute distress, obese - Head Head exam: Present: atraumatic, normal inspection, normocephalic - Eye Eye exam: Present: EOMI, normal appearance, PERRL Pupils: Present: normal accommodation - ENT ENT exam: Present: mucous membranes moist - Neck Neck exam: Present: normal inspection - Respiratory Respiratory exam: Present: CTAB. Absent: rales, respiratory distress, rhonchi, wheezes - Cardiovascular Cardiovascular exam: Present: RRR, +S1, +S2 - GI/Abdominal GI/Abdominal exam: Present: distended (obese), normal bowel sounds, soft. Absent: tenderness - Extremities Exam Extremities exam: Present: pedal edema (Trace RLE). Absent: joint swelling, tenderness Additional comments: Surgical site noted to the right foot. Brenda noted to the medial aspect of the surgical site with sutures over the medial/distal aspect. Small amount of serosanguinous drainage noted in the TLS drain and on the old dressing. - Neurological Exam Neurological exam: Present: alert, oriented X3, no focal deficits - Psychiatric Psychiatric exam: Present: normal affect, normal mood - Skin Skin exam: Present: dry, intact, normal color, warm - Additional findings Additional findings: Midline noted to the LUE with transparent dressing C/d/I. - VTE Documentation of Mechanical Device: Intermittent pneumatic compression device Consult Discharge Plan - Plan Instructions: Diabetes Mellitus Type 2 in Adults (DC), Sepsis (DC), Chronic Hypertension (DC) Additional Instructions: Follow up with PCP in the next 3-5 days Follow up with infectious disease on 01/13/17 at 0830. If you have return of sever pain, change in color or tightness in foot or lower extremity, Fevers, chills, or other concerning symptoms return to the emergency department for further evaluation. Referrals: Andrea Boland MD [Primary Care Provider] - Shanique Mancia CNP [Advanced Practice Nurse] - 01/13/17 8:30 am Prescriptions: cefTRIAXone [Rocephin] 2,000 mg IVPB DAILY #42 vial Insulin DETEMIR [Levemir] 40 unit SQ BID 30 Days
--- NOTE | 2016-12-30 15:31 | Internal Med Progress Note ---
<Sidney Herzog - Last Filed: 12/30/16 15:28> Date of Encounter: 12/30/16 Time of Encounter: 11:00 - Assessment and plan (1) Sepsis Current Visit: Yes Status: Acute Assessment and plan: Resolved, From right great toe infection and cellulitis. Plan: Continue IV ceftriaxone- Wound culture growing group B streptococcus. With plans for roughly 6 weeks therapy. - Moderate risk for complications with uncontrolled diabetes. (2) Osteomyelitis of toe of right foot Current Visit: Yes Status: Acute Assessment and plan: Patient is status post amputation of right great toe secondary to osteomyelitis - Wound cultures grew group B strep - Blood cultures no growth - Initial foot x-ray demonstrates soft tissue involvement but could not rule out osteomyelitis - Initial CRP was 351, ESR greater than 130 - Leukocytosis recurrent, may be related to recent surgery Plan: - Continue wound care - Continue pain management - Continue IV ceftriaxone for group B strep - Patient planned to follow-up with podiatry in the outpatient setting. (3) Group B streptococcal infection Current Visit: Yes Status: Acute Assessment and plan: As in sepsis (4) Type 2 diabetes mellitus Current Visit: Yes Status: Chronic Assessment and plan: Uncontrolled. Hemoglobin A1c of 12.1 at admission - Patient refuses to go off metformin during inpatient stay Plan: - Continue metformin 1000 mg twice a day - Renal function stable, continue to monitor closely - Continue Levemir at 40 units twice a day (5) Hypertension Current Visit: Yes Status: Chronic Assessment and plan: Well-controlled. Plan: - Continue clonidine 0.3 mg by mouth twice a day - HCTZ 50 mg by mouth daily - Cozaar 100 mg daily - Spironolactone 50 mg by mouth daily (6) Tobacco abuse Current Visit: Yes Status: Chronic Assessment and plan: Patient is a current smoker, would benefit from smoking cessation - Smoking cessation discussed (7) DVT prophylaxis Current Visit: Yes Status: Acute Assessment and plan: On subcutaneous Lovenox - Subjective Interval history: Mrs. Peres 46-year-old female since seen and evaluated patient bedside this morning. She is awake alert and interactive no acute distress. She denies any discomfort and says that her pain is controlled with current medications for pain. She denies any nausea, vomiting, diarrhea, constipation, fevers chills sweating, chest pain palpitations with urination or defecation. She is planning for discharge home today. - Constitutional Vitals: Temp Pulse Resp BP Pulse Ox 97.6 F 86 17 111/70 98 12/30/16 15:06 12/30/16 15:06 12/30/16 15:06 12/30/16 15:06 12/30/16 15:06 General appearance: Present: cooperative, A&O X 3, pleasant, no acute distress, answers questions appropriately Exam: General: Patient alert, awake, oriented 3, interactive, in no acute distress HEENT: Normocephalic, atraumatic, pupils equal reactive to light, nasal cavity patent and open septum median position, oral mucosa moist, poor dentition, uvula midline, neck supple trachea midline no palpable lymphadenopathy, no thyromegaly. Chest: Symmetric bilateral correlating with respiratory effort, effort nonlabored. Cardiac: Regular rate and rhythm, positive S1, S2, no bruits appreciated bilateral carotids, Radial pulses 2+ bilateral, posterior tibial and dorsal pedal pulses 2+ bilateral. Respiratory: Diffuse inspiratory and expiratory wheezing, no ronchi or rales appreciated on examination. Abdomen: Soft, nontender, positive bowel sounds, no palpable masses appreciated on examination Extremities: Symmetric bilateral, no erythema or edema, patient moving all 4 extremities spontaneously. Surgical scar at site of amputation of the left fourth toe, right foot bandage with wound VAC status post amputation of right great toe, neurovascularly intact. Neurologic: No focal deficits appreciated on examination. Face symmetric, muscle strength symmetric bilateral upper and lower extremities. Internal Medicine: Result - Labs CBC & Chem 7: 12/30/16 04:31 12/30/16 04:31 Labs: Short CBC 12/30/16 Range/Units 04:31 WBC 15.9 H (4.3-11.1) K/mcL Hgb 11.3 L (11.5-15.4) g/dL Hct 34.8 L (35.3-44.9) % Plt Count 436 H (140-400) K/mcL Neutrophils # 10.9 H (1.6-8.9) K/mcL BMP 12/30/16 04:31 Sodium 137 Potassium 4.2 Chloride 99 Carbon Dioxide 28 BUN 16 Creatinine 0.62 Glucose 70 Calcium 9.9 Liver Function 12/30/16 Range/Units 04:31 Total Bilirubin < 0.3 (0.2-1.2) mg/dL AST 8 (5-34) Units/L ALT 9 (0-55) Units/L Alkaline Phosphatase 86 (38-126) Units/L Albumin 2.1 L (3.5-5.0) g/dL - ABG Interpretation ABG results: PT/INR, D-dimer PT 11.9 Seconds (9.4-12.1) 12/21/16 05:06 - Impressions Impressions Ankle MRI 12/30/16 10:24 IMPRESSION: 1. Soft tissue edema and intrinsic muscular edema with mild corresponding postcontrast enhancement most compatible with cellulitis and myositis. No abnormal marrow signal change identified within the ankle to suggest osteomyelitis. 2. Partially visualized rim enhancing abnormal tissue as described on today's MRI foot again most compatible with devitalized tissue/phlegmon. Small amount of fluid noted along the lateral aspect of this tissue deep to the flexor tendons is again evident. Please see dedicated MRI foot for complete soft tissue findings of the forefoot. 3. Mild tenosynovitis of the posterior tibialis tendon and common peroneal tendon sheath. 4. 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 D/ / Jericho Slaughter MD / Jericho Slaughter MD Interpreting Provider: Jericho Slaughter MD Foot MRI 12/30/16 10:24 IMPRESSION: Image quality is degraded secondary to motion artifact. 1. Rim enhancing soft tissue along the plantar surface of the foot in the region of the surgical drain and extending to the medial surgical scar and around the 1st metatarsal head amputation site as described above. Findings most compatible with devitalized tissue/phlegmon with a small amount of fluid seen laterally as well as adjacent to the 1st metatarsal head as described above which may reflect small abscess versus postsurgical fluid. This lies deep to the distal flexor tendons. 2. Postsurgical changes of great toe amputation with mild patchy marrow edema and postcontrast enhancement of the distal metadiaphysis of the 1st metatarsal. Findings may reflect reactive osteitis although osteomyelitis cannot entirely be excluded given the surrounding soft tissue changes. 3. Soft tissue edema and intrinsic muscular edema with mild postcontrast enhancement most compatible with cellulitis and myositis. D/ / Jericho Slaughter MD / Jericho Slaughter MD Interpreting Provider: Jericho Slaughter MD - VTE Documentation of Mechanical Device: Intermittent pneumatic compression device Consult Discharge Plan - Plan Instructions: Diabetes Mellitus Type 2 in Adults (DC), Sepsis (DC), Chronic Hypertension (DC) Additional Instructions: Follow up with PCP in the next 3-5 days Follow up with infectious disease on 01/13/17 at 0830. If you have return of sever pain, change in color or tightness in foot or lower extremity, Fevers, chills, or other concerning symptoms return to the emergency department for further evaluation. Referrals: Andrea Boland MD [Primary Care Provider] - Shanique Mancia CNP [Advanced Practice Nurse] - 01/13/17 8:30 am Prescriptions: cefTRIAXone [Rocephin] 2,000 mg IVPB DAILY #42 vial Insulin DETEMIR [Levemir] 40 unit SQ BID 30 Days <Jesus Wayne - Last Filed: 12/30/16 15:37> Date of Encounter: 12/30/16 - Assessment and plan (1) Osteomyelitis of toe of right foot Current Visit: Yes Status: Acute (2) Cellulitis of foot, right Current Visit: Yes Status: Acute (3) Type 2 diabetes mellitus Current Visit: Yes Status: Chronic Qualifiers: Diabetes mellitus complication status: without complication Diabetes [facility] Qualified Code(s): E11.9 - Type 2 diabetes mellitus without complications; Z79.4 - long term care phlebotomist (current) use of insulin (4) Sepsis Current Visit: Yes Status: Acute Qualifiers: Sepsis type: sepsis due to unspecified organism Qualified Code(s): A41.9 - Sepsis, unspecified organism (5) Hypertension Current Visit: Yes Status: Chronic Qualifiers: Hypertension type: essential hypertension Qualified Code(s): I10 - Essential (primary) hypertension (6) Tobacco abuse Current Visit: Yes Status: Chronic (7) DVT prophylaxis Current Visit: Yes Status: Acute (8) Group B streptococcal infection Current Visit: Yes Status: Acute - Constitutional Vitals: Temp Pulse Resp BP Pulse Ox 97.6 F 86 17 111/70 98 12/30/16 15:06 12/30/16 15:06 12/30/16 15:06 12/30/16 15:06 12/30/16 15:06 Internal Medicine: Result - Labs CBC & Chem 7: 12/30/16 04:31 12/30/16 04:31 Labs: Short CBC 12/30/16 Range/Units 04:31 WBC 15.9 H (4.3-11.1) K/mcL Hgb 11.3 L (11.5-15.4) g/dL Hct 34.8 L (35.3-44.9) % Plt Count 436 H (140-400) K/mcL Neutrophils # 10.9 H (1.6-8.9) K/mcL BMP 12/30/16 04:31 Sodium 137 Potassium 4.2 Chloride 99 Carbon Dioxide 28 BUN 16 Creatinine 0.62 Glucose 70 Calcium 9.9 Liver Function 12/30/16 Range/Units 04:31 Total Bilirubin < 0.3 (0.2-1.2) mg/dL AST 8 (5-34) Units/L ALT 9 (0-55) Units/L Alkaline Phosphatase 86 (38-126) Units/L Albumin 2.1 L (3.5-5.0) g/dL - ABG Interpretation ABG results: PT/INR, D-dimer PT 11.9 Seconds (9.4-12.1) 12/21/16 05:06 - Impressions Impressions Ankle MRI 12/30/16 10:24 IMPRESSION: 1. Soft tissue edema and intrinsic muscular edema with mild corresponding postcontrast enhancement most compatible with cellulitis and myositis. No abnormal marrow signal change identified within the ankle to suggest osteomyelitis. 2. Partially visualized rim enhancing abnormal tissue as described on today's MRI foot again most compatible with devitalized tissue/phlegmon. Small amount of fluid noted along the lateral aspect of this tissue deep to the flexor tendons is again evident. Please see dedicated MRI foot for complete soft tissue findings of the forefoot. 3. Mild tenosynovitis of the posterior tibialis tendon and common peroneal tendon sheath. 4. 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 D/ / Jericho Slaughter MD / Jericho Slaughter MD Interpreting Provider: Jericho Slaughter MD Foot MRI 12/30/16 10:24 IMPRESSION: Image quality is degraded secondary to motion artifact. 1. Rim enhancing soft tissue along the plantar surface of the foot in the region of the surgical drain and extending to the medial surgical scar and around the 1st metatarsal head amputation site as described above. Findings most compatible with devitalized tissue/phlegmon with a small amount of fluid seen laterally as well as adjacent to the 1st metatarsal head as described above which may reflect small abscess versus postsurgical fluid. This lies deep to the distal flexor tendons. 2. Postsurgical changes of great toe amputation with mild patchy marrow edema and postcontrast enhancement of the distal metadiaphysis of the 1st metatarsal. Findings may reflect reactive osteitis although osteomyelitis cannot entirely be excluded given the surrounding soft tissue changes. 3. Soft tissue edema and intrinsic muscular edema with mild postcontrast enhancement most compatible with cellulitis and myositis. D/ / Jericho Slaughter MD / Jericho Slaughter MD Interpreting Provider: Jericho Slaughter MD - Attending Attestation I have independently seen and examined this patient on 12/29/16. I have reviewed his EMR and discussed plan of care with the resident, the patient 46 F with PMH of Uncontrolled Complicated DM, with A1C of 12%, HTN, Tobacco abuse admitted for management of Sepsis secondary to R big toe cellulitis with osteomyelitis, she is s/p R big toe amputation. Wound revision and secondary closure Wound culture is growing strep agalacatiae. Physical exam: VSS, afebrile, Neuro: normal gait, no deficits, abdomen is soft and benign, chest is clear, HS S1, S2 only, extremities: R foot dressing clean and dry, R big toe site of amputation with stitches intact, she has some drainage on the drain with visible pus, however, her wound looked clean. Labs and Imaging reviewed: Leukocytosis, renal function is stable Plan is to continue current management,medically stable for discharge once cleared by SW. Foot and ankle MRI noted, no drainable collection Rest of details as in resident physicians documentation
--- NOTE | 2016-12-30 16:53 | Podiatry Progress Note ---
Date of Encounter: 12/30/16 Time of Encounter: 16:35 - Assessment and Plan (1) Osteomyelitis of toe of right foot Current Visit: Yes Status: Acute Patient is s/p incision and drainage to bone for osteomyelitis, amputation of right great toe, adjacent tissue transfer and placement of wound VAC by Dr. Alexander on 12/22/16. S/p Repeat I&D debridement of wound to bone with secondary closure of surgical wound with placement of TLS drain 12/25/[address] Alexander. Incision line evaluated today, TLS drain intact and patent. Incision line well approximated, no complications. 40 mls of output from TLS drain documented on nursing record overnight. 7mls of serous drainage observed to vacutainer today over the past 12 hours. MRI of the right foot and ankle ordered today due to increased WBC of 15.9. MRI reviewed by Dr. Alexander, no abscess seen. Patient okay to be discharged with Antibiotics therapy x 6 weeks and daily dressing changes. Antibiotic recommendations per ID. Patient will be discharged with 6 weeks of IV Rocephin 2gm IV daily and Flagyl 500 mg PO TID. Midline in place. Remain protective weight bearing to right foot, no weight to be applied to right forefoot. Continue daily dressing changes as ordered. TLS drain to be changed when half full. Patient will need extra vacutainers when discharged home. [employer] coordinating discharge with home health care. Patient will need to f/u with Dr. Alexander in Podiatry clinic with in one week of discharge from the hospital. (2) Cellulitis of foot, right Current Visit: Yes Status: Acute (3) Type 2 diabetes mellitus Current Visit: Yes Status: Chronic Qualifiers: Diabetes mellitus complication status: without complication Diabetes mellitus fpc insulin use: with fpc use Qualified Code(s): E11.9 - Type 2 diabetes mellitus without complications; Z79.4 - half-way (current) use of insulin (4) Sepsis Current Visit: Yes Status: Acute Qualifiers: Sepsis type: sepsis due to unspecified organism Qualified Code(s): A41.9 - Sepsis, unspecified organism Subjective Principal diagnosis: foot infection Interval history: Patient is s/p incision and drainage to bone for osteomyelitis, amputation of right great toe, adjacent tissue transfer and placement of wound VAC by Dr. Alexander on 12/22/16. S/p Repeat I&D debridement of wound to bone with secondary closure of surgical wound with placement of TLS drain 12/25/[address] Alexander. Patient is lying in bed with dressing dry and intact. 40mls of output from TLS drain documented in nursing record overnight. 7mls of serous drainage observed to vacutainer today. Vacutainer has not been changed since 5am this morning. Patient had an MRI ordered of the right foot and ankle today to rule out an occult abscess. Dr. Alexander reviewed MRI report and no abscess seen. Patient can be discharged with 6 weeks of IV antibiotic therapy. Patient states she wants to go home today. Patient states the pain medication is making her pain tolerable. No c/o fever or chills overnight. Objective - Vital Signs Vital Signs: Vital Signs Temp Pulse Resp BP Pulse Ox 12/30/16 15:06 97.6 F 86 17 111/70 98 12/30/16 10:40 98.1 F 78 16 111/71 96 12/30/16 07:12 97 12/30/16 07:11 98.3 F 74 16 146/83 97 12/30/16 05:14 98.1 F 70 16 127/79 97 12/30/16 01:09 97.3 F L 73 16 130/69 98 12/29/16 20:27 97.6 F 88 16 136/77 96 Intake and Output 12/30/16 12/30/16 12/30/16 07:59 15:59 23:59 Intake Total 120 / 120 240 / 240 100 / 100 Output Total 1040 / 1040 700 / 700 Balance -920 / -920 -460 / -460 100 / 100 Intake: IV Fluids 100 / 100 Rocephin 2,000 MG In 100 / 100 Dextrose 5% (Minibag+) 100 ML 100 ML @ 200 mls/ hr IVPB Q24H [facility] Rx#: [id number] Oral 120 / 120 240 / 240 Output: Urine 1000 / 1000 700 / 700 Wound Drainage 40 / 40 Right Toe 40 / 40 Other: Meal Breakfast Percent of Meal Consumed 100% # Voids 1 # Bowel Movements 0 0 Weight 85.4 kg 85.4 kg Blood Glucose* 73 124 267 Patient Weight 12/30/16 23:59 Weight 85.4 kg - Exam Exam: General appearance: alert awake oriented X 3. Calm and pleasant, no acute distress.. Vascular: Pedal pulses +2/4 DP/PT , No evidence of cyanosis, pallor or rubor, Edema graded at 1+/4, Skin Temperature warm, No calf pain with manual compression. capillary refill time is immediate to digits. Postop Exam: S/P Sutures intact to incision line, no signs of dehiscence. TLS intact and patent, 7 mls of serous drainage observed to vacutainer. No erythema, no streaking, no fluctuance. Minimal edema. - Lab Result Diagrams: 12/30/16 04:31 12/30/16 04:31 Labs: Abnormal lab results WBC 15.9 K/mcL (4.3-11.1) H 12/30/16 04:31 Hgb 11.3 g/dL (11.5-15.4) L 12/30/16 04:31 Hct 34.8 % (35.3-44.9) L 12/30/16 04:31 Plt Count 436 K/mcL (140-400) H 12/30/16 04:31 Immature Gran % 4.6 % (0-4) H 12/30/16 04:31 Neutrophils # 10.9 K/mcL (1.6-8.9) H 12/30/16 04:31 Large Platelets Present (Not Present) A 12/28/16 05:35 ESR >= 130 mm/hr (0-15) H 12/21/16 08:49 POC Glucose 124 (58-89) H 12/30/16 11:14 Hemoglobin A1c 12.1 % (-5.6) H 12/21/16 05:06 C-Reactive Protein 351 mg/L (Less than 5) H 12/21/16 08:49 Albumin 2.1 g/dL (3.5-5.0) L 12/30/16 04:31 Globulin 4.8 g/dL (2.4-3.5) H 12/30/16 04:31 Albumin/Globulin Ratio 0.4 (1.1-2.2) L 12/30/16 04:31 - VTE Documentation of Mechanical Device: Intermittent pneumatic compression device Consult Discharge Plan - Plan Instructions: Diabetes Mellitus Type 2 in Adults (DC), Sepsis (DC), Chronic Hypertension (DC) Additional Instructions: Follow up with PCP in the next 3-5 days Follow up with infectious disease on 01/13/17 at 0830. If you have return of sever pain, change in color or tightness in foot or lower extremity, Fevers, chills, or other concerning symptoms return to the emergency department for further evaluation. Referrals: Andrea Boland MD [Primary Care Provider] - Shanique Mancia CNP [Advanced Practice Nurse] - 01/13/17 8:30 am Prescriptions: cefTRIAXone [Rocephin] 2,000 mg IVPB DAILY #42 vial Insulin DETEMIR [Levemir] 40 unit SQ BID 30 Days metroNIDAZOLE [Flagyl] 500 mg PO TID #105 tab
[2016-12-30] MEDS ORDERED: metroNIDAZOLE 500 MG TABLET PO SCH (21:00)
== END 2016-12-30 18:39 | disposition home health service (06) | DRG 854 ==
LOC: 3NENU → SUATTDRO 12-21 03:36 → 3ANU 12-22 13:09
PROVIDERS: ADMIT Internal Medicine; ATTEND Internal Medicine